=== PATIENT | female | born 1935 ===

== ENCOUNTER 2020-05-07 07:19 | Outpatient (REF) | payer MEDICARE, MEDICAID, SELFPAY ==
[2020-05-07 08:57] LABS: MANUAL DIFF FLAG NO
[2020-05-07 09:05] LABS: Basophils Absolute Auto 0.1 X10*3/uL (0.0-0.2); Basophils Percent Auto 0.7 % (0-2); Eosinophils Absolute Auto 0.3 X10*3/uL (0.0-0.4); Hematocrit 39.9 % (37-47); Hemoglobin 12.2 g/dl (12.0-16.0); Imm Gran Abs Auto 0.01 X10*3/uL (0.00-0.03); Imm Gran Pct Auto 0.1 % (0.0-0.4); Lymphocytes Absolute Auto 1.9 X10*3/uL (1.2-4.9); Lymphocytes Percent Auto 26.8 % (20-40); Mean Corpuscular HGB Conc 30.6 g/dl (31.0-35.0); Mean Corpuscular Hemoglobin 23.4 pg (27.0-33.0); Mean Corpuscular Volume 76.4 fL (80-98); Mean Platelet Volume 12.5 fL (9.4-12.3); Monocytes Absolute Auto 0.7 X10*3/uL (0.1-1.2); Monocytes Percent Auto 9.4 % (2-11); Neutrophils Absolute Auto 4.1 X10*3/uL (2.0-8.3); Platelet Count 226 X10*3/uL (160-400); Red Blood Count 5.22 X10*6/uL (4.20-5.50); White Blood Count 6.9 X10*3/uL (4.8-10.8)
[2020-05-07 09:22] LABS: Alanine Aminotransferase 13 U/L (0-31); Albumin Level 4.1 g/dL (3.5-5.0); Alkaline Phosphatase 85 U/L (39-117); Anion Gap 13 (12-20); Aspartate Amino Transferase 20 U/L (5-31); Bilirubin Total 0.6 mg/dL (0.0-1.0); Blood Urea Nitrogen 18 mg/dL (9-16); Calcium 9.1 mg/dL (8.4-10.2); Carbon Dioxide 27 mmol/L (22-29); Chloride 107 mmol/L (96-108); Cholesterol 169 mg/dL; Estimated Glomerular Filt Rate > 60; Glucose Random 88 mg/dL (60-115); HDL Cholesterol 49 mg/dL; LDL Cholesterol Calculated 104 mg/dl; Potassium 4.6 mmol/L (3.3-5.1); Sodium 142 mmol/L (135-145); Total Protein 6.9 g/dL (6.5-8.0); Triglycerides 83 mg/dL
[2020-05-07 09:46] LABS: Free T4 (Free Thyroxine) 0.88 ng/dL (0.71-1.85); Vitamin D 25-OH Total 19.8 ng/mL (>30)
[2020-05-07 10:10] LABS: Erythrocyte Sedimentation Rate 18 MM/HR (0-20)
[2020-05-08 12:11] LABS: Folate 6.9 ng/mL (> or = 4.0); Vitamin B12 359 pg/mL (200-900)
== END 2020-05-07 07:20 | disposition home or self-care (01) ==
LOC: HO.LAB 07:19
PROVIDERS: PCP Internal Medicine; Visit Provider Internal Medicine
DX: E78.00 Pure hypercholesterolemia, unspecified (principal); M06.09 Rheumatoid arthritis without rheumatoid factor, multiple sites; Z20.822 Contact with and (suspected) exposure to COVID-19
CPT/HCPCS: 36415; 80053; 80061; 82306; 82607; 82746; 84439; 84443; 85025; 85652; U0003; U0005

== ENCOUNTER 2021-02-04 07:24 | Outpatient (REF) | payer MEDICARE, MEDICAID, SELFPAY ==
[2021-02-04 07:33] LABS: MANUAL DIFF FLAG NO
[2021-02-04 08:32] LABS: Basophils Absolute Auto 0.1 X10*3/uL (0.0-0.2); Basophils Percent Auto 0.8 % (0-2); Eosinophils Absolute Auto 0.3 X10*3/uL (0.0-0.4); Eosinophils Percent Auto 3.8 % (0-4); Hematocrit 40.6 % (37.0-47.0); Hemoglobin 12.6 g/dl (12.0-16.0); Imm Gran Abs Auto 0.03 X10*3/uL (0.00-0.03); Imm Gran Pct Auto 0.4 % (0.0-0.4); Immature Retic Fraction 14.2 % (3.0-15.9); Lymphocytes Absolute Auto 2.2 X10*3/uL (1.2-4.9); Lymphocytes Percent Auto 28.6 % (20-40); Mean Corpuscular Hemoglobin 23.8 pg (27.0-33.0); Mean Corpuscular Volume 76.6 fL (80.0-98.0); Mean Platelet Volume 12.2 fL (9.4-12.3); Monocytes Absolute Auto 0.6 X10*3/uL (0.1-1.2); Monocytes Percent Auto 7.8 % (2-11); Neutrophils Absolute Auto 4.4 x10*3/uL (2.0-8.3); Neutrophils Percent Auto 58.6 % (45-73); Platelet Count 215 X10*3/uL (160-400); Red Cell Distribution Width 14.6 % (11.0-16.0); Retic HGB Equivalent 25.9 pg (30.0-35.0); Reticulocyte Percent 1.3 % (0.5-1.8); Reticulocytes Absolute 0.067 X10*6/uL (0.026-0.095); White Blood Count 7.5 X10*3/uL (4.8-10.8)
[2021-02-04 09:08] LABS: Alanine Aminotransferase 22 U/L (0-31); Albumin Level 4.1 g/dL (3.5-5.0); Alkaline Phosphatase 95 U/L (39-117); Anion Gap 12 (12-20); Aspartate Amino Transferase 25 U/L (5-31); Bilirubin Total 0.4 mg/dL (0.0-1.0); Blood Urea Nitrogen 15 mg/dL (9-16); Calcium 9.7 mg/dL (8.4-10.2); Carbon Dioxide 26 mmol/L (22-29); Chloride 107 mmol/L (96-108); Cholesterol 180 mg/dL; Estimated Glomerular Filt Rate > 60; Glucose Random 84 mg/dL (60-115); HDL Cholesterol 55 mg/dL; Iron 105 mcg/dL (30-160); LDL Cholesterol Calculated 112 mg/dl; Percent Iron Saturation 37 % (15-50); Potassium 4.5 mmol/L (3.3-5.1); Sodium 140 mmol/L (135-145); Total Iron Binding Capacity 283 mcg/dL (228-428); Total Protein 7.1 g/dL (6.5-8.0); Triglycerides 66 mg/dL; Unsaturated Iron Binding 178 ug/dL
[2021-02-04 09:16] LABS: Ferritin 120 ng/mL (10-250)
[2021-02-04 10:52] LABS: Folate 8.8 ng/mL (> or = 4.0); Vitamin B12 394 pg/mL (200-900)
== END 2021-02-04 07:25 | disposition home or self-care (01) ==
LOC: HO.LAB 07:24
PROVIDERS: PCP Internal Medicine; Visit Provider Internal Medicine
DX: R71.8 Other abnormality of red blood cells (principal); E78.00 Pure hypercholesterolemia, unspecified
CPT/HCPCS: 36415; 80053; 80061; 82607; 82728; 82746; 83540; 85025; 85045

== ENCOUNTER 2021-06-17 10:04 | Outpatient (REF) | payer MEDICARE, MEDICAID, SELFPAY ==
--- NOTE | ~2021-06-17 | MM_ITS ---
EXAMINATION: BONE DENSITOMETRY CLINICAL INDICATION: Menopausal. COMPARISON: This is the patient's baseline examination. TECHNIQUE: Using a [employer] DXA System (software version: 13.1) manufactured by [employer], dual-energy x-ray absorptiometry was performed of the lumbar spine and left hip. The images are of good technical quality. Summary results are attached. FINDINGS: AP SPINE L1-L4: BMD 1.130 g/cm2, Z-score 1.8, T-score -0.4, normal. LEFT FEMUR, NECK: BMD 0.750 g/cm2, Z-score 0.6, T-score -2.1, osteopenia. LEFT FEMUR, TOTAL: BMD 0.744 g/cm2, Z-score 0.5, T-score -2.1, osteopenia. IDENTIFIED RISK FACTORS: Rheumatoid arthritis, dementia, menopause, hysterectomy, bilateral oophorectomy. HISTORY OF FRACTURE: None listed. MEDICATIONS: Calcium supplements or multivitamin, vitamin D. MM/XR DEXA axial skeleton IMPRESSION: 1. DIAGNOSIS: Osteopenia based on the lowest T-score value of -2.1 in the femoral neck and total femur applying World Health Organization criteria. 2. 10-YEAR FRACTURE RISK PREDICTION, FRAX: Major osteoporotic fracture (clinical spine, forearm, hip or shoulder) 19.7%. Hip fracture 7.1%. 3. Treatment Recommendations: NOF guidelines recommend consideration for treatment in postmenopausal women and men age 50 and older presenting with the following: -A hip or vertebral (clinical or morphometric) fracture. -T-score less than or equal to -2.5 at the femoral neck or spine after appropriate evaluation to exclude secondary causes. -Low bone mass at the hip or spine and a 10-year fracture probability by FRAX of greater than or equal to 3% for hip fracture or greater than or equal to 20% for major osteoporotic fracture based on the [place] adapted WHO algorithm. 4. Other Recommendations: All treatment decisions require clinical judgment and consideration of individual patient factors, including patient preferences, comorbidities, previous drug use, risk factors not captured in the FRAX model (e.g. frailty, falls, vitamin D deficiency, increased bone turnover, interval significant decline in bone density) and possible under or overestimation of fracture risk by FRAX. Additional medical evaluation for secondary cause of low bone mineral density may be appropriate. FUTURE SCAN RECOMMENDATION: People with diagnosed cases of osteoporosis or at high risk for fracture should have regular bone mineral density tests. For patients eligible for Medicare, routine testing is allowed once every 2 years. The testing frequency can be increased to one year for patients who have rapidly progressing disease, those who are receiving or discontinuing medical therapy to restore bone mass, or have additional risk factors.
== END 2021-06-17 10:05 | disposition home or self-care (01) ==
LOC: HO.MAMMO 10:04
PROVIDERS: Visit Provider Nurse Practitioner Family
DX: Z13.820 Encounter for screening for osteoporosis (principal); Z78.0 Asymptomatic menopausal state; M85.80 Other specified disorders of bone density and structure, unspecified site
CPT/HCPCS: 77080

== ENCOUNTER 2021-07-29 07:25 | Outpatient (REF) | payer MEDICARE, MEDICAID, SELFPAY ==
[2021-07-29 08:47] LABS: Influenza A PCR NEGATIVE (Negative); Influenza B PCR NEGATIVE (Negative); Resp Syncy Virus RNA Qual PCR NEGATIVE (Negative); SARS COV2 PCR INHOUSE NEGATIVE (Negative)
== END 2021-07-29 07:26 | disposition home or self-care (01) ==
LOC: HO.LAB 07:25
PROVIDERS: Visit Provider Nurse Practitioner Family
DX: R09.81 Nasal congestion (principal); Z20.822 Contact with and (suspected) exposure to COVID-19
CPT/HCPCS: 0241U

== ENCOUNTER 2021-09-27 07:12 | Outpatient (REF) | payer MEDICARE, MEDICAID, SELFPAY ==
[2021-09-27 07:58] LABS: Alanine Aminotransferase 10 U/L (0-31); Alkaline Phosphatase 79 U/L (39-117); Anion Gap 12 (12-20); Aspartate Amino Transferase 17 U/L (5-31); Bilirubin Total 0.4 mg/dL (0.0-1.0); Blood Urea Nitrogen 14 mg/dL (9-16); Calcium 9.3 mg/dL (8.4-10.2); Carbon Dioxide 25 mmol/L (22-29); Chloride 108 mmol/L (96-108); Cholesterol 249 mg/dL; Estimated Glomerular Filt Rate > 60; Glucose Random 93 mg/dL (60-115); HDL Cholesterol 51 mg/dL; LDL Cholesterol Calculated 177 mg/dl; Potassium 4.4 mmol/L (3.3-5.1); Sodium 141 mmol/L (135-145); Total Protein 7.1 g/dL (6.5-8.0); Triglycerides 107 mg/dL
[2021-09-27 08:11] LABS: Free T4 (Free Thyroxine) 1.38 ng/dL (0.71-1.85); Thyroid Stimulating Hormone 2.27 uIU/mL (0.32-4.0)
== END 2021-09-27 07:13 | disposition home or self-care (01) ==
LOC: HO.LAB 07:12
PROVIDERS: PCP Internal Medicine; Visit Provider Internal Medicine
DX: E78.00 Pure hypercholesterolemia, unspecified (principal)
CPT/HCPCS: 36415; 80053; 80061; 84439; 84443

== ENCOUNTER 2022-04-05 06:35 | Outpatient (REF) | payer MEDICARE, MEDICAID, SELFPAY ==
[2022-04-05 06:41] LABS: MANUAL DIFF FLAG NO
[2022-04-05 07:41] LABS: Basophils Absolute Auto 0.1 X10*3/uL (0.0-0.2); Basophils Percent Auto 0.9 % (0-2); Eosinophils Absolute Auto 0.3 X10*3/uL (0.0-0.4); Eosinophils Percent Auto 3.8 % (0-4); Hematocrit 40.9 % (37.0-47.0); Hemoglobin 12.8 g/dl (12.0-16.0); Imm Gran Abs Auto 0.02 X10*3/uL (0.00-0.03); Imm Gran Pct Auto 0.2 % (0.0-0.4); Immature Retic Fraction 13.9 % (3.0-15.9); Lymphocytes Absolute Auto 2.5 X10*3/uL (1.2-4.9); Lymphocytes Percent Auto 29.4 % (20-40); Mean Corpuscular HGB Conc 31.3 g/dl (31.0-35.0); Mean Corpuscular Hemoglobin 23.8 pg (27.0-33.0); Mean Platelet Volume 11.8 fL (9.4-12.3); Monocytes Absolute Auto 0.9 X10*3/uL (0.1-1.2); Monocytes Percent Auto 10.1 % (2-11); Neutrophils Absolute Auto 4.7 x10*3/uL (2.0-8.3); Neutrophils Percent Auto 55.6 % (45-73); Platelet Count 220 X10*3/uL (160-400); Red Blood Count 5.38 X10*6/uL (4.20-5.50); Red Cell Distribution Width 15.1 % (11.0-16.0); Retic HGB Equivalent 26.9 pg (30.0-35.0); Reticulocyte Percent 1.3 % (0.5-1.8); Reticulocytes Absolute 0.069 X10*6/uL (0.026-0.095); White Blood Count 8.5 X10*3/uL (4.8-10.8)
[2022-04-05 08:12] LABS: Alanine Aminotransferase 13 U/L (0-31); Alkaline Phosphatase 83 U/L (39-117); Anion Gap 17 (12-20); Aspartate Amino Transferase 18 U/L (5-31); Bilirubin Total 0.7 mg/dL (0.0-1.0); Blood Urea Nitrogen 16 mg/dL (9-16); C Reactive Protein 0.25 mg/dL (< or = 0.50); Calcium 9.4 mg/dL (8.4-10.2); Carbon Dioxide 22 mmol/L (22-29); Chloride 105 mmol/L (96-108); Cholesterol 178 mg/dL; Estimated Glomerular Filt Rate > 60; Glucose Random 83 mg/dL (60-115); HDL Cholesterol 61 mg/dL; Iron 82 mcg/dL (30-160); LDL Cholesterol Calculated 103 mg/dl; Percent Iron Saturation 29 % (15-50); Sodium 140 mmol/L (135-145); Total Iron Binding Capacity 285 mcg/dL (228-428); Total Protein 6.9 g/dL (6.5-8.0); Triglycerides 70 mg/dL; Unsaturated Iron Binding 203 ug/dL
[2022-04-05 08:26] LABS: Erythrocyte Sedimentation Rate 19 MM/HR (0-20)
[2022-04-05 08:32] LABS: Ferritin 105 ng/mL (10-250); Folate 9.9 ng/mL (> or = 4.0); Free T4 (Free Thyroxine) 0.85 ng/dL (0.71-1.85); Thyroid Stimulating Hormone 3.16 uIU/mL (0.32-4.0); Vitamin B12 316 pg/mL (200-900); Vitamin D 25-OH Total 11.4 ng/mL (>30)
== END 2022-04-05 06:36 | disposition home or self-care (01) ==
LOC: HO.LAB 06:35
PROVIDERS: PCP Internal Medicine; Visit Provider Internal Medicine
DX: E78.00 Pure hypercholesterolemia, unspecified (principal); R71.8 Other abnormality of red blood cells; M06.09 Rheumatoid arthritis without rheumatoid factor, multiple sites; M85.80 Other specified disorders of bone density and structure, unspecified site; E55.9 Vitamin D deficiency, unspecified
CPT/HCPCS: 36415; 80053; 80061; 82306; 82607; 82728; 82746; 83540; 84439; 84443; 85025; 85045; 85652; 86140

== ENCOUNTER 2022-04-06 09:05 | Outpatient (REF) | payer MEDICARE, MEDICAID, SELFPAY ==
--- NOTE | 2022-04-06 11:32 | MHC.AU.HA1 ---
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 Discussed importance of daily, consistent use. Luna is accompanied by Paz, her friend and healthcare proxy. Per Paz, Luna is showing signs of dementia. She also often has difficulty understanding conversations and requires frequent repetition. Luna and Paz opted for a rechargeable BTE hearing aid due to its durability. Luna wears a veil over her ears. Kendall'ed [id number] portion of hearing aid with the veil and she reported no issues with comfort. Paz reported that hearing aids will be beneficial for Luna once she adjusts to wearing them. Hearing Aid Prescription: Based on the individual?s shared listening needs, communication environments, dexterity, desire for connectivity, and personal preferences, the following prescription for amplification has been made: Right ear: Make, Model, Color: Oticon More 2 miniBTE-R Color: Chroma Beige Battery Size: Rechargeable Type of Earmold/Dome/CShell/SlimTip: Microsonic acrylic canal lock Left ear: Left ear prescription to be same as Right Hearing Aid above: Make, Model, Color: Oticon More 2 miniBTE-R Color: Chroma Beige Battery Size: Rechargeable Type of Earmold/Dome/CShell/SlimTip: Microsonic acrylic canal lock Plan of Care: Patient wishes to purchase hearing aids as prescribed Action Taken/Action Needed: Earmold Impressions Taken. Medical Clearance to be requested from PCP/ENT. Hearing Instrument Fitting to be scheduled when materials arrive Primary Diagnosis: H90.3 Bilateral Sensorineural Hearing Loss Signature: Provider: Dwain Purvis, [facility]
--- NOTE | 2022-04-06 11:33 | MHC.AU.MED ---
Medical Clearance for Hearing Instrumentation Date: 04/06/22 Patient Name: Luna Hoang SR Date of : 1935 Primary Care Provider: Jordon Nelson MD We have seen your patient on 04/06/22 and have determined that they are a candidate for amplification (See accompanying report). Specifically, they would benefit from: Hearing aid use in both ears There is a statute that addresses Medical Evaluation Requirements prior to fitting a patient with a hearing aid. According to [place] statute 265 CMR:6.03(1), (a) General. Except as provided in 265 CMR 6.03(1)(b), a administrative receptionist shall not sell a hearing aid unless the prospective user has presented to the administrative receptionist a written statement signed by a licensed physician that states that the patient's hearing loss has been medically evaluated and the patient may be considered a candidate for a hearing aid. The medical evaluation must have taken place within the preceding six months. Please note: Due to the [place] Statute referenced above, we cannot accept a signature other than that of a licensed physician. SIDING APPLICATOR and PA signatures cannot be accepted. I am in agreement with the above recommendation. There is no medical contraindication for hearing instrumentation. Physician Signature Date Physician Name (Printed)
== END 2022-04-06 09:06 | disposition home or self-care (01) ==
LOC: HO.SH 09:05
PROVIDERS: Visit Provider Internal Medicine
DX: H90.3 Sensorineural hearing loss, bilateral (principal)
CPT/HCPCS: 92557; 92591; V5275

== ENCOUNTER 2022-05-16 13:56 | Outpatient (REF) | payer MEDICARE, MEDICAID, SELFPAY ==
--- NOTE | 2022-05-16 15:10 | MHC.AU.HFA ---
Hearing Instrument Fitting- Adult- Binaural Date of Visit: 05/16/22 Hearing Instruments Dispensed: Right Ear: Oticon More 2 miniBTE-R Chroma Beige [id number] Repair Warranty: 05/14/2025 Loss and Damage Warranty: 05/14/2025 Battery Size: Rechargeable Type of Mold: Microsonic acrylic canal lock, 13 double tubing Left Ear: Oticon More 2 miniBTE-R Chroma Beige [id number] Repair Warranty: 05/14/2025 Loss and Damage Warranty: 05/14/2025 Battery Size: Rechargeable Type of Mold: Microsonic acrylic canal lock, 13 double tubing Summary of Fitting: The patient was here today for a hearing aid fitting, accompanied by her health proxy. Ear molds fit well bilaterally. The tubing that came with the ear molds were loose so I replaced them with thicker 13 double tubing and that secured nicely. Hearing aids were programmed to adaptation level 3. VC and controls are disabled. The low battery visual indicator is enabled. Real ear measurements reveal the hearing aids are functioning and meeting targets appropriately. I did decrease MPO bilaterally by 2 clicks to better meet targets. No feedback noted from either ear. Sister Luna reported a comfortable fit and good volume. We reviewed insertion, removal, charging, cleaning and general hearing aid care. The patient was able to insert/remove the hearing aids after some practice. The patient does have Dementia so her health proxy will assist with hearing aid care. [employer] receipt signed and given to patient. The patient will return in 2-4 weeks for a check. Sister Luna has no other questions at this time. Diagnosis Code(s): Primary Diagnosis: H90.3 Bilateral Sensorineural Hearing Loss Signature: Provider: Karina Robertson, [facility]
== END 2022-05-16 13:57 | disposition home or self-care (01) ==
LOC: HO.HAP 13:56
PROVIDERS: Visit Provider Internal Medicine
DX: Z46.1 Encounter for fitting and adjustment of hearing aid (principal); H90.3 Sensorineural hearing loss, bilateral
CPT/HCPCS: 92595; V5011; V5160; V5261; V5264

== ENCOUNTER 2022-07-13 10:15 | Outpatient (REF) | payer MEDICARE, MEDICAID, SELFPAY ==
--- NOTE | ~2022-07-13 | XR_ITS ---
EXAMINATION: XR CHEST CLINICAL INFORMATION: Atherosclerotic heart disease COMPARISON: None available. TECHNIQUE: 2 views of the chest were obtained. FINDINGS: The cardiac silhouette does not appear enlarged. The thoracic aorta is calcified and tortuous. Hilar and mediastinal contours are otherwise unremarkable. Left subclavian pacemaker. Coronary artery stent. The lungs are clear. No pleural effusion or pneumothorax. Degenerative changes of the spine and scoliosis. XR/XR chest 2V IMPRESSION: No evidence for acute disease in the chest.
--- NOTE | 2022-07-13 10:22 | ECG_ITS ---
Test Reason : ascd Blood Pressure : / mmHG Vent. Rate : 054 BPM Atrial Rate : 054 BPM P-R Int : 188 ms QRS Dur : 130 ms QT Int : 428 ms P-R-T Axes : 057 -47 097 degrees QTc Int : 405 ms Sinus bradycardia Left axis deviation Left bundle branch block Abnormal ECG No previous ECGs available Referred By: Jordon Nelson Electronically Signed By:Pablito Wade
== END 2022-07-13 10:16 | disposition home or self-care (01) ==
LOC: HO.XRAY 10:15
PROVIDERS: PCP Internal Medicine; Visit Provider Internal Medicine
DX: I25.10 Atherosclerotic heart disease of native coronary artery without angina pectoris (principal)
CPT/HCPCS: 71046; 93005

== ENCOUNTER → 2022-08-08 08:57 | Outpatient (REF) | payer MEDICARE, MEDICAID, SELFPAY ==
--- NOTE | ~2022-08-08 | NM_ITS ---
Myocardial perfusion study Indication: Shortness of breath evaluate for myocardial ischemia Technique: The patient was brought in for a Lexiscan perfusion study on 08/08/2022. Patient performed low-level exercise and was injected 0.4 mg of Lexiscan intravenously. Within a minute of injection, 25 mCi of sestamibi was given intravenously. Images were obtained using the SPECT gamma camera interlaced with the gating device. Images were obtained in supine position. Resting perfusion study was performed on 08/10/2022. Patient was administered 25 mCi of sestamibi intravenously at rest. Images were then obtained in supine position. Images obtained with and without CT attenuation. Total DLP 110 mGy-cm. Images were processed with the software and compared side to side in short axis, horizontal long axis and vertical long axis views. Findings: The stress perfusion study showed non attenuated images show mildly reduced uptake in the basal septum and inferoseptal wall of the LV myocardium. Remainder of the LV myocardium is normally perfused. Attenuation corrected images show mildly reduced uptake in the distal septum and anterior wall of the LV myocardium as well as mildly reduced uptake in the apex of the LV myocardium.. The gated study shows normal LV systolic function with calculated LVEF of 69%. LV cavity is normal in size. The gated study shows normal systolic wall thickening and contraction of segments. Resting study shows no change in perfusion pattern compared to stress perfusion study. Gating at rest reveals normal systolic wall motion with ejection fraction at 72%. The findings are consistent with normal myocardial perfusion. NM/NM cardiolite stress test Impression: 1. Myocardial perfusion imaging study shows normal myocardial perfusion 2. Gated LVEF is 69% 3. Transient ischemic dilatation not present EKG is nondiagnostic for ischemia
--- NOTE | 2022-08-08 08:59 | CA_ITS ---
Transthoracic Echocardiogram Patient (Last, First, Middle): Luna Hoang, Gender: Female Date of : 1935 Age: 86 Procedure Date: 08/08/2022 Procedure Type: Transthoracic Echocardiogram Location: OP Height: 152.4 cm Weight: 58.97 kg BSA: 1.55 m2 Heart Rate: bpm BP: 125 / 75 mmHg Drying Machine Operator: ENEDELIA Referring MD: Jordon Nelson MD Marketing And Outreach Coordinator: Luis Garber MD Symptoms: I25.10 - Atherosclerotic heart disease of [place] coronary artery without... Study Quality: Fair, Off axis parasternal views ECG Rhythm: Sinus Conclusions: - 1. Normal LV systolic function with impaired relaxation filling pattern 2. Early mild aortic stenosis 3. Normal RV systolic pressure 4. No gross pericardial effusion Findings Left Ventricle Normal left ventricular size, thickness, and systolic function. The visually estimated ejection fraction is between 60-65%. Spectral Doppler is indicative of an impaired relaxation filling pattern. E/E prime ratio is between 8 and 15 consistent with indeterminate filling pressures. Wall Motion Rest Echo Findings The basal inferior segment is hypokinetic. All other scored wall segments showed normal motion. Right Ventricle Normal right ventricular cavity size and systolic function. There is a pacemaker wire seen in the right ventricle. Atria The left atrium is likely dilated. There is no evidence of interatrial shunt. The right atrium is normal in size. Aortic Valve There is mild calcification of the aortic valve. There is mild aortic valve stenosis. The peak aortic gradient is 19 mmHg.The mean gradient is 11 mmHg. There is trace (trivial) aortic valve regurgitation. Mitral Valve There is mild anterior and posterior mitral leaflet thickening. There is mild mitral annular calcification. There is trace mitral valve regurgitation. There is no mitral valve stenosis. Pulmonic Valve The pulmonic valve was not well visualized. Tricuspid Valve Likely normal tricuspid valve structure and function. There is trace tricuspid valve regurgitation. The right ventricular systolic pressure is normal. The right ventricular systolic pressure is 17 mmHg. Normal right atrial pressure. There is no evidence of pulmonary hypertension. Great Vessels All visible segments of the aorta are normal in size. The pulmonary artery was not well visualized. Venous The inferior vena cava is normal in size and collapses greater than 50% with inspiration. Pericardium/Pleural There is no evidence of pericardial effusion. Prior Study Comparison Changes noted compared to prior study dated: 10/10/2016. Early mild aortic stenosis is present Measurements 2D Linear Measurements IVSd: 1.06 0.6-0.9/0.6-1.0 cm LVIDd: 3.44 3.9-5.3/4.2-5.9 cm LVIDd Index: 2.22 2.4-3.2/2.2-3.1 cm/m2 LVIDs: 1.87 2.0-3.6 cm LVPWd: 1.06 0.7-1.1 cm LA Diam: 3.00 2.7-3.8/3.0-4.0 cm LAIDs Index: 1.94 1.5-2.3 cm/m2 LV Mass: 136.42 67-162/88-224 g LV Mass Index: 88.01 43-95/49-115 g/m2 LVOT Diam: 2.00 3.0+(-)1.3 cm 2D Systolic Function EF 4C: 63.80 >55% EF 2C: 63.90 >55% EF BiP: 62.60 >55% Mitral Valve MV Pk E: 0.68 MV PK A: 0.97 MV Decel Time: 388.00 E/A: 0.70 E'Lateral: 5.66 E'Medial: 5.44 E/E' Med: 12.50 E/E' Lat: 12.00 PHT: 114.00 MVA PHT: 1.93 Decel [place]: 1.76 Aortic Valve AoV Pk Robbi: 2.20 AoV Mn Robbi: 1.61 AoV VTI: 0.42 AoV Pk Grad: 19.00 Aov Mn Grad: 11.00 ROSEMARY Cont.VTI: 2.41 LVOT LVOT Pk Robbi: 1.45 LVOT Mn Robbi: 1.06 LVOT VTI: 0.32 LVOT Pk Grad: 8.00 LVOT Mn Grad: 5.00 LVOT Diam: 2.00 LVOT Area: 3.14 Diastolic Function MV Pk E: 0.68 MV Pk A: 0.97 E/A: 0.70 E'Medial: 5.44 E/E' Med: 12.50 E' Laterial: 5.66 E/E' Lat: 12.00 Right Ventricle TAPSE (mm): 21.00 TVS' Robbi: 13.00 Tricuspid Valve TR Pk Robbi: 1.90 TR Pk Grad: 14.00 RA Press: 3.00 RVSP: 17.00 Great Vessels Aorta Sinus of Valsalva: 3.20 2.0-3.5 cm Ao Asc: 2.60 2.1-3.4 cm Updated in Other Vendor System with Status of Final Luis Garber MD electronically signed on 08/08/2022 12:00:54 PM with status of Final
--- NOTE | 2022-08-08 08:59 | CA_ITS ---
Acquisition Time: 2022-08-08 10:07:42 Total Exercise Time: 00:02:00 Test Indications: SOB, LBBB Medications: SEE H Protocol: LEXISCAN Max HR: 099 BPM 74% of Pred: 133 BPM Max BP: 122/068 mmHG Max Work Load: 1.0 METS Pharmacological stress test with Lexiscxan injection while sitting and kicking her legs, without anginal symptoms, without arrhythmias, with normotensive response to injection, without EKG changes. Aminophylline 75mg IVP given to reverse Lexiscan injection. Nuclear images pending. Test reviewed with Dr. Garber. Referred By: Jordon Nelson Overread By: DEEPAK CLARK
== END ==
LOC: HO.CARD 08:57
PROVIDERS: PCP Internal Medicine; Visit Provider Internal Medicine
DX: R06.02 Shortness of breath (principal); I25.10 Atherosclerotic heart disease of native coronary artery without angina pectoris
CPT/HCPCS: 78452; 93017; 93306; A9500; J0280; J2785

== ENCOUNTER 2022-09-19 12:38 | Outpatient (AMB) | payer MEDICARE, MEDICAID, SELFPAY ==
[2022-09-19 12:42] VITALS: BP 124/72; PULSE 69; O2SAT 98; BMI 27.2
--- NOTE | 2022-09-19 12:42 | MHC.PC.OV ---
Vital Signs 09/19/22 12:42 Height 4 ft 10 in Weight 130 lb BMI 27.2 BP 124/72 Blood Pressure Location Lt brachial Position Sitting Pulse 69 Pulse Source Pulse Oximeter Pulse Oximetry (%) 98 Oxygen Delivery Method Room Air Intake Visit Reasons: Shortness of breath Allergies SEASONAL ALLERGIES Allergy (Mild, Uncoded 09/19/22 12:43) ITCHY EYES seasonal dust, pollen, etc. Allergy (Unknown, Uncoded 09/19/22 12:43) redness, coughing Medication List - Last Reconciled 09/19/22 by Jordon Nelson MD aspirin (Kristie Low Dose Aspirin) 81 mg PO DAILY ezetimibe (Zetia) 10 mg PO DAILY fexofenadine (Manisha Allergy) 180 mg PO DAILY rosuvastatin 40 mg PO DAILY Tobacco use date assessed: 04/04/22 Fall risk assessment: No Falls in past year Last assessed Fall Risk: 09/19/22 Dental Screening Dental Screen Date: 09/19/22 Did you have a dental visit in the last 12 months?: Yes Did you have a dental problem in the last 6 months where you did not have access to dental care?: No Was dental information given to patient?: Patient has dentist HPI Shortness of breath HPI Details 88-year-old sister with hypercholesterolemia rheumatoid arthritis coronary artery disease coming in for follow-up. Patient had some shortness of breath on exertion and workup was started. Patient was last seen in June 2022 echocardiogram ordered normal left ventricular systolic function impaired relaxation, mild aortic stenosis myocardial perfusion imaging normal [facility] Medical History Coronary artery disease Dementia Exposure to COVID-19 virus Hypercholesterolemia Insomnia Osteoarthritis, knee Pacemaker Rheumatoid arthritis Surgical History History of hysterectomy Social History Housing: House Alcohol intake: never Patient Tobacco Use Status: Never used Tobacco e-Cigarette/Vaping Use: Never Used Second Hand Smoke Exposure: No Current occupational status: retired Cognitive needs: Yes Hearing needs: Yes Vision needs: Yes Questionnaire PHQ-9 Over the last 2 weeks, how often have you been bothered by any of the following problems? 1. Little interest or pleasure in doing things: not at all 2. Feeling down, depressed, or hopeless: not at all 3. Trouble falling or staying asleep, or sleeping too much: not at all 4. Feeling tired or having little energy: not at all 5. Poor appetite or overeating: not at all 6. Feeling bad about yourself - or that you are a failure or have let yourself or your family down: not at all 7. Trouble concentrating on things, such as reading the newspaper or watching television: not at all 8. Moving or speaking so slowly that other people could have noticed. Or the opposite - being so fidgety or restless that you have been moving around a lot more than usual: not at all 9. Thoughts that you would be better off or of hurting yourself in some way: not at all Total score: 0 Depression Screening Interpretation: Negative Source: Developed by Drs. Jose Mahmood, Adilene Rader, Chauncey Garcia and colleagues, with an educational yogesh from [employer]. Thrive Questionnaire Date Thrive assessed: 07/04/22 AUDIT C Alcohol Use Questionnaire (AUDIT-C) 1. How often do you have a drink containing alcohol?: Never 3. How often do you have six or more drinks on one occasion?: Never Total Score: 0 Score Reviewed/Action Taken: No OMAR-7 AMB Questionnaire OMAR-7 Date OMAR - 7 assessed: 07/04/22 Source: Developed by Drs. Jose Mahmood, Adilene Rader, Chauncey Garcia and colleagues, with an educational yogesh from [employer] 8. Physical exam (Primary Care) Vital Signs: Last Vital Signs Pulse 69 09/19/22 12:42 BP 124/72 09/19/22 12:42 Pulse Ox 98 09/19/22 12:42 Oxygen Delivery Method Room Air 09/19/22 12:42 BMI result Body Mass Index 27.2 Tobacco/Smoking Status: Tobacco use Status Tobacco use date assessed 04/04/22 09/19/22 12:47 Patient Tobacco Use Status Never used Tobacco 09/19/22 12:47 e-Cigarette/Vaping Use Never Used 09/19/22 12:47 PHQ-9: PHQ-9 Score PHQ-9: Total score 0 09/19/22 12:47 Depression Screening Interpretation: Negative Thrive Assessment: Date of Thrive Assessment Date Thrive assessed 07/04/22 09/19/22 12:47 Const General: alert; No acute distress Eyes Conjunctivae: conjunctivae normal Resp Auscultation: clear to auscultation bilaterally Cardio Rate: regular rate Rhythm: regular rhythm GI Inspection: Yes normal to inspection Extrem General: Yes normal to inspection and No edema Assessment and Plan Assessment & Plan (1) SOB (shortness of breath) on exertion: Code(s): R06.02 - Shortness of breath Plan: So far the cardiac workup has been negative (2) Coronary artery disease: Comment: LAD branch D 1 Code(s): I25.10 - Atherosclerotic heart disease of [place] coronary artery without angina pectoris Qualifiers: Coronary Disease-Associated Artery/Lesion type: [place] artery [place] vs. transplanted heart: [place] heart Associated angina: without angina Qualified Code(s): I25.10 - Atherosclerotic heart disease of [place] coronary artery without angina pectoris Plan: Control the cholesterol, weight, blood pressure (3) Hypercholesterolemia: Code(s): E78.00 - Pure hypercholesterolemia, unspecified Plan: Avoid fried foods, chicken skin, eggs, butter margarine, pastries and meat. Be it pork or beef they have a lot of cholesterol LDL goal of less than 70 and triglyceride of less than 150 patient on rosuvastatin Coding Level of Care Code Est Pt Level 4 (16111) Diagnoses SOB (shortness of breath) on exertion R06.02 Coronary artery disease I25.10 Coronary Disease-Associated Artery/Lesion type: [place] artery [place] vs. transplanted heart: [place] heart Associated angina: without angina Hypercholesterolemia E78.00 Additional Codes PHQ-9 - 57277 - PHQ-9 Billing: Y ([id number])
== END 2022-09-19 13:07 | disposition home or self-care (01) ==
PROVIDERS: PCP Internal Medicine; Visit Provider Internal Medicine
DX: R06.02 Shortness of breath (principal); I25.10 Atherosclerotic heart disease of native coronary artery without angina pectoris; E78.00 Pure hypercholesterolemia, unspecified
CPT/HCPCS: 99214

== ENCOUNTER 2022-10-19 13:13 | Outpatient (AMB) | payer MEDICARE, MEDICAID, SELFPAY ==
[2022-10-19 13:15] VITALS: BP 118/70; PULSE 68; BMI 30.3
--- NOTE | 2022-10-19 13:15 | A.OFFVIS_ITS ---
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 Allergy (Unknown, Uncoded 10/19/22 13:19) redness, coughing Medication List - Last Reconciled 10/19/22 by Amrit Musa MD aspirin (Kristie Low Dose Aspirin) 81 mg PO DAILY ezetimibe (Zetia) 10 mg PO DAILY rosuvastatin 40 mg PO DAILY HPI HPI Comments History of Present Illness Details Patient is here for consultation regarding coronary disease. She really does not know much of details. It seems that she underwent a permanent pacemaker implantation in [facility] around [id number]. At that time, diagnosis was syncope but unknown details. Last seen by Dr. Wells in 2017. At that time, interrogation had shown [employer] pacemaker with a battery life of 5 years or so. However, it seems that she has not returned for follow- up since. Today, we tried to interrogate the device but there is no data and hence most likely at end of life. Otherwise, she has a history of coronary artery disease and drug-eluting stent to D1 branch of LAD in 2014. According to patient, main symptom is some shortness of breath with activity. No anginal-type chest pains. No palpitations. No dizzy spells or syncopal episodes. She is on aspirin and statins. [facility] Medical History Coronary artery disease Dementia Exposure to COVID-19 virus Hypercholesterolemia Insomnia Osteoarthritis, knee Pacemaker Rheumatoid arthritis Surgical History History of hysterectomy Social History Housing: House Alcohol intake: never Patient Tobacco Use Status: Never used Tobacco e-Cigarette/Vaping Use: Never Used Second Hand Smoke Exposure: No Current occupational status: retired Cognitive needs: Yes Hearing needs: Yes Vision needs: Yes Review of Systems Const Denies chills, Denies daytime sleepiness, Denies fatigue, Denies fever(s), Denies frequent falls, Denies night sweats, Denies snoring, Denies weakness, Denies weight gain and Denies weight loss Eyes Denies loss of vision ENT Denies dizziness and Denies hearing loss Card Denies chest pain, Denies chest pain with activity, Denies syncope, Denies rapid heart rate, Denies edema, Denies claudication, Denies leg edema, Denies lightheadedness, Denies palpitations, Denies dyspnea, Denies dyspnea on exertion and Denies orthopnea Resp Denies cough, Denies excessive phlegm production, Denies dyspnea, Denies dyspnea on exertion, Denies snoring and Denies wheezing GI Denies abdominal pain, Denies hematochezia, Denies change in bowel habits, Denies change in stool character, Denies heartburn, Denies nausea and Denies vomiting Denies hematuria, Denies urinary frequency and Denies dysuria Musc Denies arthralgias, Denies muscle weakness, Denies numbness and Denies tingling Skin/Breast Denies nail changes and Denies rash Neuro Denies Abnormal speech present, Denies dizziness, Denies syncope, Denies frequent falls, Denies loss of vision, Denies memory loss, Denies numbness, Denies tingling and Denies weakness Psych Denies depression and Denies memory loss Endo Denies fatigue and Denies palpitations Aller/Immun Denies wheezing Physical Exam Vital Signs: Last Vital Signs Pulse 68 10/19/22 13:15 BP 118/70 10/19/22 13:15 BMI result Body Mass Index 30.3 Const General: comfortable and no acute distress Orientation/consciousness: patient oriented x3 HEENT Other: Unremarkable Head: Yes normal to inspection Neck Neck: Yes normal visual inspection Chest Chest palpation & inspection: normal inspection of the chest Resp Auscultation: clear to auscultation bilaterally Cardio Palpation: normal PMI Heart sounds: S1 normal heart sound present, S2 normal heart sound present, no gallops, Murmur heart sound present systolic II/ and at the right sternal border and no rubs GI Palpation (GI): Soft to palpation Back/Spine/Pelvis Other: unremarkable Skin General skin exam: no rashes or lesions noted Neuro General: patient oriented x3 Speech: No Abnormal speech present Extrem General: Yes normal to inspection Psych Mental Status: mental status grossly normal Assessment & Plan Assessment & Plan (1) Coronary artery disease: Comment: LAD branch D 1 Code(s): I25.10 - Atherosclerotic heart disease of [place] coronary artery without angina pectoris Qualifiers: Coronary Disease-Associated Artery/Lesion type: [place] artery [place] vs. transplanted heart: [place] heart Associated angina: without angina Qualifi ed Code(s): I25.10 - Atherosclerotic heart disease of [place] coronary artery without angina pectoris Plan: Per documentation, history of drug-eluting stent to D1 branch of LAD in 2014. Myocardial perfusion imaging study with normal perfusion. Echocardiogram with normal LVEF, 60-65% and basal inferior hypokinesis. Clinically, she does not have any angina. Continue aspirin and statins. (2) Pacemaker: Comment: 2010, syncope AV block symptomatic bradycardia January 2011 Code(s): Z95.0 - Presence of cardiac pacemaker Plan: Has not been checked since 2017. Patient states she was not aware that this needs to be followed up. Today we tried to interrogate, but there is no data retrievable. Hence most likely, there is no further battery left. Need to see if this needs replacement or not, but she has not had any further syncope >10 years. Baseline EKG shows sinus bradycardia and left bundle-branch block. We can do a 2 week Holter monitor for further evaluation. (3) LBBB (left bundle branch block): Code(s): I44.7 - Left bundle-branch block, unspecified Plan: Plan as above. Plan Can also request records from time of initial pacemaker placement at [place], [place]. Orders: Orders ECG 14 day holter monitor Today R00.2 - Palpitations Coding Level of Care Code New Pt Level 4 (05945) Diagnoses Coronary artery disease I25.10 Coronary Disease-Associated Artery/Lesion type: [place] artery [place] vs. transplanted heart: [place] heart Associated angina: without angina Pacemaker Z95.0 LBBB (left bundle branch block) I44.7
== END 2022-10-19 13:57 | disposition home or self-care (01) ==
PROVIDERS: PCP Internal Medicine; Referring Provider Internal Medicine; Visit Provider Internal Medicine
DX: I25.10 Atherosclerotic heart disease of native coronary artery without angina pectoris (principal); Z95.0 Presence of cardiac pacemaker; I44.7 Left bundle-branch block, unspecified
CPT/HCPCS: 99204

== ENCOUNTER → 2022-10-19 13:13 | Outpatient (BNVA) | payer MEDICARE, MEDICAID, SELFPAY | PROVIDERS: PCP Internal Medicine; Referring Provider Internal Medicine; Visit Provider Internal Medicine | DX: I25.10 Atherosclerotic heart disease of native coronary artery without angina pectoris (principal); I44.7 Left bundle-branch block, unspecified; Z95.0 Presence of cardiac pacemaker | CPT/HCPCS: 99202 ==

== ENCOUNTER → 2022-10-24 09:53 | Outpatient (REF) | payer MEDICARE, MEDICAID, SELFPAY ==
--- NOTE | 2022-10-24 09:56 | HM_ITS ---
* Total monitoring time about 12 days. * Underlying rhythm is sinus. Average ventricular rate 69/Min. Range 50 to 103/Min. * Rare supraventricular ectopy with low burden. Brief runs noted. Longest 22 beats. * Rare ventricular ectopy. Brief runs noted. Longest 9 beats- NSVT. * Intermittent V-pacing. * No significant pauses or AV blocks. * No relevant events in diary. MTDD
== END ==
LOC: HO.CARD 09:53
PROVIDERS: PCP Internal Medicine; Visit Provider Internal Medicine
DX: R00.2 Palpitations (principal)
CPT/HCPCS: 93246

== ENCOUNTER → 2022-10-24 09:56 | Outpatient (BNV) | payer MEDICARE, MEDICAID, SELFPAY | PROVIDERS: PCP Internal Medicine; Visit Provider Internal Medicine | DX: I47.1 Supraventricular tachycardia (principal) | CPT/HCPCS: 93248 ==

== ENCOUNTER 2022-10-27 09:37 | Outpatient (AMB) | payer MEDICARE, MEDICAID, SELFPAY ==
[2022-10-27 09:50] VITALS: BP 116/64; PULSE 77; O2SAT 97; BMI 27.4
--- NOTE | 2022-10-27 09:50 | A.OFFPC_ITS ---
Vital Signs 10/27/22 09:50 Height 4 ft 10 in Weight 131 lb BMI 27.4 BP 116/64 Blood Pressure Location Lt brachial Position Sitting Pulse 77 Pulse Source Pulse Oximeter Pulse Oximetry (%) 97 Oxygen Delivery Method Room Air Intake Visit Reasons: skin irritation Allergies SEASONAL ALLERGIES Allergy (Mild, Uncoded 10/27/22 09:59) ITCHY EYES seasonal dust, pollen, etc. Allergy (Unknown, Uncoded 10/27/22 09:59) redness, coughing Tobacco use date assessed: 04/04/22 Fall risk assessment: No Falls in past year Last assessed Fall Risk: 10/27/22 Dental Screening Dental Screen Date: 10/27/22 Did you have a dental visit in the last 12 months?: Yes Did you have a dental problem in the last 6 months where you did not have access to dental care?: No Was dental information given to patient?: Patient has dentist HPI skin irritation HPI Details 88-year-old sister with coronary artery disease(being followed up by Cardiology patient has pacemaker in place for sick sinus syndrome) hypercholesterolemia coming in for follow-up. Patient was last seen in 3 had problems with shortness of breath and workup was done cardiac workup was negative having echocardiogram with normal ejection fraction myocardial perfusion normal. Cardiology notes in 2016 showing asymptomatic nonsustained ventricular tachycardia sick sinus syndrome with well-functioning cardiac pacemaker. Coronary artery disease with drug-eluting stent lifelong aspirin. Noted March blood work showing an elevated cholesterol patient presently on rosuvastatin and Zetia. complains of R leg swelling soaked in epsom salw which resolved. now doing good. also rash on the L lower back . Discussion with the patient regarding the light lower extremity swelling. Can be blood clot which is triggered by her being moving less and peripheral vascular disease. Discussed to her that no medication in the list causing leg swelling and that her sedentary lifestyle can cause the problem. Renal function in March as well as liver function were within normal limits [facility] Medical History Coronary artery disease Dementia Exposure to COVID-19 virus Hypercholesterolemia Insomnia Osteoarthritis, knee Pacemaker Rheumatoid arthritis Surgical History History of hysterectomy Social History Housing: House Alcohol intake: never Patient Tobacco Use Status: Never used Tobacco e-Cigarette/Vaping Use: Never Used Second Hand Smoke Exposure: No Current occupational status: retired Cognitive needs: Yes Hearing needs: Yes Vision needs: Yes Questionnaire PHQ-9 Over the last 2 weeks, how often have you been bothered by any of the following problems? 1. Little interest or pleasure in doing things: not at all 2. Feeling down, depressed, or hopeless: not at all 3. Trouble falling or staying asleep, or sleeping too much: not at all 4. Feeling tired or having little energy: not at all 5. Poor appetite or overeating: not at all 6. Feeling bad about yourself - or that you are a failure or have let yourself or your family down: not at all 7. Trouble concentrating on things, such as reading the newspaper or watching television: not at all 8. Moving or speaking so slowly that other people could have noticed. Or the opposite - being so fidgety or restless that you have been moving around a lot more than usual: not at all 9. Thoughts that you would be better off or of hurting yourself in some way: not at all Total score: 0 Depression Screening Interpretation: Negative Source: Developed by Drs. Jose Mahmood, Chauncey Santos and colleagues, with an educational yogesh from [employer]. Thrive Questionnaire Date Thrive assessed: 07/04/22 AUDIT C Alcohol Use Questionnaire (AUDIT-C) 1. How often do you have a drink containing alcohol?: Never 3. How often do you have six or more drinks on one occasion?: Never Total Score: 0 Score Reviewed/Action Taken: No OMAR-7 AMB Questionnaire OMAR-7 Date OMAR - 7 assessed: 07/04/22 Source: Developed by Adilene Tidwell Kurt Kroenke and colleagues, with an educational yogesh from [employer]. Physical exam (Primary Care) Vital Signs: Last Vital Signs Pulse 77 10/27/22 09:50 BP 116/64 10/27/22 09:50 Pulse Ox 97 10/27/22 09:50 Oxygen Delivery Method Room Air 10/27/22 09:50 BMI result Body Mass Index 27.4 Tobacco/Smoking Status: Tobacco use Status Tobacco use date assessed 04/04/22 10/27/22 09:53 Patient Tobacco Use Status Never used Tobacco 10/27/22 09:53 e-Cigarette/Vaping Use Never Used 10/27/22 09:53 PHQ-9: PHQ-9 Score PHQ-9: Total score 0 10/27/22 10:02 Depression Screening Interpretation: Negative Thrive Assessment: Date of Thrive Assessment Date Thrive assessed 07/04/22 10/27/22 09:53 Const General: alert; No acute distress Eyes Conjunctivae: conjunctivae normal Resp Auscultation: clear to auscultation bilaterally Cardio Rate: regular rate Rhythm: regular rhythm GI Inspection: Yes normal to inspection Back/Spine/Pelvis Back/spine/pelvis image: 1. Multiple hyperkeratotic slightly pigmented skin rash on the back 2. 3. 4. 5. 6. 7. Skin Other: People 1-2 cm hyperkeratotic skin rash on the back Extrem General: Yes normal to inspection and No edema Assessment and Plan Assessment & Plan (1) Coronary artery disease: Comment: LAD branch D 1 Code(s): I25.10 - Atherosclerotic heart disease of [place] coronary artery without angina pectoris Qualifiers: Coronary Disease-Associated Artery/Lesion type: [place] artery [place] vs. transplanted heart: [place] heart Associated angina: without angina Qualified Code(s): I25.10 - Atherosclerotic heart disease of [place] coronary [place] without angina pectoris Plan: Control the cholesterol, weight, blood pressure, diabetes (2) Hypercholesterolemia: Code(s): E78.00 - Pure hypercholesterolemia, unspecified Plan: Avoid fried foods, chicken skin, eggs, butter margarine, pastries and meat. Be it pork or beef they have a lot of cholesterol LDL goal of less than 70 patient on rosuvastatin and Zetia. Had a long discussion with the patient with regards the LDL test that we did in March that the LDL the lower the number the better it is patient is on 2 medications already for cholesterol. Discussed about diet (3) Pacemaker: Comment: 2010, syncope AV block symptomatic bradycardia January 2011 Code(s): Z95.0 - Presence of cardiac pacemaker Plan: Continue to follow-up with cardiology on a pacemaker (4) Actinic keratosis: Code(s): L57.0 - Actinic keratosis Plan: reassurance and advise to call for changes and will refer to dermatology (5) Peripheral vascular disease: Code(s): I73.9 - Peripheral vascular disease, unspecified Plan: When sitting down elevate the legs, exercise, and support stockings. Presently resolved Coding Level of Care Code Est Pt Level 4 (63294) Diagnoses Coronary artery disease I25.10 Coronary Disease-Associated Artery/Lesion type: [place] artery [place] vs. transplanted heart: [place] heart Associated angina: without angina Hypercholesterolemia E78.00 Pacemaker Z95.0 Actinic keratosis L57.0 Peripheral vascular disease I73.9 Additional Codes PHQ-9 - 60000 - PHQ-9 Billing: Y ([id number])
== END 2022-10-27 10:44 | disposition home or self-care (01) ==
PROVIDERS: PCP Internal Medicine; Visit Provider Internal Medicine
DX: I25.10 Atherosclerotic heart disease of native coronary artery without angina pectoris (principal); E78.00 Pure hypercholesterolemia, unspecified; Z95.0 Presence of cardiac pacemaker; I73.9 Peripheral vascular disease, unspecified; L57.0 Actinic keratosis
CPT/HCPCS: 99214

== ENCOUNTER 2022-11-01 06:30 | Outpatient (REF) | payer MEDICARE, MEDICAID, SELFPAY ==
[2022-11-01 08:00] LABS: Alanine Aminotransferase 13 U/L (0-31); Alkaline Phosphatase 84 U/L (39-117); Anion Gap 11 (12-20); Aspartate Amino Transferase 20 U/L (5-31); Bilirubin Total 0.5 mg/dL (0.0-1.0); Blood Urea Nitrogen 15 mg/dL (9-16); Calcium 9.7 mg/dL (8.4-10.2); Carbon Dioxide 25 mmol/L (22-29); Chloride 107 mmol/L (96-108); Cholesterol 202 mg/dL (<200); Estimated Glomerular Filt Rate > 60; Glucose Random 90 mg/dL (60-115); HDL Cholesterol 50 mg/dL (>40); LDL Cholesterol Calculated 137 mg/dL (<100); Potassium 4.3 mmol/L (3.3-5.1); Sodium 139 mmol/L (135-145); Total Protein 7.5 g/dL (6.5-8.0); Triglycerides 79 mg/dL (<150)
== END 2022-11-01 06:31 | disposition home or self-care (01) ==
LOC: HO.LAB 06:30
PROVIDERS: PCP Internal Medicine; Visit Provider Internal Medicine
DX: E78.00 Pure hypercholesterolemia, unspecified (principal)
CPT/HCPCS: 36415; 80053; 80061

== ENCOUNTER → 2022-11-13 12:46 | Outpatient (BNVA) | payer MEDICARE, MEDICAID, SELFPAY | PROVIDERS: PCP Internal Medicine; Referring Provider Internal Medicine; Visit Provider Internal Medicine | DX: Z45.018 Encounter for adjustment and management of other part of cardiac pacemaker (principal); I25.10 Atherosclerotic heart disease of native coronary artery without angina pectoris; I44.7 Left bundle-branch block, unspecified; Z95.0 Presence of cardiac pacemaker | CPT/HCPCS: 93280; 99212 ==

== ENCOUNTER 2022-11-13 12:47 | Outpatient (AMB) | payer MEDICARE, MEDICAID, SELFPAY ==
--- NOTE | 2022-11-13 13:00 | A.OFFVIS_ITS ---
Intake Vital Signs 11/13/22 13:02 Height 4 ft 10 in Weight 131 lb BMI 27.4 BP 110/60 Blood Pressure Location Lt brachial Position Sitting Pulse 71 Intake Visit Reasons: follow up Intake Note: follow up Lever Tender Required: No Allergies SEASONAL ALLERGIES Allergy (Mild, Uncoded 11/13/22 13:00) ITCHY EYES seasonal dust, pollen, etc. Allergy (Unknown, Uncoded 11/13/22 13:00) redness, coughing Medication List - Last Reconciled 11/13/22 by Amrit Musa MD aspirin (Kristie Low Dose Aspirin) 81 mg PO DAILY ezetimibe (Zetia) 10 mg PO DAILY rosuvastatin 40 mg PO DAILY HPI HPI Comments History of Present Illness Details Luna returns for follow-up regarding coronary disease and pacemaker. Overall, she states she feels fine. No specific complaints. She underwent pacemaker implantation in [place] in [place], around 2011 due to syncope. She also has history of coronary disease and drug-eluting stent to D1 branch of LAD in 2014. Overall, doing well. [facility] Medical History Coronary artery disease Dementia Exposure to COVID-19 virus Hypercholesterolemia Insomnia Osteoarthritis, knee Pacemaker Rheumatoid arthritis Surgical History History of hysterectomy Social History Housing: House Alcohol intake: never Patient Tobacco Use Status: Never used Tobacco e-Cigarette/Vaping Use: Never Used Second Hand Smoke Exposure: No Current occupational status: retired Cognitive needs: Yes Hearing needs: Yes Vision needs: Yes Review of Systems Const Denies weakness ENT Denies dizziness Card Denies chest pain, Denies chest pain with activity, Denies syncope, Denies rapid heart rate, Denies pedal edema, Denies edema, Denies leg edema, Denies lightheadedness, Denies palpitations, Denies dyspnea, Denies dyspnea on exertion and Denies orthopnea Resp Denies cough, Denies dyspnea and Denies dyspnea on exertion GI Denies hematochezia and Denies change in stool character Musc Denies abnormal gait, Denies muscle cramps, Denies muscle weakness, Denies numbness, Denies radiating pain into limb and Denies tingling Neuro Denies abnormal gait, Denies dizziness, Denies syncope, Denies numbness, Denies tingling and Denies weakness Endo Denies palpitations Physical Exam Vital Signs: Last Vital Signs Pulse 71 11/13/22 13:02 BP 110/60 11/13/22 13:02 BMI result Body Mass Index 27.4 Const General: comfortable and no acute distress Orientation/consciousness: patient oriented x3 HEENT Other: Unremarkable Head: Yes normal to inspection Neck Neck: Yes normal visual inspection Chest Chest palpation & inspection: normal inspection of the chest Resp Auscultation: clear to auscultation bilaterally Cardio Palpation: normal PMI Heart sounds: S1 normal heart sound present, S2 normal heart sound present, no gallops, no murmurs and no rubs GI Palpation (GI): Soft to palpation Back/Spine/Pelvis Other: unremarkable Skin General skin exam: no rashes or lesions noted Neuro General: patient oriented x3 Extrem General: Yes normal to inspection Psych Mental Status: mental status grossly normal Office Procedures Cardiac Device Check Cardiac Device Check Details: Pacemaker interrogated today. Programmed VDD-50/120. Battery status 4.5 years. Normal lead parameters. Both atrial and ventricular pacing less than 1%. Overall, normal device function. [id number] Cardiac Device Check, pacemaker dual lead Procedure code (CPT) selection complete Assessment & Plan Assessment & Plan (1) Coronary artery disease: Comment: LAD branch D 1 Code(s): I25.10 - Atherosclerotic heart disease of [place] coronary artery without angina pectoris Qualifiers: Associated angina: without angina Coronary Disease-Associated Artery/Lesion type: [place] artery [place] vs. transplanted heart: [place] heart Qualified Code(s): I25.10 - Atherosclerotic heart disease of [place] coronary artery without angina pectoris Plan: Per documentation, history of drug-eluting stent to D1 branch of LAD in 2015. Myocardial perfusion imaging study with normal perfusion. Echocardiogram with normal LVEF, 60-65% and basal inferior hypokinesis. Clinically, she does not have any angina. Continue aspirin, statins and Zetia. Cholesterol is on the higher side. At her age, probably not suitable for Repatha. As much able, dietary regulation and lifestyle changes. We discussed about this at length today. (2) Pacemaker: Comment: 2010, syncope AV block symptomatic bradycardia January 2011 Code(s): Z95.0 - Presence of cardiac pacemaker Plan: Checked today and with normal function. Battery status 4.5 years. (3) LBBB (left bundle branch block): Code(s): I44.7 - Left bundle-branch block, unspecified Plan: Chronic. Coding Level of Care Code Est Pt Level 4 (78429) Diagnoses Coronary artery disease involving [place] coronary artery of [place] heart without angina pectoris I25.10 Associated angina: without angina Coronary Disease-Associated Artery/Lesion type: [place] artery [place] vs. transplanted heart: [place] heart Pacemaker Z95.0 LBBB (left bundle branch block) I44.7 CPT Codes Cardiac Device Check - Cardiac Device 2: [id number] Cardiac Device Check, pacemaker dual lead ([id number])
[2022-11-13 13:02] VITALS: BP 110/60; PULSE 71; BMI 27.4
== END 2022-11-13 13:34 | disposition home or self-care (01) ==
PROVIDERS: PCP Internal Medicine; Referring Provider Internal Medicine; Visit Provider Internal Medicine
DX: I25.10 Atherosclerotic heart disease of native coronary artery without angina pectoris (principal); I44.7 Left bundle-branch block, unspecified; Z95.0 Presence of cardiac pacemaker
CPT/HCPCS: 93280; 99214

== ENCOUNTER 2023-02-12 09:47 | Outpatient (AMB) | payer MEDICARE, MEDICAID, SELFPAY ==
[2023-02-12 09:49] VITALS: BP 126/78; PULSE 70; O2SAT 100; BMI 27.6
--- NOTE | 2023-02-12 09:49 | MHC.PC.OV ---
Vital Signs 02/12/23 09:49 Height 4 ft 10 in Weight 132 lb 0.2 oz BMI 27.6 BP 126/78 Blood Pressure Location Lt brachial Position Sitting Pulse 70 Pulse Source Pulse Oximeter Pulse Oximetry (%) 100 Oxygen Delivery Method Room Air Intake Visit Reasons: Hypercholesterolemia, Underwriting Specialist Required: No Allergies SEASONAL ALLERGIES Allergy (Mild, Uncoded 02/12/23 09:51) ITCHY EYES seasonal dust, pollen, etc. Allergy (Unknown, Uncoded 02/12/23 09:51) redness, coughing Tobacco use date assessed: 02/12/23 Fall risk assessment: No Falls in past year Last assessed Fall Risk: 02/12/23 Dental Screening Dental Screen Date: 02/12/23 HPI Hypercholesterolemia, HPI Details 87-year-old overweight female with coronary artery disease with hypercholesterolemia pacemaker and peripheral vascular disease last seen in October 2022. Patient is here for follow-up. Review of the notes in October patient was seen by Cardiology patient underwent pacemaker implantation in [place] in [place] 2011 to to [facility] Medical History Coronary artery disease Dementia Exposure to COVID-19 virus Hypercholesterolemia Insomnia Osteoarthritis, knee Pacemaker Rheumatoid arthritis Surgical History History of hysterectomy Social History Housing: House Alcohol intake: never Patient Tobacco Use Status: Never used Tobacco e-Cigarette/Vaping Use: Never Used Second Hand Smoke Exposure: No Current occupational status: retired Cognitive needs: Yes Hearing needs: Yes Vision needs: Yes Questionnaire Thrive Questionnaire Date Thrive assessed: 07/04/22 AUDIT C Alcohol Use Questionnaire (AUDIT-C) 1. How often do you have a drink containing alcohol?: Never 3. How often do you have six or more drinks on one occasion?: Never Total Score: 0 Score Reviewed/Action Taken: No OMAR-7 AMB Questionnaire OMAR-7 Date OMAR - 7 assessed: 07/04/22 Source: Developed by Drs. Jose Mahmood, Adilene Rader, Chauncey Garcia and colleagues, with an educational yogesh from [employer]. Physical exam (Primary Care) Vital Signs: Last Vital Signs Pulse 70 02/12/23 09:49 BP 126/78 02/12/23 09:49 Pulse Ox 100 02/12/23 09:49 Oxygen Delivery Method Room Air 02/12/23 09:49 BMI result Body Mass Index 27.6 Tobacco/Smoking Status: Tobacco use Status Tobacco use date assessed 02/12/23 02/12/23 09:53 Patient Tobacco Use Status Never used Tobacco 02/12/23 09:53 e-Cigarette/Vaping Use Never Used 02/12/23 09:53 Thrive Assessment: Date of Thrive Assessment Date Thrive assessed 07/04/22 02/12/23 09:53 Const General: alert; No acute distress Eyes Conjunctivae: conjunctivae normal Resp Auscultation: clear to auscultation bilaterally Cardio Rate: regular rate Rhythm: regular rhythm GI Inspection: Yes normal to inspection Extrem General: Yes normal to inspection and No edema Office Procedures Flu Questionnaire Does the patient have a severe egg allergy?: No Does the patient have severe life threatening allergies?: No Does the patient have a fever or illness today?: No Has the patient ever had Guillain-Hesston Syndrome?: No Has the patient ever had any past reaction to a flu shot?: No Immunizations flu vacc [id number] 6mos up(PF) 60 mcg(15 mcgx4)/0.5 mL IM syringe Performing Provider: Jordon Nelson MD [facility] Administered by: TERE Orr on 02/12/23 10:24 Dose Route Admin Location Dispensed Lot Number Expiration Date NDC System Safety Engineer 0.5 mL IM Left Deltoid 0.5 mL [id number] 08/26/23 72931-782-54 [employer] VIS Given Date VIS Provided VIS Publication Date 02/12/23 Single Vaccine 20 Eligibility Eligibility Date Funding Source Not VFC Eligible 02/12/23 Private Assessment and Plan Assessment & Plan (1) Pacemaker: Comment: 2010, syncope AV block symptomatic bradycardia January 2011 Code(s): Z95.0 - Presence of cardiac pacemaker Plan: Patient follows up with Cardiology for pacemaker check (2) Coronary artery disease: Comment: LAD branch D 1 Code(s): I25.10 - Atherosclerotic heart disease of [place] coronary artery without angina pectoris Qualifiers: Associated angina: without angina Coronary Disease-Associated Artery/Lesion type: [place] artery [place] vs. transplanted heart: [place] heart Qualified Code(s): I25.10 - Atherosclerotic heart disease of [place] coronary artery without angina pectoris Plan: Control the cholesterol, weight, blood pressure LDL last tested October 2022 presently on Zetia and rosuvastatin. Patient is not a candidate for injectable and has just been advised diet. (3) Hypercholesterolemia: Code(s): E78.00 - Pure hypercholesterolemia, unspecified Plan: Avoid fried foods, chicken skin, eggs, butter margarine, pastries and meat. Be it pork or beef they have a lot of cholesterol LDL goal of less than 70 but patient's on rosuvastatin and Zetia already. Orders: Orders Complete Blood Count Auto Diff Today E78.00 - Pure hypercholesterolemia, unspecified Free T4 (Free Thyroxine) Today E78.00 - Pure hypercholesterolemia, unspecified Thyroid Stimulating Hormone Today E78.00 - Pure hypercholesterolemia, unspecified Vitamin D 25-OH Total Today E78.00 - Pure hypercholesterolemia, unspecified Ferritin Today E78.00 - Pure hypercholesterolemia, unspecified Influenza [id number] Immunization Today Z23 - Encounter for immunization Comprehensive Met. Panel Today E78.00 - Pure hypercholesterolemia, unspecified Vitamin B12 and Folate Today E78.00 - Pure hypercholesterolemia, unspecified Lipid Panel Today E78.00 - Pure hypercholesterolemia, unspecified IRON PROFILE Today E78.00 - Pure hypercholesterolemia, unspecified Reticulocyte Count Today E78.00 - Pure hypercholesterolemia, unspecified Coding Level of Care Code Est Pt Level 4 (83752) Diagnoses Pacemaker Z95.0 Coronary artery disease involving [place] coronary artery of [place] heart without angina pectoris I25.10 Associated angina: without angina Coronary Disease-Associated Artery/Lesion type: [place] artery [place] vs. transplanted heart: [place] heart Hypercholesterolemia E78.00
== END 2023-02-12 10:32 | disposition home or self-care (01) ==
PROVIDERS: PCP Internal Medicine; Visit Provider Internal Medicine
DX: Z95.0 Presence of cardiac pacemaker (principal); I25.10 Atherosclerotic heart disease of native coronary artery without angina pectoris; E78.00 Pure hypercholesterolemia, unspecified; Z23 Encounter for immunization
CPT/HCPCS: 90471; 90686; 99214

== ENCOUNTER 2023-04-02 06:12 | Outpatient (REF) | payer MEDICARE, MEDICAID, SELFPAY ==
[2023-04-02 06:43] LABS: MANUAL DIFF FLAG NO
[2023-04-02 07:46] LABS: Basophils Absolute Auto 0.1 X10*3/uL (0.0-0.2); Basophils Percent Auto 0.7 % (0-2); Eosinophils Absolute Auto 0.3 X10*3/uL (0.0-0.4); Hematocrit 40.3 % (37.0-47.0); Hemoglobin 12.8 g/dl (12.0-16.0); Imm Gran Abs Auto 0.02 X10*3/uL (0.00-0.03); Imm Gran Pct Auto 0.2 % (0.0-0.4); Immature Retic Fraction 15.7 % (3.0-15.9); Lymphocytes Absolute Auto 2.1 X10*3/uL (1.2-4.9); Lymphocytes Percent Auto 24.3 % (20-40); Mean Corpuscular HGB Conc 31.8 g/dl (31.0-35.0); Mean Corpuscular Volume 75.6 fL (80.0-98.0); Mean Platelet Volume 11.6 fL (9.4-12.3); Monocytes Absolute Auto 0.8 X10*3/uL (0.1-1.2); Monocytes Percent Auto 9.5 % (2-11); Neutrophils Absolute Auto 5.3 x10*3/uL (2.0-8.3); Neutrophils Percent Auto 62.3 % (45-73); Platelet Count 248 X10*3/uL (160-400); Red Blood Count 5.33 X10*6/uL (4.20-5.50); Red Cell Distribution Width 15.3 % (11.0-16.0); Retic HGB Equivalent 26.4 pg (30.0-35.0); Reticulocyte Percent 1.4 % (0.5-1.8); Reticulocytes Absolute 0.074 X10*6/uL (0.026-0.095); White Blood Count 8.6 X10*3/uL (4.8-10.8)
[2023-04-02 08:16] LABS: Alanine Aminotransferase 27 U/L (0-31); Albumin Level 3.9 g/dL (3.5-5.0); Alkaline Phosphatase 78 U/L (39-117); Anion Gap 11 (12-20); Aspartate Amino Transferase 25 U/L (5-31); Bilirubin Total 0.4 mg/dL (0.0-1.0); Blood Urea Nitrogen 16 mg/dL (9-16); Calcium 9.6 mg/dL (8.4-10.2); Carbon Dioxide 27 mmol/L (22-29); Chloride 105 mmol/L (96-108); Cholesterol 140 mg/dL (<200); Estimated Glomerular Filt Rate > 60; Glucose Random 82 mg/dL (60-115); HDL Cholesterol 49 mg/dL (>40); Iron 70 mcg/dL (30-160); LDL Cholesterol Calculated 77 mg/dL (<100); Percent Iron Saturation 27 % (15-50); Potassium 4.3 mmol/L (3.3-5.1); Sodium 139 mmol/L (135-145); Total Iron Binding Capacity 256 mcg/dL (228-428); Total Protein 7.6 g/dL (6.5-8.0); Triglycerides 71 mg/dL (<150); Unsaturated Iron Binding 186 ug/dL
[2023-04-02 08:37] LABS: Ferritin 148 ng/mL (10-250); Free T4 (Free Thyroxine) 0.81 ng/dL (0.71-1.85); Thyroid Stimulating Hormone 2.87 uIU/mL (0.32-4.0); Vitamin D 25-OH Total 8.7 ng/mL (>30)
[2023-04-02 08:42] LABS: Folate 6.5 ng/mL (> or = 4.0); Vitamin B12 417 pg/mL (200-900)
== END 2023-04-02 06:13 | disposition home or self-care (01) ==
LOC: HO.LAB 06:12
PROVIDERS: PCP Internal Medicine; Visit Provider Internal Medicine
DX: E78.00 Pure hypercholesterolemia, unspecified (principal)
CPT/HCPCS: 36415; 80053; 80061; 82306; 82607; 82728; 82746; 83540; 84439; 84443; 85025; 85045

== ENCOUNTER 2023-05-14 13:50 | Outpatient (AMB) | payer MEDICARE, MEDICAID, SELFPAY ==
--- NOTE | 2023-05-14 14:13 | MHC.OFFVIS ---
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 Allergy (Unknown, Uncoded 05/14/23 14:14) redness, coughing Medication List - Last Reconciled 05/14/23 by Amrit Musa MD aspirin (Kristie Low Dose Aspirin) 81 mg PO DAILY ezetimibe (Zetia) 10 mg PO DAILY rosuvastatin 40 mg PO DAILY HPI HPI Comments History of Present Illness Details Luna returns for follow-up regarding coronary disease and pacemaker. Overall, she states she feels fine. No specific complaints. She underwent pacemaker implantation in [place] in [place], around 2011 due to syncope. She also has history of coronary disease and drug-eluting stent to D1 branch of LAD in 2014. Since last seen, no specific complaints. No cardiac issues. Some memory concerns per accompanying person. [facility] Medical History Coronary artery disease Dementia Exposure to COVID-19 virus Hypercholesterolemia Insomnia Osteoarthritis, knee Pacemaker Rheumatoid arthritis Surgical History History of hysterectomy Social History Housing: House Alcohol intake: never Patient Tobacco Use Status: Never used Tobacco e-Cigarette/Vaping Use: Never Used Second Hand Smoke Exposure: No Current occupational status: retired Cognitive needs: Yes Hearing needs: Yes Vision needs: Yes Review of Systems Const Denies weakness ENT Denies dizziness Card Denies chest pain, Denies chest pain with activity, Denies syncope, Denies rapid heart rate, Denies pedal edema, Denies edema, Denies leg edema, Denies lightheadedness, Denies palpitations, Denies dyspnea on exertion and Denies orthopnea Resp Denies cough and Denies dyspnea on exertion GI Denies hematochezia and Denies change in stool character Musc Denies abnormal gait, Denies muscle cramps, Denies muscle weakness, Denies numbness, Denies radiating pain into limb and Denies tingling Neuro Denies abnormal gait, Denies dizziness, Denies syncope, Denies numbness, Denies tingling and Denies weakness Endo Denies palpitations Physical Exam Vital Signs: Last Vital Signs Pulse 78 05/14/23 14:14 BP 112/70 05/14/23 14:14 Const General: comfortable and no acute distress Orientation/consciousness: patient oriented x3 HEENT Other: Unremarkable Head: Yes normal to inspection Neck Neck: Yes normal visual inspection Chest Chest palpation & inspection: normal inspection of the chest Resp Auscultation: clear to auscultation bilaterally Cardio Palpation: normal PMI Heart sounds: S1 normal heart sound present, S2 normal heart sound present, no gallops, no murmurs and no rubs GI Palpation (GI): Soft to palpation Back/Spine/Pelvis Other: unremarkable Skin General skin exam: no rashes or lesions noted Neuro General: patient oriented x3 Extrem General: Yes normal to inspection Psych Mental Status: mental status grossly normal Office Procedures Cardiac Device Check Cardiac Device Check Details: Pacemaker interrogated today. Mode VDD, 50-120/Min. Battery status 4.5 years. Normal lead parameters. Atrial pacing 0%. Ventricular pacing less than 1%. Episode of transient NSVT noted November 2022. Overall, normal device function. [id number] Cardiac Device Check, pacemaker dual lead Procedure code (CPT) selection complete Assessment & Plan Assessment & Plan (1) Coronary artery disease: Comment: LAD branch D 1 Code(s): I25.10 - Atherosclerotic heart disease of [place] coronary artery without angina pectoris Qualifiers: Associated angina: without angina Coronary Disease-Associated Artery/Lesion type: [place] artery [place] vs. transplanted heart: [place] heart Qualified Code(s): I25.10 - Atherosclerotic heart disease of [place] coronary artery without angina pectoris Plan: Per documentation, history of drug-eluting stent to D1 branch of LAD in 2015. Myocardial perfusion imaging study with normal perfusion. Echocardiogram with normal LVEF, 60-65% and basal inferior hypokinesis. Clinically, she does not have any angina. Continue aspirin, statins and Zetia. Recent LDL 77 mg/dL. (2) Pacemaker: Code(s): Z95.0 - Presence of cardiac pacemaker Plan: Checked today and with normal function. Pacing rarely. Her pacemaker is not suitable for remote monitoring. (3) LBBB (left bundle branch block): Code(s): I44.7 - Left bundle-branch block, unspecified Plan: Chronic. Coding Level of Care Code Est Pt Level 3 (77323) Diagnoses Coronary artery disease involving [place] coronary artery of [place] heart without angina pectoris I25.10 Associated angina: without angina Coronary Disease-Associated Artery/Lesion type: [place] artery [place] vs. transplanted heart: [place] heart Pacemaker Z95.0 LBBB (left bundle branch block) I44.7 CPT Codes Cardiac Device Check - Cardiac Device 2: [id number] Cardiac Device Check, pacemaker dual lead ([id number])
[2023-05-14 14:14] VITALS: BP 112/70; PULSE 78
== END 2023-05-14 14:37 | disposition home or self-care (01) ==
PROVIDERS: PCP Internal Medicine; Visit Provider Internal Medicine
DX: I25.10 Atherosclerotic heart disease of native coronary artery without angina pectoris (principal); Z95.0 Presence of cardiac pacemaker; I44.7 Left bundle-branch block, unspecified
CPT/HCPCS: 93280; 99213

== ENCOUNTER → 2023-05-14 13:50 | Outpatient (BNVA) | payer MEDICARE, MEDICAID, SELFPAY | PROVIDERS: PCP Internal Medicine; Visit Provider Internal Medicine | DX: I44.7 Left bundle-branch block, unspecified (principal); I25.10 Atherosclerotic heart disease of native coronary artery without angina pectoris; Z95.0 Presence of cardiac pacemaker | CPT/HCPCS: 93280; 99212 ==

== ENCOUNTER 2023-05-16 08:57 | Outpatient (AMB) | payer MEDICARE, MEDICAID, SELFPAY ==
[2023-05-16 08:58] VITALS: BP 114/70; PULSE 69; O2SAT 98; BMI 27.0
--- NOTE | 2023-05-16 08:58 | A.OFFPC_ITS ---
Vital Signs 05/16/23 08:58 Height 4 ft 10 in Weight 129 lb BMI 27.0 BP 114/70 Blood Pressure Location Lt brachial Position Sitting Pulse 69 Pulse Source Pulse Oximeter Pulse Oximetry (%) 98 Oxygen Delivery Method Room Air Intake Visit Reasons: Coronary artery disease Shrimp Header Required: No Allergies SEASONAL ALLERGIES Allergy (Mild, Uncoded 05/16/23 08:58) ITCHY EYES seasonal dust, pollen, etc. Allergy (Unknown, Uncoded 05/16/23 08:58) redness, coughing Medication List - Last Reconciled 05/16/23 by Jordon Nelson MD aspirin (Kristie Low Dose Aspirin) 81 mg PO DAILY cholecalciferol (vitamin D3) 50 mcg PO DAILY 90 days ezetimibe (Zetia) 10 mg PO DAILY fexofenadine (Manisha Allergy) 180 mg PO DAILY rosuvastatin 40 mg PO DAILY Tobacco use date assessed: 05/16/23 Fall risk assessment: No Falls in past year Last assessed Fall Risk: 05/16/23 Dental Screening Dental Screen Date: 05/16/23 HPI Coronary artery disease HPI Details 87-year-old overweight female with coron isidra artery disease hypercholesterolemia and has a pacemaker coming in for follow-up. Last seen in January 2023. Patient's bone density is due next month. Patient does follow- up with cardiology April 2023 last seen pacemaker implantation 2011 to syncope drug-eluting stent LAD 2014 continue with aspirin statin Zetia. [facility] Medical History Coronary artery disease Dementia Exposure to COVID-19 virus Hypercholesterolemia Insomnia Osteoarthritis, knee Pacemaker Rheumatoid arthritis Surgical History History of hysterectomy Social History Housing: House Alcohol intake: never Patient Tobacco Use Status: Never used Tobacco e-Cigarette/Vaping Use: Never Used Second Hand Smoke Exposure: No Current occupational status: retired Cognitive needs: Yes Hearing needs: Yes Vision needs: Yes Questionnaire Thrive Questionnaire Date Thrive assessed: 05/16/23 I am a: Patient What is your living situation today?: I have a steady place to live Within the past 12 months, did the food you bought not last and you didn't have the money to get more?: Never true Within the past 12 months, did you worry whether your food would run out before you got money to buy more?: Never true Do you have trouble paying for medicines?: No Do you have trouble getting transportation to medical appointments?: No Do you have trouble paying your heating and electricity bill?: No Do you have trouble taking care of your child, family member or friend?: No Do you have trouble with day-to-day activities such as bathing, preparing meals, shopping, managing finances, etc.?: No Are you currently unemployed and looking for a job?: No Are you interested in more education?: No Please select the resources that you would like help with: None THRIVE Score: 0 AUDIT C Alcohol Use Questionnaire (AUDIT-C) 1. How often do you have a drink containing alcohol?: Never 3. How often do you have six or more drinks on one occasion?: Never Total Score: 0 Score Reviewed/Action Taken: No OMAR-7 AMB Questionnaire OMAR-7 Date OMAR - 7 assessed: 05/16/23 Source: Developed by Drs. Jose Mahmood, Adilene Rader, Chauncey Garcia and colleagues, with an educational yogesh from [employer]. Physical exam (Primary Care) Vital Signs: Last Vital Signs Pulse 69 05/16/23 08:58 BP 114/70 05/16/23 08:58 Pulse Ox 98 05/16/23 08:58 Oxygen Delivery Method Room Air 05/16/23 08:58 BMI result Body Mass Index 27.0 Tobacco/Smoking Status: Tobacco use Status Tobacco use date assessed 05/16/23 05/16/23 08:59 Patient Tobacco Use Status Never used Tobacco 05/16/23 08:59 e-Cigarette/Vaping Use Never Used 05/16/23 08:59 Thrive Assessment: Date of Thrive Assessment Date Thrive assessed 05/16/23 05/16/23 08:59 Const General: alert; No acute distress Eyes Conjunctivae: conjunctivae normal Resp Auscultation: clear to auscultation bilaterally Cardio Rate: regular rate Rhythm: regular rhythm GI Inspection: Yes normal to inspection Extrem General: Yes normal to inspection and No edema Assessment and Plan Assessment & Plan (1) Hypercholesterolemia: Code(s): E78.00 - Pure hypercholesterolemia, unspecified Plan: Avoid fried foods, chicken skin, eggs, butter margarine, pastries and meat. Be it pork or beef they have a lot of cholesterol LDL goal of less than 70 and triglyceride of less than 150. Patient on rosuvastatin and Zetia (2) Coronary artery disease: Comment: LAD branch D 1 Code(s): I25.10 - Atherosclerotic heart disease of [place] coronary artery without angina pectoris Qualifiers: Coronary Disease-Associated Artery/Lesion type: [place] artery [place] vs. transplanted heart: [place] heart Associated angina: without angina Qualified Code(s): I25.10 - Atherosclerotic heart disease of [place] coronary artery without angina pectoris Plan: Control the cholesterol, weight, blood pressure, diabetes continue with aspirin 81 mg once a day (3) Pacemaker: Code(s): Z95.0 - Presence of cardiac pacemaker Plan: Patient continues to follow-up cardiology and checked for the pacemaker. (4) Osteopenia: Code(s): M85.80 - Other specified disorders of bone density and structure, unspecified site Orders: Orders XR DEXA axial skeleton Today M81.0 - Age-related osteoporosis without current pathological fracture, M85.80 - Other specified disorders of bone density and structure, unspecified site Medications: New cholecalciferol (vitamin D3) 50 mcg PO DAILY 90 caps 3RF 90 days E55.9 - Vitamin D deficiency, unspecified Refilled fexofenadine (Manisha Allergy) 180 mg PO DAILY 90 tabs 1RF J30.2 - Other seasonal allergic rhinitis Coding Level of Care Code Est Pt Level 4 (84904) Diagnoses Hypercholesterolemia E78.00 Coronary artery disease involving [place] coronary artery of [place] heart without angina pectoris I25.10 Coronary Disease-Associated Artery/Lesion type: [place] artery [place] vs. transplanted heart: [place] heart Associated angina: without angina Pacemaker Z95.0 Osteopenia M85.80
== END 2023-05-16 10:17 | disposition home or self-care (01) ==
PROVIDERS: PCP Internal Medicine; Visit Provider Internal Medicine
DX: E78.00 Pure hypercholesterolemia, unspecified (principal); I25.10 Atherosclerotic heart disease of native coronary artery without angina pectoris; Z95.0 Presence of cardiac pacemaker; M85.80 Other specified disorders of bone density and structure, unspecified site
CPT/HCPCS: 99214

== ENCOUNTER 2023-06-20 10:27 | Outpatient (REF) | payer MEDICARE, MEDICAID, SELFPAY ==
--- NOTE | ~2023-06-20 | MM_ITS ---
EXAMINATION: BONE DENSITOMETRY CLINICAL INDICATION: Age-related osteoporosis without current pathological fracture. COMPARISON: Baseline BD dated 06/17/2021. TECHNIQUE: Using a [employer] DXA System (software version: 13.1) manufactured by [employer], dual-energy x-ray absorptiometry was performed of the lumbar spine and left hip. The images are of good technical quality. Summary results are attached. FINDINGS: LEFT FEMUR, NECK: Current: BMD 0.761 g/cm2, Z-score 0.8, T-score -2.0, osteopenia. Baseline: BMD 0.750 g/cm2. LEFT FEMUR, TOTAL: Current: BMD 0.738 g/cm2, Z-score 0.6, T-score -2.1, osteopenia, 0.8% decrease from baseline (<5% change is not significant). Baseline: BMD 0.744 g/cm2. AP SPINE L1-L4: Current: BMD 1.120 g/cm2, Z-score 1.8, T-score -0.5, normal, 0.9% decrease from baseline (<5% change is not significant). Baseline: BMD 1.130 g/cm2. IDENTIFIED RISK FACTORS: Rheumatoid arthritis, dementia, bilateral ovariectomy, hysterectomy, menopause. HISTORY OF FRACTURE: None listed. MEDICATIONS: Vitamin D, multivitamin. MM/XR DEXA axial skeleton IMPRESSION: 1. DIAGNOSIS: Osteopenia based on the lowest T-score value of -2.1 in the total femur applying World Health Organization criteria. 2. 10-YEAR FRACTURE RISK PREDICTION, FRAX: Major osteoporotic fracture (clinical spine, forearm, hip or shoulder) 17.5%. Hip fracture 6.2%. 3. Treatment Recommendations: NOF guidelines recommend consideration for treatment in postmenopausal women and men age 50 and older presenting with the following: -A hip or vertebral (clinical or morphometric) fracture. -T-score less than or equal to -2.5 at the femoral neck or spine after appropriate evaluation to exclude secondary causes. -Low bone mass at the hip or spine and a 10-year fracture probability by FRAX of greater than or equal to 3% for hip fracture or greater than or equal to 20% for major osteoporotic fracture based on the [place] adapted WHO algorithm. 4. Other Recommendations: All treatment decisions require clinical judgment and consideration of individual patient factors, including patient preferences, comorbidities, previous drug use, risk factors not captured in the FRAX model (e.g. frailty, falls, vitamin D deficiency, increased bone turnover, interval significant decline in bone density) and possible under or overestimation of fracture risk by FRAX. Additional medical evaluation for secondary cause of low bone mineral density may be appropriate. FUTURE SCAN RECOMMENDATION: People with diagnosed cases of osteoporosis or at high risk for fracture should have regular bone mineral density tests. For patients eligible for Medicare, routine testing is allowed once every 2 years. The testing frequency can be increased to one year for patients who have rapidly progressing disease, those who are receiving or discontinuing medical therapy to restore bone mass, or have additional risk factors.
== END 2023-06-20 10:28 | disposition home or self-care (01) ==
LOC: HO.MAMMO 10:27
PROVIDERS: PCP Internal Medicine; Visit Provider Internal Medicine
DX: Z13.820 Encounter for screening for osteoporosis (principal); Z78.0 Asymptomatic menopausal state; M81.0 Age-related osteoporosis without current pathological fracture; M85.80 Other specified disorders of bone density and structure, unspecified site
CPT/HCPCS: 77080

== ENCOUNTER 2023-07-10 12:25 | Outpatient (AMB) | payer MEDICARE, MEDICAID, SELFPAY ==
--- NOTE | 2023-07-10 12:30 | A.OFFPC_ITS ---
Intake Visit Reasons: SWV [id number] Allergies SEASONAL ALLERGIES Allergy (Mild, Uncoded 05/16/23 08:58) ITCHY EYES seasonal dust, pollen, etc. Allergy (Unknown, Uncoded 05/16/23 08:58) redness, coughing Tobacco use date assessed: 05/16/23 Dental Screening Dental Screen Date: 05/16/23 [facility] Medical History Coronary artery disease Dementia Exposure to COVID-19 virus Hypercholesterolemia Insomnia Osteoarthritis, knee Pacemaker Rheumatoid arthritis Surgical History History of hysterectomy Social History Housing: House Alcohol intake: never Patient Tobacco Use Status: Never used Tobacco e-Cigarette/Vaping Use: Never Used Second Hand Smoke Exposure: No Current occupational status: retired Cognitive needs: Yes Hearing needs: Yes Vision needs: Yes Questionnaire Thrive Questionnaire Date Thrive assessed: 05/16/23 OMAR-7 AMB Questionnaire OMAR-7 Date OMAR - 7 assessed: 05/16/23 Source: Developed by Drs. Jose Mahmood, Adilene Rader, Chauncey Garcia and colleagues, with an educational yogesh from [employer]. Physical exam (Primary Care) Tobacco/Smoking Status: Tobacco use Status Tobacco use date assessed 05/16/23 05/16/23 08:59 Patient Tobacco Use Status Never used Tobacco 05/16/23 08:59 e-Cigarette/Vaping Use Never Used 05/16/23 08:59 Thrive Assessment: Date of Thrive Assessment Date Thrive assessed 05/16/23 05/16/23 08:59 Coding
[2023-07-10 12:31] VITALS: BP 108/62; PULSE 65; O2SAT 97; BMI 27.2
--- NOTE | 2023-07-10 12:31 | A.OFFVIS_ITS ---
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 Allergy (Unknown, Uncoded 07/10/23 12:31) redness, coughing HPI SWV G0439 HPI Details 87-year-old overweight female with coron isidra artery disease hypercholesterolemia with the pacemaker coming in for an annual well visit last seen in April 2023 bone density is up-to-date May 2023 showing osteopenia no change [facility] Medical History Coronary artery disease Dementia Exposure to COVID-19 virus Hypercholesterolemia Insomnia Osteoarthritis, knee Pacemaker Rheumatoid arthritis Surgical History History of hysterectomy Social History Housing: House Alcohol intake: never Patient Tobacco Use Status: Never used Tobacco e-Cigarette/Vaping Use: Never Used Second Hand Smoke Exposure: No Current occupational status: retired Cognitive needs: Yes Hearing needs: Yes Vision needs: Yes Questionnaire Medicare Wellness Checkup What is your age?: 79 or older What gender do you identify with?: female During the past 4 weeks, how much have you been bothered by emotional problems such as feeling anxious, depressed, irritable, sad or downhearted, and blue?: not at all During the past 4 weeks, has your physical & emotional health limited your social activities with family, friends, neighbors, or groups?: moderately During the past 4 weeks, how much bodily pain have you generally had?: severe pain During the past 4 weeks, was someone available to help you if you needed & wanted help?: yes, as much as I wanted During the past 4 weeks, what was the hardest physical activity you could do for at least 2 minutes?: very heavy Can you get to places out of walking distance without help? (For eg., can you travel alone on buses, taxis or drive your car?): No Can you go shopping for groceries or clothes without someone's help?: No Can you prepare your own meals?: No Can you do your housework without help?: No Because of any health problems, do you need the help of another person with your personal care needs such as eating, bathing, dressing or getting around the house?: Yes During the past 4 weeks, how would you rate your health in general?: fair During the past 4 weeks how have things been going for you?: good & bad parts about equal Are you having difficulties driving your car?: not applicable, I don't use a car Do you always fasten your seat belt when you are in a car?: yes, usually During past 4 weeks, have you been bothered by the following: never: Falling or dizzy when standing up, Sexual problems? and Trouble eating well?, seldom: Problems using the telephone?, sometimes: Teeth or denture problems? and often: Tiredness or fatigue? Have you fallen 2 or more times in the past year?: No Are you afraid of falling?: Yes Are you a smoker?: no During the past 4 weeks, how many drinks of wine, beer, or other alcoholic beverages did you have?: 1 drink or less per week Do you exercise for about 20 minutes 3 or more times a week?: yes, some of the time Have you been given information to help with the following?: no: Hazards in your house that might hurt you? and no: Keeping track of your medications? How often do you have trouble taking medicines the way you have been told to take them?: I always take medicine as prescribed How confident are you that you can control & manage most of your health problems?: not very confident What is your race?: White PHQ-9 Over the last 2 weeks, how often have you been bothered by any of the following problems? 1. Little interest or pleasure in doing things: not at all 2. Feeling down, depressed, or hopeless: not at all 3. Trouble falling or staying asleep, or sleeping too much: not at all 4. Feeling tired or having little energy: not at all 5. Poor appetite or overeating: not at all 6. Feeling bad about yourself - or that you are a failure or have let yourself or your family down: not at all 7. Trouble concentrating on things, such as reading the newspaper or watching television: not at all 8. Moving or speaking so slowly that other people could have noticed. Or the opposite - being so fidgety or restless that you have been moving around a lot more than usual: not at all 9. Thoughts that you would be better off or of hurting yourself in some way: not at all Total score: 0 Depression Screening Interpretation: Negative Depression Screening Done: Yes Source: Developed by Drs. Jose Mahmood, Adilene Rader, Chauncey Garcia and colleagues, with an educational yogesh from [employer]. Review of Systems Const Denies poor appetite and Denies weakness Eyes Denies no additional complaints ENT Reports Normal hearing present, Denies dizziness, Denies nasal congestion, Denies tinnitus and Denies sore throat Card Denies chest pain, Denies syncope, Denies rapid heart rate and Denies dyspnea Resp Denies cough and Denies dyspnea GI Denies change in stool character, Reports constipation, Denies diarrhea, Denies nausea and Denies vomiting Denies urinary frequency, Denies difficulty voiding and Denies dysuria Neuro Reports Normal hearing present, Denies confusion, Denies dizziness, Denies syncope and Denies weakness Psych Denies confusion Physical Exam Vital Signs: Last Vital Signs Pulse 65 07/10/23 12:31 BP 108/62 07/10/23 12:31 Pulse Ox 97 07/10/23 12:31 Oxygen Delivery Method Room Air 07/10/23 12:31 BMI result Body Mass Index 27.2 Const General: No confusion Orientation/consciousness: No confusion HEENT Head: Yes normocephalic Ears: external ears normal and TM's normal bilaterally Face and sinus: Yes normal facial exam Mouth: moist mucous membranes Throat: Yes tonsils normal Eyes Conjunctivae: conjunctivae normal Pupils: Equal, round and reactive pupils present and Pupil accommodation reflex normal Direct Ophthalmoscopy: normal light reflex Neck Neck: No lymphadenopathy Thyroid: Thyroid normal Chest Chest palpation & inspection: normal inspection of the chest Resp Effort & Inspection: normal respiratory effort and no audible wheezes Auscultation: clear to auscultation bilaterally, no crackles, no wheezes and lung sounds not diminished Cardio Rate: regular rate Rhythm: regular rhythm Peripheral pulses: radial pulses present and dorsalis pedis present GI Palpation (GI): no masses Auscultation: normal bowel sounds and normoactive bowel sounds Rectal Exam - Female: deferred Skin General skin exam: no rashes or lesions noted Rashes: no rashes Neuro General: No confusion Cranial nerves: Yes Equal, round and reactive pupils present and Yes Normal hearing present Cognition (Neuro): normal cognition Gait exam (Neuro): Normal gait present Motor exam (neuro): 5/5 motor strength present throughout Deep tendon reflexes (DTR's): Right brachioradialis reflex intensity grade: 2+, Left brachioradialis reflex intensity grade: 2+, Right patellar reflex intensity grade: 2+ and Left patellar reflex intensity grade: 2+ Extrem General: No edema Assessment & Plan Assessment & Plan (1) Medicare annual wellness visit, subsequent: Code(s): Z00.00 - Encounter for general adult medical examination without abnormal findings Plan: Keep active, adequate sleep, eat healthy, keep well hydrated. (2) Coronary artery disease: Comment: LAD branch D 1 Code(s): I25.10 - Atherosclerotic heart disease of [place] coronary artery without angina pectoris Qualifiers: Associated angina: without angina Coronary Disease-Associated Artery/Lesion type: [place] artery [place] vs. transplanted heart: [place] heart Qualified Code(s): I25.10 - Atherosclerotic heart disease of [place] coronary artery without angina pectoris Plan: Control the cholesterol, weight, blood pressure presently on aspirin 81 mg once a day (3) Hypercholesterolemia: Code(s): E78.00 - Pure hypercholesterolemia, unspecified Plan: Avoid fried foods, chicken skin, eggs, butter margarine, pastries and meat. Be it pork or beef they have a lot of cholesterol presently on rosuvastatin 40 mg once a day and Zetia 10 mg once a day LDL goal of less than 70 and triglyceride of less than 150. (4) Rheumatoid arthritis: Code(s): M06.9 - Rheumatoid arthritis, unspecified Qualifiers: Rheumatoid arthritis location: multiple sites Rheumatoid factor presence: without rheumatoid factor Qualified Code(s): M06.09 - Rheumatoid arthritis without rheumatoid factor, multiple sites Plan: Stable (5) Pacemaker: Code(s): Z95.0 - Presence of cardiac pacemaker Plan: Continue to follow up with Cardiology (6) Osteopenia: Comment: May 2023 Code(s): M85.80 - Other specified disorders of bone density and structure, unspecified site Plan: Bone density stable vitamin-D and calcium rich foods. And keep active (7) Impacted cerumen of both ears: Code(s): H61.23 - Impacted cerumen, bilateral Plan: will need irrigation Quality Reporting (2019) Depression/Bipolar (159/160/161/177) PHQ-9: Total score: 0 Coding Level of Care Code Medicare Subsequent (G0439) Diagnoses Medicare annual wellness visit, subsequent Z00.00 Coronary artery disease involving [place] coronary artery of [place] heart without angina pectoris I25.10 Associated angina: without angina Coronary Disease-Associated Artery/Lesion type: [place] artery [place] vs. transplanted heart: [place] heart Hypercholesterolemia E78.00 Rheumatoid arthritis of multiple sites with negative rheumatoid factor M06.09 Rheumatoid arthritis location: multiple sites Rheumatoid factor presence: without rheumatoid factor Pacemaker Z95.0 Osteopenia M85.80 Impacted cerumen of both ears H61.23 Additional Codes PHQ-9 - 20856 - PHQ-9 Billing: ([id number])
== END 2023-07-10 13:05 | disposition home or self-care (01) ==
PROVIDERS: Visit Provider Internal Medicine
DX: Z00.00 Encounter for general adult medical examination without abnormal findings (principal); M06.09 Rheumatoid arthritis without rheumatoid factor, multiple sites; I25.10 Atherosclerotic heart disease of native coronary artery without angina pectoris; E78.00 Pure hypercholesterolemia, unspecified; Z95.0 Presence of cardiac pacemaker; M85.80 Other specified disorders of bone density and structure, unspecified site; H61.23 Impacted cerumen, bilateral
CPT/HCPCS: G0439

== ENCOUNTER 2023-11-14 08:30 | Outpatient (AMB) | payer MEDICARE, MEDICAID, SELFPAY ==
--- NOTE | 2023-11-14 08:35 | A.OFFPC_ITS ---
Vital Signs 11/14/23 08:36 Height 4 ft 10 in Weight 121 lb BMI 25.3 BP 122/62 Blood Pressure Location Lt brachial Position Sitting Pulse 69 Pulse Source Pulse Oximeter Pulse Oximetry (%) 95 Oxygen Delivery Method Room Air Intake Visit Reasons: 6 Month Follow Up Custom Shoemaker Required: No Allergies SEASONAL ALLERGIES Allergy (Mild, Uncoded 11/14/23 08:37) ITCHY EYES seasonal dust, pollen, etc. Allergy (Unknown, Uncoded 11/14/23 08:37) redness, coughing Tobacco use date assessed: 05/16/23 Fall risk assessment: No Falls in past year Last assessed Fall Risk: 11/14/23 Dental Screening Dental Screen Date: 05/16/23 HPI 6 Month Follow Up HPI Details 88-year-old female with coronary artery disease hypercholesterolemia rheumatoid arthritis osteopenia coming in for follow-up. Last seen for annual wellness in June 2023. Patient is up-to-date with bone density in May 2023. HAS BEEN VERY PICKY WITH HER DIET and was told that if it is left over she does not eat it. Also problems with taking a bath that it seems like it is harder to encourage her to take a bath. Discussed with the patient to eat healthy and to take a bath. Otherwise no chest pains no shortness a breath no bowel bladder symptoms. [facility] Medical History Coronary artery disease Dementia Exposure to COVID-19 virus Hypercholesterolemia Insomnia Osteoarthritis, knee Pacemaker Rheumatoid arthritis Surgical History History of hysterectomy Social History Housing: House Alcohol intake: never Patient Tobacco Use Status: Never used Tobacco Tobacco use type: Cigarette e-Cigarette/Vaping Use: Never Used Second Hand Smoke Exposure: No Current occupational status: retired Cognitive needs: Yes Hearing needs: Yes Vision needs: Yes Questionnaire PHQ-9 Over the last 2 weeks, how often have you been bothered by any of the following problems? 1. Little interest or pleasure in doing things: not at all 2. Feeling down, depressed, or hopeless: not at all 3. Trouble falling or staying asleep, or sleeping too much: not at all 4. Feeling tired or having little energy: not at all 5. Poor appetite or overeating: not at all 6. Feeling bad about yourself - or that you are a failure or have let yourself or your family down: not at all 7. Trouble concentrating on things, such as reading the newspaper or watching television: not at all 8. Moving or speaking so slowly that other people could have noticed. Or the opposite - being so fidgety or restless that you have been moving around a lot more than usual: not at all 9. Thoughts that you would be better off or of hurting yourself in some way: not at all Total score: 0 Depression Screening Interpretation: Negative Depression Screening Done: Yes Source: Developed by Drs. Jose Mahmood, Adilene Rader, Chauncey Garcia and colleagues, with an educational yogesh from [employer]. Thrive Questionnaire Date Thrive assessed: 05/16/23 Are you currently unemployed and looking for a job?: Yes AUDIT C Alcohol Use Questionnaire (AUDIT-C) 1. How often do you have a drink containing alcohol?: Never 3. How often do you have six or more drinks on one occasion?: Never Total Score: 0 Score Reviewed/Action Taken: No OMAR-7 AMB Questionnaire OMAR-7 Date OMAR - 7 assessed: 05/16/23 Source: Developed by Drs. Jose Mahmood, Adilene Rader, Chauncey Garcia and colleagues, with an educational yogesh from [employer]. Physical exam (Primary Care) Vital Signs: Last Vital Signs Pulse 69 11/14/23 08:36 BP 122/62 11/14/23 08:36 Pulse Ox 95 11/14/23 08:36 Oxygen Delivery Method Room Air 11/14/23 08:36 BMI result Body Mass Index 25.3 Tobacco/Smoking Status: Tobacco use Status Tobacco use date assessed 05/16/23 05/16/23 08:59 Patient Tobacco Use Status Never used Tobacco 05/16/23 08:59 e-Cigarette/Vaping Use Never Used 05/16/23 08:59 Depression Screening Interpretation: Negative Thrive Assessment: Date of Thrive Assessment Date Thrive assessed 05/16/23 05/16/23 08:59 Const General: alert; No acute distress Eyes Conjunctivae: conjunctivae normal Resp Auscultation: clear to auscultation bilaterally Cardio Rate: regular rate Rhythm: regular rhythm GI Inspection: Yes normal to inspection Extrem General: Yes normal to inspection and No edema Assessment and Plan Assessment & Plan (1) Coronary artery disease: Comment: LAD branch D 1 Code(s): I25.10 - Atherosclerotic heart disease of [place] coronary artery without angina pectoris Qualifiers: Associated angina: without angina Coronary Disease-Associated Artery/Lesion type: [place] artery [place] vs. transplanted heart: [place] heart Qualified Code(s): I25.10 - Atherosclerotic heart disease of [place] coronary [place] without angina pectoris Plan: Control the cholesterol, weight, blood pressure, on aspirin (2) Rheumatoid arthritis: Code(s): M06.9 - Rheumatoid arthritis, unspecified Qualifiers: Rheumatoid arthritis location: multiple sites Rheumatoid factor presence: without rheumatoid factor Qualified Code(s): M06.09 - Rheumatoid arthritis without rheumatoid factor, multiple sites Plan: Stable (3) Hypercholesterolemia: Code(s): E78.00 - Pure hypercholesterolemia, unspecified Plan: Avoid fried foods, chicken skin, eggs, butter margarine, pastries and meat. Be it pork or beef they have a lot of cholesterol LDL goal of less than 70 and triglyceride of less than 150 on rosuvastatin 40 mg once a day and Zetia 10 mg once a day. Orders: Orders Complete Blood Count Auto Diff 5 Months I25.10 - Atherosclerotic heart disease of [place] coronary artery without angina pectoris Free T4 (Free Thyroxine) 5 Months I25.10 - Atherosclerotic heart disease of [place] coronary artery without angina pectoris Lipid Panel 5 Months E78.00 - Pure hypercholesterolemia, unspecified, I25.10 - Atherosclerotic heart disease of [place] coronary artery without angina pectoris Comprehensive Met. Panel 5 Months I25.10 - Atherosclerotic heart disease of [place] coronary artery without angina pectoris Thyroid Stimulating Hormone 5 Months I25.10 - Atherosclerotic heart disease of [place] coronary artery without angina pectoris Vitamin B12 and Folate 5 Months I25.10 - Atherosclerotic heart disease of [place] coronary artery without angina pectoris Vitamin D 25-OH Total 5 Months I25.10 - Atherosclerotic heart disease of [place] coronary artery without angina pectoris Coding Level of Care Code Est Pt Level 4 (05887) Diagnoses Coronary artery disease involving [place] coronary artery of [place] heart without angina pectoris I25.10 Associated angina: without angina Coronary Disease-Associated Artery/Lesion type: [place] artery [place] vs. transplanted heart: [place] heart Rheumatoid arthritis of multiple sites with negative rheumatoid factor M06.09 Rheumatoid arthritis location: multiple sites Rheumatoid factor presence: without rheumatoid factor Hypercholesterolemia E78.00 Additional Codes PHQ-9 - 05302 - PHQ-9 Billing: ([id number])
[2023-11-14 08:36] VITALS: BP 122/62; PULSE 69; O2SAT 95; BMI 25.3
== END 2023-11-14 08:59 | disposition home or self-care (01) ==
PROVIDERS: PCP Internal Medicine; Visit Provider Internal Medicine
DX: I25.10 Atherosclerotic heart disease of native coronary artery without angina pectoris (principal); M06.09 Rheumatoid arthritis without rheumatoid factor, multiple sites; E78.00 Pure hypercholesterolemia, unspecified

== ENCOUNTER → 2023-11-14 08:30 | Outpatient (BNVA) | payer MEDICARE, MEDICAID, SELFPAY | PROVIDERS: PCP Internal Medicine; Visit Provider Internal Medicine | DX: I25.10 Atherosclerotic heart disease of native coronary artery without angina pectoris (principal); E78.00 Pure hypercholesterolemia, unspecified; M06.09 Rheumatoid arthritis without rheumatoid factor, multiple sites | CPT/HCPCS: 99212 ==

== ENCOUNTER 2024-05-12 11:58 | Outpatient (AMB) | payer MEDICARE, MEDICAID, SELFPAY ==
[2024-05-12 12:44] VITALS: BP 118/68; PULSE 71; BMI 25.5
--- NOTE | 2024-05-12 12:44 | MHC.OFFVIS ---
Vital Signs 05/12/24 12:44 Height 4 ft 10 in Weight 122 lb BMI 25.5 BP 118/68 Blood Pressure Location Lt brachial Position Sitting Pulse 71 Pulse Source Monitor Intake Visit Reasons: 1 yr w/ device ck Allergies SEASONAL ALLERGIES Allergy (Mild, Uncoded 11/14/23 08:37) ITCHY EYES seasonal dust, pollen, etc. Allergy (Unknown, Uncoded 11/14/23 08:37) redness, coughing Medication List - Last Reconciled 05/12/24 by Amrit Musa MD aspirin (Kristie Low Dose Aspirin) 81 mg PO DAILY cholecalciferol (vitamin D3) 50 mcg PO DAILY 90 days ezetimibe 10 mg PO DAILY fexofenadine (Manisha Allergy) 180 mg PO DAILY rosuvastatin 40 mg PO DAILY HPI Comments Details: Luna returns for follow-up regarding coronary disease and pacemaker. She underwent pacemaker implantation in [place] in [place], around 2011 due to syncope. She also has history of coronary disease and drug-eluting stent to D1 branch of LAD in 2014. Since last seen, no specific complaints. No cardiac issues. Some memory concerns per accompanying person. [facility] Medical History Coronary artery disease Rheumatoid arthritis Dementia Osteoarthritis, knee Hypercholesterolemia Insomnia Pacemaker Exposure to COVID-19 virus Surgical History History of hysterectomy Family History (Updated 05/12/24 @ 12:52 by Amrit Musa MD) Unknown No problems noted. Social History Housing: House Alcohol intake: never Patient Tobacco Use Status: Never used Tobacco Tobacco use type: Cigarette e-Cigarette/Vaping Use: Never Used Second Hand Smoke Exposure: No Current occupational status: retired Cognitive needs: Yes Hearing needs: Yes Vision needs: Yes Review of Systems Const Denies weakness ENT Denies dizziness Card Denies chest pain, Denies chest pain with activity, Denies syncope, Denies rapid heart rate, Denies pedal edema, Denies edema, Denies leg edema, Denies lightheadedness, Denies palpitations, Denies dyspnea, Denies dyspnea on exertion and Denies orthopnea Resp Denies cough, Denies dyspnea and Denies dyspnea on exertion GI Denies hematochezia and Denies change in stool character Musc Denies abnormal gait, Denies muscle cramps, Denies muscle weakness, Denies numbness, Denies radiating pain into limb and Denies tingling Neuro Denies abnormal gait, Denies dizziness, Denies syncope, Denies numbness, Denies tingling and Denies weakness Endo Denies palpitations Physical Exam Vital Signs: Last Vital Signs Pulse 71 05/12/24 12:44 BP 118/68 05/12/24 12:44 BMI result Body Mass Index 25.5 Const General: comfortable and no acute distress Orientation/consciousness: patient oriented x3 HEENT Other: Unremarkable Head: Yes normal to inspection Neck Neck: Yes normal visual inspection Chest Chest palpation & inspection: normal inspection of the chest Resp Auscultation: clear to auscultation bilaterally Cardio Palpation: normal PMI Heart sounds: S1 normal heart sound present, S2 normal heart sound present, no gallops, Murmur heart sound present systolic II/ and at the right sternal border and no rubs GI Palpation (GI): Soft to palpation Back/Spine/Pelvis Other: unremarkable Skin General skin exam: no rashes or lesions noted Neuro General: patient oriented x3 Extrem General: Yes normal to inspection Psych Mental Status: mental status grossly normal Office Procedures Cardiac Device Check Cardiac Device Check Details: Pacemaker interrogated today. Single-chamber device, programmed DDD. Battery status > 3.5 years. Normal lead parameters. < one% ventricular pacing. Brief NSVT events. Overall, normal device function. [id number] Cardiac Device Check, leadless/single lead pacemaker Procedure code (CPT) selection complete EKG Details: EKG with underlying sinus rhythm at 71/Min; supraventricular ectopy; leftward axis; left bundle-branch block; [place]. [address]-Ixhszybnulqseflvn, Complete Assessment & Plan Assessment & Plan (1) Coronary artery disease: Comment: LAD branch D 1 Code(s): I25.10 - Atherosclerotic heart disease of [place] coronary artery without angina pectoris Category: Medical Qualifiers: Associated angina: without angina Coronary Disease-Associated Artery/Lesion type: [place] artery [place] vs. transplanted heart: [place] heart Qualified Code(s): I25.10 - Atherosclerotic heart disease of [place] coronary artery without angina pectoris Plan: H/O drug-eluting stent to D1 branch of LAD in 2014. Myocardial perfusion imaging study 2022 with normal perfusion. Echocardiogram 2022 with normal LVEF, 60-65% and basal inferior hypokinesis. Clinically, she does not have any angina. Continue aspirin, statins and Zetia. Recent LDL 77 mg/dL. (2) Pacemaker: Code(s): Z95.0 - Presence of cardiac pacemaker Category: Medical Plan: Checked today and with normal function. Pacing rarely. Her pacemaker is not suitable for remote monitoring. (3) LBBB (left bundle branch block): Code(s): I44.7 - Left bundle-branch block, unspecified Category: Medical Plan: Chronic. (4) Non-rheumatic aortic stenosis: Code(s): I35.0 - Nonrheumatic aortic (valve) stenosis Category: Medical Plan: Recheck with next visit. Plan During the consultation, memory issues were discussed as the primary concern, with an understanding that current cognitive impairment does not impede the patient heavily. Plans to maintain current cardiovascular care were conveyed, emphasizing the adequate function and expected battery longevity of her pacemaker. We discussed the upcoming echocardiogram scheduled for one year from now to proactively evaluate heart function. No immediate interventions are required by consensus, and the management plan was agreed upon with the patient, ensuring understanding and consent. Patient Instructions: - Continue to manage medications and daily activities as normal - Return in one year for an echocardiogram and routine cardiac evaluation - Monitor any changes in memory or new symptoms and report them promptly - No changes in current medication or treatment plan unless directed by a healthcare provider - Anticipate pacemaker battery replacement within three to four years Coding Level of Care Code Est Pt Level 4 (63431) Complex EM visit Add On G2211 Diagnoses Coronary artery disease involving [place] coronary artery of [place] heart without angina pectoris I25.10 Associated angina: without angina Coronary Disease-Associated Artery/Lesion type: [place] artery [place] vs. transplanted heart: [place] heart Pacemaker Z95.0 LBBB (left bundle branch block) I44.7 Non-rheumatic aortic stenosis I35.0 CPT Codes Cardiac Device Check - Cardiac Device 1: [id number] Cardiac Device Check, leadless/single lead pacemaker ([id number]) EKG - CPT: 39190-Jhyoohlufzcbigkej, Complete ([id number])
--- OUTSIDE RECORDS SUMMARY | 2024-05-12 14:14 | XMS_ITS | Patient Health Record ---
Author Organization [facility] [employer] [place] Address [address] [place] [address] Care Team Providers Care Graduate Advisor Name Role Phone Jordon Nelson Primary Care Provider Beto Goode Unavailable [phone] Allergies No Known Allergies Reason For Referral No Information Medications Medication SIG (Take, Route, Frequency, Duration) Notes Start Date End Date Status Aspirin 81 MG as directed Orally Active Ezetimibe 10 MG 1 tablet Orally Once a day for 30 day(s) Active Fexofenadine HCl 180 MG 1 tablet Swallow whole with water; do not take with fruit juices. Orally Once a day for 30 day(s) Active Rosuvastatin Calcium 40 MG 1 tablet Oral ly Once a day for 30 day(s) Active Social History Tobacco Use: Social History Observation Description Date Details (start date - stop date) Never Smoker NA - NA Tobacco Use/Smoking Question Answer Notes Are you a: nonsmoker Additional Findings: Tobacco Non-User Current no n-smoker Alcohol Screen Question Answer Notes Did you have a drink containing alcohol in the p ast year? No Points 0 Interpretation Negative Tobacco use other than smoking: Question Answer Notes Are you an other tobacco user? No Problems Problem Type SNOMED Code ICD Code Onset Dates Problem Status W/U Status Risk Notes Problem Acquired hallux valgus (30363223) Hallux valgus (acquired), left foot (M20.12) Active confirmed Problem Acquired hallux valgus (89625900) Hallux valgus (acquired), right foot (M20.11) Active confirmed Problem Acquired hammer toe of right foot ([id number]) Other hammer toe(s) (acquired), right foot (M20.41) Active confirmed Plan Of Treatment No Information Medical (General) History Medical History History ICD Code Arthritis Cataracts Dementia Surgical History Surgery Date(Month/Year)
== END 2024-05-12 12:58 | disposition home or self-care (01) ==
LOC: HO.HCS 11:59
PROVIDERS: PCP Internal Medicine; Visit Provider Internal Medicine
DX: I25.10 Atherosclerotic heart disease of native coronary artery without angina pectoris (principal); Z95.0 Presence of cardiac pacemaker; I44.7 Left bundle-branch block, unspecified; I35.0 Nonrheumatic aortic (valve) stenosis
CPT/HCPCS: 93010; 93279; 99214; G2211

== ENCOUNTER → 2024-05-12 11:58 | Outpatient (BNVA) | payer MEDICARE, MEDICAID, SELFPAY | PROVIDERS: PCP Internal Medicine; Visit Provider Internal Medicine | DX: I25.10 Atherosclerotic heart disease of native coronary artery without angina pectoris (principal); I44.7 Left bundle-branch block, unspecified; I35.0 Nonrheumatic aortic (valve) stenosis; Z45.018 Encounter for adjustment and management of other part of cardiac pacemaker | CPT/HCPCS: 93005; 99212 ==

== ENCOUNTER 2024-05-22 07:48 | Inpatient (IN) | payer MEDICARE, MEDICAID, SELFPAY ==
[2024-05-22] VITALS (27 sets, daily range): BP systolic 66–145; BP diastolic 40–87; PULSE 69–87; RESP 12–26; TEMP 36.1–36.6; O2SAT 95–100; BMI 26.5; BMI 25.8
--- NOTE | 2024-05-22 | ECG_ITS ---
Test Reason : hypotension Blood Pressure : */* mmHG Vent. Rate : 79 BPM Atrial Rate : 79 BPM P-R Int : 176 ms QRS Dur : 128 ms QT Int : 428 ms P-R-T Axes : 63 -43 110 degrees QTcB Int : 490 ms Normal sinus rhythm Left axis deviation Left bundle branch block Abnormal ECG When compared with ECG of 13-Jul-2022 10:28, QT has lengthened Referred By: Brayan Mcgill Electronically Signed By: FLY SHIRLEY MD
--- NOTE | ~2024-05-22 | CT_ITS ---
EXAMINATION: CT ABDOMEN PELVIS WITHOUT THEN WITH IV CONTRAST HISTORY: GIB COMPARISON: None. TECHNIQUE: CT scan of the abdomen and pelvis was performed before and after the intravenous administration of 80 mL Omnipaque 350. Post contrast imaging was obtained in the arterial and delayed phases. Coronal and sagittal reformatted images were generated and reviewed. Oral contrast material was not administered per department protocol. This CT exam was performed with one or more of the following dose reduction techniques: automated exposure control, adjustment of the mA and/or kV according to patient size, use of iterative reconstruction technique. DLP: 1511 mGy-cm ABDOMEN: LOWER CHEST: The visualized lung bases are clear. There is no pleural effusion. CARDIOVASCULATURE: The heart is normal in size. There is no pericardial effusion. LIVER: The liver is normal in size and contour. No liver mass is identified. The hepatic and portal veins are patent. GALLBLADDER / BILE DUCTS: The gallbladder is unremarkable. There is no intra or extrahepatic biliary ductal dilatation. SPLEEN: The spleen is normal in size. No focal splenic lesion is identified. PANCREAS: The pancreas is unremarkable in appearance. ADRENAL GLANDS: Within normal limits. KIDNEYS/RETROPERITONEUM: There is a 3 mm nonobstructing calculus at the upper pole of the left kidney. There is no hydronephrosis. No renal masses are identified. LYMPH NODES: No abdominal or pelvic lymphadenopathy. VASCULATURE: The abdominal aorta demonstrates atherosclerotic calcification, but is normal in caliber. MESENTERY/PERITONEUM: No free fluid. No masses. There is no free intraperitoneal gas. STOMACH: There is a moderate hiatal hernia. The remainder of the stomach is collapsed. SMALL BOWEL: The small bowel is normal in caliber. COLON: The colon is unremarkable. There is no evidence of contrast extravasation to suggest active GI bleeding. APPENDIX: The appendix is not seen, however no inflammatory changes are seen adjacent to the cecum . URINARY BLADDER/PELVIC ORGANS: The urinary bladder is unremarkable. The patient is status post hysterectomy. BONES / SOFT TISSUES: There is severe degenerative disc disease of the spine. CT/CT gi bleed abd pel wo/w IVcon IMPRESSION: 1. No evidence of contrast extravasation in the GI tract to suggest active GI bleeding. 2. Moderate hiatal hernia. Electronically signed by: Jose aLngley MD 05/22/2024 10:18 AM EDT RP
--- NOTE | ~2024-05-22 | CT_ITS ---
EXAMINATION: CT HEAD WITHOUT CONTRAST CLINICAL INFORMATION: Fall one week ago with head strike. COMPARISON: 11/26/2018. TECHNIQUE: Contiguous axial imaging was performed from the skull base to vertex without intravenous administration of contrast. This CT examination was performed using dose optimization techniques as appropriate, variously including the following: *Automated exposure control *Adjustment of mA and/or kV according to patient size (this includes techniques or standardized protocols for targeted exams where dose is matched to indication/reason for exam; i.e. extremities or head) *Use of iterative reconstruction technique FINDINGS: There is no evidence of intracranial hemorrhage or extra-axial fluid collection. There is no mass effect, or edema. No CT evidence of acute territorial infarct. Ventricles, sulci, and cisterns are normal in size and configuration for patient age. No hydrocephalus. No midline shift. Negative hyperdense MCA sign. Negative insular ribbon sign. Old lacunar type infarcts bilateral anterior gangliocapsular regions. Patchy periventricular and deep white matter hypoattenuation is consistent with mild small vessel ischemic changes. Normal pituitary. Mild atheromatous calcification of the bilateral carotid siphons. Globes and orbital contents image normally. There are bilateral lens replacements. No extracranial soft tissue abnormalities. Cerumen impaction right EAC. The paranasal sinuses, mastoid air cells, and tympanic cavities are normally aerated. No suspicious bony abnormalities. There are no acute fractures evident. Mild hyperostosis frontalis internus. CT/CT head/brain wo IV con IMPRESSION: 1. No acute intracranial abnormality. No acute fractures. 2. Chronic changes as discussed Electronically signed by: Tom Dumont MD 05/22/2024 10:16 AM EDT
--- NOTE | ~2024-05-22 | XR_ITS ---
EXAMINATION: XR CHEST CLINICAL INFORMATION: fall COMPARISON: 07/13/2022. TECHNIQUE: AP view of the chest was obtained. FINDINGS: Left-sided single-lead pacer device in place with lead extending into the right ventricle. The cardiac, hilar, and mediastinal contours are normal. Aortic mural calcifications. The lungs are clear bilaterally. No pneumothorax or effusion. No focal osseous or soft tissue abnormality. No acute fractures seen. Degenerative changes in the spine and shoulder joints. Probable bilateral rotator cuff tears. XR/XR chest 1V IMPRESSION: No active pulmonary disease. Electronically signed by: Tom Dumont MD 05/22/2024 10:19 AM EDT
--- NOTE | ~2024-05-22 | CT_ITS ---
EXAMINATION: CT CERVICAL SPINE WITHOUT IV CONTRAST HISTORY: fall. TECHNIQUE: Helical CT of the cervical spine was performed per standard departmental protocol. Coronal and sagittal reformatted images were also evaluated. One or more of the following techniques was used for dose reduction: Automated exposure control, adjustment of the mA and/or kV according to patient size, use of iterative reconstruction technique. DLP: 276 mGy-cm COMPARISON: There are no prior studies for comparison. FINDINGS: CERVICAL SPINE: The vertebral bodies maintain normal height without evidence of fracture. There is slight anterolisthesis of C3 on C4 and T7 on T1, likely related to degenerative change of the facet joints. There is diffuse severe degenerative disc disease with disc space narrowing and osteophyte formation. There is diffuse facet osteoarthritis and uncovertebral joint hypertrophy causing bilateral neural foraminal narrowing. Evaluation for disc pathology is limited by lack of intrathecal contrast material, however. BRAIN: The visualized portion of the brain is unremarkable. SINUSES: The visualized paranasal sinuses, mastoid air cells and middle ear cavities are unremarkable. LUNG APICES: There is biapical pleural and parenchymal scarring. SOFT TISSUES: There is calcification of the bilateral internal carotid arteries. CT/CT cervical spine wo IV con IMPRESSION: No evidence of fracture of the cervical spine. Degenerative changes as described. Electronically signed by: Jose Langley MD 05/22/2024 10:10 AM EDT
[2024-05-22] MEDS: Pantoprazole Sodium 40 MG/10 ML VIAL 80 MG IVPUSH (08:09)
[2024-05-22] MEDS: ondansetron HCL 4 MG/2 ML VIAL IVPUSH ×2 (08:09→16:05)
--- NOTE | 2024-05-22 08:09 | ED_ITS ---
HPI - General Adult General Chief complaint: GI Bleed Stated complaint: Nausea vomitting Time Seen by Provider: 05/22/24 08:01 Source: patient Mode of arrival: ambulatory Limitations: no limitations History of Present Illness HPI narrative: This is an 88-year-old woman with a past medical history of hypercholesterolemia, CAD status post SYED to D1 of LAD in 2014, rheumatoid arthritis, osteopenia, status post pacemaker (2011 due to syncope), dementia who is brought in by EMS for evaluation of hematochezia. EMS states that the patient had a fall about a week ago and hit her head. EMS states that patient was not evaluated at that time. EMS reports patient had onset of bloody vomit this morning with associated blood clots. EMS states that it was also noted bloody stool in the toilet bowl. EMS states that they were not told whether or not this was melena or hematochezia. EMS states no blood thinning medications. EMS reports patient was hypotensive EN route and provided 250 cc IV fluid bolus EN route. EMS states initiating a 2nd bag of fluids providing approximately 50 cc prior to arrival here in the ED. the patient states that she feels terrible. She states no pain. She states no nausea. History is limited due to patient's history of dementia. Related Data Previous Rx's ?Medication ?Instructions ?Recorded aspirin 81 mg tablet,delayed 81 mg PO DAILY #90 tabs 04/06/23 release (Kristie Low Dose Aspirin) cholecalciferol (vitamin D3) 50 50 mcg PO DAILY 90 days #90 caps 05/16/23 mcg (2,000 unit) capsule fexofenadine 180 mg tablet 180 mg PO DAILY #90 tabs 05/16/23 (Manisha Allergy) ezetimibe 10 mg tablet 10 mg PO DAILY #90 tabs 01/25/24 rosuvastatin 40 mg tablet 40 mg PO DAILY #90 tabs 01/25/24 hydroxyzine HCl 25 mg tablet 25 mg PO TID PRN agitation #30 tabs 05/16/24 Allergies Allergy/AdvReac Type Severity Reaction Status Date / Time SEASONAL ALLERGIES Allergy Mild ITCHY EYES Uncoded 05/22/24 07:58 seasonal dust, pollen, etc. Allergy Unknown redness, Uncoded 05/22/24 07:58 coughing Review of Systems 2 Review of Systems: ROS as per HPI [facility] Past Medical History Medical History (Updated 05/22/24 @ 11:52 by Brayan Mcgill MD) Coronary artery disease Rheumatoid arthritis Dementia Osteoarthritis, knee Hypercholesterolemia Insomnia Pacemaker Exposure to COVID-19 virus Surgical History History of hysterectomy Family History Family History (Updated 05/12/24 @ 12:52 by Amrit Musa MD) Unknown No problems noted. Social History Social History Housing: House Alcohol intake: never Patient Tobacco Use Status: Never used Tobacco Tobacco use type: Cigarette e-Cigarette/Vaping Use: Never Used Second Hand Smoke Exposure: No Current occupational status: retired Cognitive needs: Yes Hearing needs: Yes Vision needs: Yes Physical Exam ED Vital Signs: Vital Signs - 24 hr 05/22/24 07:54 05/22/24 08:12 05/22/24 08:15 Temperature 97.3 F Pulse Rate 79 72 77 Respiratory Rate 20 26 H Blood Pressure 80/41 L 68/42 L 66/40 L Pulse Oximetry Oxygen Delivery Method Oxygen Flow Rate 05/22/24 08:23 05/22/24 08:27 05/22/24 08:40 Temperature Pulse Rate 82 83 84 Respiratory Rate 26 H 26 H Blood Pressure 89/55 L 98/59 L 124/87 Pulse Oximetry Oxygen Delivery Method Oxygen Flow Rate 05/22/24 08:48 05/22/24 09:14 05/22/24 09:40 Temperature Pulse Rate 87 80 Respiratory Rate 26 H 16 18 Blood Pressure 114/77 107/64 129/50 L Pulse Oximetry 95 95 100 Oxygen Delivery Method Nasal Cannula Room Air Nasal Cannula Oxygen Flow Rate 2 2 05/22/24 10:20 05/22/24 10:23 05/22/24 10:31 Temperature 97.7 F 97.7 F Pulse Rate 77 75 76 Respiratory Rate 20 20 18 Blood Pressure 89/45 L 89/45 L 99/54 L Pulse Oximetry 100 100 Oxygen Delivery Method Nasal Cannula Nasal Cannula Oxygen Flow Rate 2 2 05/22/24 10:35 05/22/24 10:37 05/22/24 11:08 Temperature 97.5 F 97.7 F Pulse Rate 73 75 69 Respiratory Rate 16 18 18 Blood Pressure 103/48 L 101/45 L 112/51 L Pulse Oximetry 100 Oxygen Delivery Method Nasal Cannula Oxygen Flow Rate 2 05/22/24 11:23 05/22/24 11:28 05/22/24 11:34 Temperature 97.7 F 97.7 F Pulse Rate 73 75 72 Respiratory Rate 16 16 16 Blood Pressure 114/50 L 114/50 L 104/53 L Pulse Oximetry 100 Oxygen Delivery Method Nasal Cannula Oxygen Flow Rate 2 05/22/24 11:43 05/22/24 11:43 Temperature 97.8 F 97.8 F Pulse Rate 69 69 Respiratory Rate 18 18 Blood Pressure 118/61 118/61 Pulse Oximetry 100 Oxygen Delivery Method Nasal Cannula Oxygen Flow Rate 2 BMI result Body Mass Index 26.5 Gen: NAD, ill-appearing, awake, alert, oriented to person and place/Hospital, states that it is February HEENT: NCAT, EOMI, pale conjunctiva CV: RRR Pulm: CTAB, no increased work of breathing GI: Soft, NTND, no rebound, guarding or rigidity Rectal: Light brown stool Neuro: Grossly non focal Medications Administered Generic Name Dose Route Start Last Admin Trade Name Freq PRN Reason Stop Dose Admin Norepinephrine Bitartrate 8 mg in 250 mls @ 0 mls/hr 05/22/24 08:15 05/22/24 08:15 Levophed IVCONT 0.05 mcg/kg/min .Q0M NIHARIKA 5.78 mls/hr Administration Protocol Per Protocol Discontinued Medications Generic Name Dose Route Start Last Admin Trade Name Freq PRN Reason Stop Dose Admin Sodium Chloride 1,000 mls @ 999 mls/hr 05/22/24 08:15 05/22/24 09:00 Ns IV 05/22/24 09:15 Infused .Q1H1M NIHARIKA Infusion Calcium Gluconate 1 gm in 50 mls @ 50 mls/hr 05/22/24 08:28 05/22/24 09:14 Calcium Gluconate IV 05/22/24 09:27 Infused ONCE ONE Infusion Piperacillin Sod/Tazobactam 50 mls @ 100 mls/hr 05/22/24 08:39 05/22/24 09:14 Sod 3.375 gm/ Sodium Chloride IV 05/22/24 09:08 Infused ONCE ONE Infusion Iohexol 100 ml 05/22/24 09:32 05/22/24 09:32 Iohexol 350 Mg/Ml 100 Ml Infus..Btl IV 05/22/24 09:33 80 ml ONCE ONE Administration Ondansetron HCl 4 mg 05/22/24 08:01 05/22/24 08:09 Ondansetron Hcl 4 Mg/2 Ml Vial IVPUSH 05/22/24 08:02 4 mg ONCE ONE Administration Pantoprazole Sodium 80 mg 05/22/24 08:01 05/22/24 08:09 Pantoprazole Sodium 40 Mg/10 Ml Vial IVPUSH 05/22/24 08:02 80 mg ONCE ONE Administration Medical Decision Making Medical Decision Making [place] Narrative: 0814 - patient arrives hypotensive in the setting of hematemesis. Patient is not on blood thinners per chart review and review of external/non-ED paperwork that arrives with EMS. We will provide the patient with 1 L IV fluids, initiate peripheral vasopressors while awaiting fluid responsiveness. We will order 2 units PRBCs at this time, but will plan for emergent blood transfusion if patient remains hypotensive after IV fluid bolus and/or if hemoglobin results less than 7.0. Will obtain screening blood work, EKG and CT imaging. The patient is treated supportively with Zofran and Protonix. Considered octreotide, but patient has no documented history of esophageal varices to suggest variceal bleeding. Considered ceftriaxone empirically, but patient has no documented history of liver disease. 0827 - FAST negative. Patient with MAP >65mmHg on 0.05mcg/kg/min peripheral Levophed. 1L fluid bolus infusing on a pressure bag at 999cc/hr. Given plan for transfusion of 2 units PRBC will provide empiric calcium as well. I have discussed patient's case and management thus far with java developer consultant sales financial analyst, Dr. Gutierrez. Will defer 30cc/kg given clinical picture of acute blood loss, need for pRBC tranfusion and concern for potential fluid overload 0840 - Lactic acid 5.4 and WBC 19.7 and given hypotension will provide empiric broad spectrum antibiotic with Zosyn though clinic suspicion for sepsis is low given overall clinical picture as likely unstable upper GI bleed (leukocytosis is likely reactive in nature and lactic acid is likely type B lactic). Hemoglobin 8.9 (previous 12.8 on 04/02/2023). Platelets 201. 0858 - discussed with Sister Verito at the bedside regarding patient's code status. she states she is not sure, but will reach out to Sister Aleah (patient's proxy) to further discuss. VBG per my interpretation demonstrates no acid-base derangement. Metabolic panel notable for glucose 162 (no history of diabetes, suspect this is stress hyperglycemia), AST and ALT of 39 and 49, respectively, likely secondary to shock liver in the setting of hypotension, Troponin 113.2 likely demand ischemic in setting of hypotension (will trend), stool occult negative. 0912 - I have kept patient NPO and further discussed with Dr. Coe who has additionally requested PPI infusion. She states she will discuss with Anesthesia plan for scope. She requested serial troponin and repeat hemogobin at 1000 (ordered). 0924 - I have discussed patient's case and management with insurance verification representative Dr. Gross 0935 - I have discussed patient's case and management with anesthesiologist, Dr. Michel, who requests additional 3rd unit of pRBC be put on hold. I have requested this from the blood bank and spoken directly to the blood bank staff regarding this. Blood bank staff also states that the first 2 units will be ready in 5 minutes. I discussed plan of care with bedside RN with plan to warm and transfuse 2 units pRBC over 1 hour with anticipation of scope late this morning. 1055 - repeat hemoglobin 8.2. Repeat troponin pending 1120 - repeat lactic acid 5.5. Repeat troponin 117. The patient receiving PRBC transfusion at this time with no change to Levophed GTT 1149 - I have further discussed with insurance verification representative, Dr. Gross, who accepts the patient for ICU admission. Patient has recieved 2U pRBC and continued on same dose of Levophed GTT. Dr. Coe updated on clinical condition as well - she requests repeat CBC which is ordered Critical Care Time: A total of 180 minutes spent in direct patient care with coordinating critical resuscitation, procedures, reviewing records, discussing with consultants, reviewing labs, and/or managing patient. Admission/Observation Consideration of admission/observation: Escalation of care including admission/observation considered Consult Healthcare Provider Management of the patient was discussed with: Hospitalist and Look Out Tower Fire Watcher Lab Data MDM Lab Attestation statement: I reviewed the patient's lab results. 05/22/24 10:33 05/22/24 08:32 Labs: Lab Results 05/22/24 05/22/24 05/22/24 Range/Units 08:06 08:32 08:45 WBC 19.7 H (4.8-10.8) X10*3/uL RBC 3.67 L D (4.20-5.50) X10*6/uL Hgb 8.9 L D (12.0-16.0) g/dl Hct 27.4 L D (37.0-47.0) % MCV 74.7 L (80.0-98.0) fL MCH 24.3 L (27.0-33.0) pg MCHC 32.5 (31.0-35.0) g/dl RDW 14.8 (11.0-16.0) % Plt Count 201 (160-400) X10*3/uL MPV 11.0 (9.4-12.3) fL Immature Gran % (Auto) 0.9 H (0.0-0.4) % Neut % (Auto) 85.3 H (45-73) % Lymph % (Auto) 8.2 L (20-40) % Beaver % (Auto) 5.4 (2-11) % Eos % (Auto) 0.0 (0-4) % Baso % (Auto) 0.2 (0-2) % Lymph # (Auto) 1.6 (1.2-4.9) X10*3/uL Beaver # (Auto) 1.1 (0.1-1.2) X10*3/uL Eos # (Auto) 0.0 (0.0-0.4) X10*3/uL Baso # (Auto) 0.0 (0.0-0.2) X10*3/uL Abs Immat Gran (auto) 0.18 H (0.00-0.03) X10*3/uL Absolute Neuts (auto) 16.8 H (2.0-8.3) x10*3/uL Absolute Nucleated RBC 0.000 (0.0-0.012) X10*3/uL Nucleated RBC % (auto) 0.0 (0.0-0.2) /100WBC PT 12.8 H (10.9-12.4) SEC INR 1.1 (0.9-1.1) APTT 21.6 L (26.0-36.8) SEC VBG pH 7.37 (7.32-7.43) VBG pCO2 26 mmHg VBG pO2 103 mmHg VBG HCO3 15 L (22-26) mmol/L VBG O2 Saturation 99.0 % VBG Base Excess -8.6 mmol/L Sodium 139 (135-145) mmol/L Potassium 4.3 (3.3-5.1) mmol/L Chloride 112 H (96-108) mmol/L Carbon Dioxide 16 L (22-29) mmol/L Anion Gap 15 (12-20) BUN 44 H (9-16) mg/dL Creatinine 0.74 (0.5-1.4) mg/dL Estim Creat Clear Calc 42.2 Estimated GFR > 60 Random Glucose 162 H (60-115) mg/dL Lactic Acid 5.4 H* (0.5-2.0) mmol/L Lactic Acid F/U @ 2Hr (0.5-2.0) mmol/L Calcium 8.2 L D (8.4-10.2) mg/dL Total Bilirubin 0.5 (0.0-1.0) mg/dL Direct Bilirubin 0.2 (0.0-0.5) mg/dL AST 39 H (5-31) U/L ALT 49 H (0-31) U/L Alkaline Phosphatase 53 (39-117) U/L Troponin I High Sens 113.2 H* (<3.5-17.0) ng/L Total Protein 5.3 L (6.5-8.0) g/dL Albumin 2.8 L (3.5-5.0) g/dL Stool Occult Blood NEGATIVE (NEGATIVE) Blood Type Antibody Screen Crossmatch 05/22/24 05/22/24 Range/Units 08:53 10:33 WBC 20.4 H (4.8-10.8) X10*3/uL RBC 3.47 L (4.20-5.50) X10*6/uL Hgb 8.2 L (12.0-16.0) g/dl Hct 26.3 L (37.0-47.0) % MCV 75.8 L (80.0-98.0) fL MCH 23.6 L (27.0-33.0) pg MCHC 31.2 (31.0-35.0) g/dl RDW 14.7 (11.0-16.0) % Plt Count 177 (160-400) X10*3/uL MPV 11.6 (9.4-12.3) fL Immature Gran % (Auto) 0.9 H (0.0-0.4) % Neut % (Auto) 85.6 H (45-73) % Lymph % (Auto) 8.7 L (20-40) % Beaver % (Auto) 4.5 (2-11) % Eos % (Auto) 0.0 (0-4) % Baso % (Auto) 0.3 (0-2) % Lymph # (Auto) 1.8 (1.2-4.9) X10*3/uL Beaver # (Auto) 0.9 (0.1-1.2) X10*3/uL Eos # (Auto) 0.0 (0.0-0.4) X10*3/uL Baso # (Auto) 0.1 (0.0-0.2) X10*3/uL Abs Immat Gran (auto) 0.18 H (0.00-0.03) X10*3/uL Absolute Neuts (auto) 17.5 H (2.0-8.3) x10*3/uL Absolute Nucleated RBC 0.000 (0.0-0.012) X10*3/uL Nucleated RBC % (auto) 0.0 (0.0-0.2) /100WBC PT (10.9-12.4) SEC INR (0.9-1.1) APTT (26.0-36.8) SEC VBG pH (7.32-7.43) VBG pCO2 mmHg VBG pO2 mmHg VBG HCO3 (22-26) mmol/L VBG O2 Saturation % VBG Base Excess mmol/L Sodium (135-145) mmol/L Potassium (3.3-5.1) mmol/L Chloride (96-108) mmol/L Carbon Dioxide (22-29) mmol/L Anion Gap (12-20) BUN (9-16) mg/dL Creatinine (0.5-1.4) mg/dL Estim Creat Clear Calc Estimated GFR Random Glucose (60-115) mg/dL Lactic Acid (0.5-2.0) mmol/L Lactic Acid F/U @ 2Hr 5.5 H* (0.5-2.0) mmol/L Calcium (8.4-10.2) mg/dL Total Bilirubin (0.0-1.0) mg/dL Direct Bilirubin (0.0-0.5) mg/dL AST (5-31) U/L ALT (0-31) U/L Alkaline Phosphatase (39-117) U/L Troponin I High Sens 117.6 H* (<3.5-17.0) ng/L Total Protein (6.5-8.0) g/dL Albumin (3.5-5.0) g/dL Stool Occult Blood (NEGATIVE) Blood Type A Negative Antibody Screen NEGATIVE Crossmatch See Detail Independent Interpretation I performed an independent interpretation of an: EKG and Plain X-Ray Interpretation: EKG shows sinus rhythm at 79 beats per minute, CT 176, QRS 128, left bundle branch block morphology, QTC 490, no STEMI Per my interpretation, chest x-ray shows no pleural effusion, focal consolidation or pneumothorax. Per my interpretation, CT head and cervical spine demonstrate no acute intracranial hemorrhage or cervical spine fracture, respectively. Radiology Impression Discussion of test interpretation with radiology: I have reviewed the radiologist's reading. Radiologist Impression: XR/XR chest 1V IMPRESSION: No active pulmonary disease. Electronically signed by: Tom Dumont MD 05/22/2024 10:19 AM EDT RP Dictated By: Tom Dumont MD Signed By: <Electronically signed by Tom Dumont MD in OV> 05/22/[address]/CT head/brain wo IV con IMPRESSION: 1. No acute intracranial abnormality. No acute fractures. 2. Chronic changes as discussed Electronically signed by: Tom Dumont MD 05/22/2024 10:16 AM EDT RP Dictated By: Tom Dumont MD Signed By: <Electronically signed by Tom Dumont MD in [place]> 05/22/[address]/CT gi bleed abd pel wo/w IVcon IMPRESSION: 1. No evidence of contrast extravasation in the GI tract to suggest active GI bleeding. 2. Moderate hiatal hernia. Electronically signed by: Jose Langley MD 05/22/2024 10:18 AM EDT RP Dictated By: Jose Langley MD Signed By: <Electronically signed by Jose Langley MD in [place]> 05/22/[address]/CT cervical spine wo IV con IMPRESSION: No evidence of fracture of the cervical spine. Degenerative changes as described. Electronically signed by: Jose Langley MD 05/22/2024 10:10 AM EDT RP Dictated By: Jose Langley MD Signed By: <Electronically signed by Jose Langley MD in OV> 05/22/24 1010 Independent Historian Clinical information obtained from an independent historian. History obtained from or confirmed by: Friend Discussed with Sister Verito as above Discharge Plan Discharge Clinical Impression: Hemorrhagic shock, UGIB (upper gastrointestinal bleed), Shock liver, Leukocytosis, Sepsis Patient Disposition: Admitted As Inpatient Prescriptions: No Action aspirin [Kristie Low Dose Aspirin] 81 mg tablet,delayed release (DR/EC) 81 mg PO DAILY Qty: 90 3RF ezetimibe 10 mg tablet 10 mg PO DAILY Qty: 90 1RF rosuvastatin 40 mg tablet 40 mg PO DAILY Qty: 90 1RF hydroxyzine HCl 25 mg tablet 25 mg PO TID PRN (Reason: agitation) Qty: 30 0RF fexofenadine [Manisha Allergy] 180 mg tablet 180 mg PO DAILY Qty: 90 1RF cholecalciferol (vitamin D3) 50 mcg (2,000 unit) capsule 50 mcg PO DAILY 90 Days Qty: 90 3RF Print Language: Danish
[2024-05-22] MEDS: 0.9 % Sodium Chloride 1,000 ML 999 ML IV (08:10)
[2024-05-22 08:13] LABS: MANUAL DIFF FLAG NO
[2024-05-22 08:14] LABS: Basophils Percent Auto 0.2 % (0-2); Hematocrit 27.4 % (37.0-47.0); Hemoglobin 8.9 g/dl (12.0-16.0); Imm Gran Abs Auto 0.18 X10*3/uL (0.00-0.03); Imm Gran Pct Auto 0.9 % (0.0-0.4); Lymphocytes Absolute Auto 1.6 X10*3/uL (1.2-4.9); Lymphocytes Percent Auto 8.2 % (20-40); Mean Corpuscular HGB Conc 32.5 g/dl (31.0-35.0); Mean Corpuscular Hemoglobin 24.3 pg (27.0-33.0); Mean Corpuscular Volume 74.7 fL (80.0-98.0); Monocytes Absolute Auto 1.1 X10*3/uL (0.1-1.2); Monocytes Percent Auto 5.4 % (2-11); Neutrophils Absolute Auto 16.8 x10*3/uL (2.0-8.3); Neutrophils Percent Auto 85.3 % (45-73); Platelet Count 201 X10*3/uL (160-400); Red Blood Count 3.67 X10*6/uL (4.20-5.50); Red Cell Distribution Width 14.8 % (11.0-16.0); White Blood Count 19.7 X10*3/uL (4.8-10.8)
[2024-05-22] MEDS: Norepinephrine Bitartrate/D5W 8 MG/250 ML PLAST..BAG 5.78 MG IVCONT (08:15)
--- NOTE | 2024-05-22 08:24 | PC.NURSE ---
Dr Mcgill at bedside performing FAST exam at this time. BP trending up. Difficulty obtaining 02 at this time and attempting different methods to obtain. Pt cool and pale. Fluids and Norepi infusing as charted. NSR on tele. Pt tachypnic and shallow. Core temp 97.2. Answering questions with yes or no but appears to be oriented x 1 but does follow simple commands.
[2024-05-22 08:36] LABS: Lactic Acid 5.4 mmol/L (0.5-2.0)
[2024-05-22 08:37] LABS: INTERNATIONAL NORM RATIO 1.1 (0.9-1.1); Prothrombin Time 12.8 SEC (10.9-12.4)
[2024-05-22 08:44] LABS: Partial Thromboplastin Time 21.6 SEC (26.0-36.8)
[2024-05-22] MEDS: Calcium Gluconate/NaCl,Iso-Osm 1 GM/50 ML PLAST..BAG IV (08:44)
[2024-05-22 08:47] LABS: OBS Int Ctl Valid YES; OBS1 NEGATIVE (NEGATIVE)
[2024-05-22 08:48] LABS: Troponin-I High Sensitivity 113.2 ng/L (<3.5-17.0)
[2024-05-22 08:49] LABS: Venous Blood Gas Refer to POC result
[2024-05-22] MEDS: Piperacillin Sodium/Tazobactam 3.375 GM in 0.9 % Sodium Chloride 50 ML IV (08:50)
[2024-05-22 08:51] LABS: VBG Base Excess -8.6 mmol/L; VBG HCO3 15 mmol/L (22-26); VBG pCO2 26 mmHg; VBG pH 7.37 (7.32-7.43); VBG pO2 103 mmHg
[2024-05-22 08:53] LABS: Alanine Aminotransferase 49 U/L (0-31); Albumin Level 2.8 g/dL (3.5-5.0); Alkaline Phosphatase 53 U/L (39-117); Anion Gap 15 (12-20); Aspartate Amino Transferase 39 U/L (5-31); Bilirubin Direct 0.2 mg/dL (0.0-0.5); Bilirubin Total 0.5 mg/dL (0.0-1.0); Blood Urea Nitrogen 44 mg/dL (9-16); Calcium 8.2 mg/dL (8.4-10.2); Carbon Dioxide 16 mmol/L (22-29); Chloride 112 mmol/L (96-108); Creatinine Clr Calc Pharmacy 42.2; Estimated Glomerular Filt Rate > 60; Glucose Random 162 mg/dL (60-115); Potassium 4.3 mmol/L (3.3-5.1); Sodium 139 mmol/L (135-145); Total Protein 5.3 g/dL (6.5-8.0)
--- NOTE | 2024-05-22 09:23 | P.CNGI_ITS ---
History of Present Illness Data of Consult Service Date: 05/22/24 Requesting physician: Brayan Mcgill Primary Care Provider: Jordon Nelson MD HPI Reason for consult: UGI bleeding 88 YF with hypercholesterolemia, CAD status post SYED to D1 of LAD in 2014, rheumatoid arthritis, osteopenia, status post pacemaker (2012 due to syncope), dementia who is brought in by EMS for evaluation of hematochezia. EMS states that the patient had a fall about a week ago and hit her head. EMS states that patient was not evaluated at that time. EMS reports patient had onset of bloody vomit this morning with associated blood clots. EMS states that it was also noted bloody stool in the toilet bowl. EMS states that they were not told whether or not this was melena or hematochezia. EMS stated no blood thinning medications and patient was hypotensive EN route and provided 250 cc IV fluid bolus EN route. EMS states initiating a 2nd bag of fluids providing approximately 50 cc prior to arrival in the ED. Pt resides in a [facility] in [place] and I spoke to Sister Leigh Ann who reported pt had an episode of non-bloody vomiting last night. She went to sleep. When the sister saw her this am, she had blood on her mouth and passed some blood per rectum - unsure what time she had the bleeding. Pt has dementia and unable to give a meaningful hx Patient denies abd pain or nausea and states that she feels terrible. Review of Systems 2 Review of Systems: Yes Unobtainable due to mental status PMFSH Past Medical History Medical History (Updated 05/22/24 @ 11:52 by Brayan Mcgill MD) Coronary artery disease Rheumatoid arthritis Dementia Osteoarthritis, knee Hypercholesterolemia Insomnia Pacemaker Exposure to COVID-19 virus Family History Family History (Updated 05/12/24 @ 12:52 by Amrit Musa MD) Unknown No problems noted. Surgical History Surgical History History of hysterectomy Social History Social History Household Members: Unknown / Unable to assess Housing: Unknown / Unable to assess Alcohol intake: never Patient Tobacco Use Status: Never used Tobacco Tobacco use type: Cigarette e-Cigarette/Vaping Use: Never Used Second Hand Smoke Exposure: No Current occupational status: retired Cognitive needs: Yes Hearing needs: Yes Vision needs: Yes Meds Allergies Allergy/AdvReac Type Severity Reaction Status Date / Time SEASONAL ALLERGIES Allergy Mild ITCHY EYES Uncoded 05/22/24 07:58 seasonal dust, pollen, etc. Allergy Unknown redness, Uncoded 05/22/24 07:58 coughing Active Medications: Current Medications Norepinephrine Bitartrate (Levophed) 8 mg in 250 mls @ 0 mls/hr IVCONT .Q0M [facility]; Protocol Last Admin: 05/22/24 08:15 Dose: 0.05 mcg/kg/min, 5.78 mls/hr Calcium Gluconate (Calcium Gluconate) 1 gm in 50 mls @ 50 mls/hr IV ONCE ONE Stop: 05/22/24 09:27 Last Infusion: 05/22/24 09:14 Dose: Infused Pantoprazole Sodium 80 mg/ (Sodium Chloride) 100 mls @ 10 mls/hr IV .Q10H [facility] Physical Exam 2 Vital Signs: Vital Signs: Last Vital Signs Temp 97.3 F 05/22/24 08:12 Pulse 87 05/22/24 09:14 Resp 16 05/22/24 09:14 BP 107/64 05/22/24 09:14 Pulse Ox 95 05/22/24 09:14 O2 Del Method Room Air 05/22/24 09:14 O2 Flow Rate 2 05/22/24 08:48 BMI result Body Mass Index 26.5 Const: General: comfortable and no acute distress O rientation/consciousness: patient oriented x3 HEENT: Other: Unremarkable Head: Yes normal to inspection Neck: Neck: Yes normal visual inspection Chest: Chest palpation & inspection: normal inspection of the chest Resp: Auscultation: clear to auscultation bilaterally Cardio: Palpation: normal PMI Heart sounds: S1 normal heart sound present, S2 normal heart sound present, no gallops, Murmur heart sound present systolic II/ and at the right sternal border and no rubs GI: Palpation (GI): Soft to palpation Back/Spine/Pelvis: Other: unremarkable Skin: General skin exam: no rashes or lesions noted Neuro: General: patient oriented x3 Extrem: General: Yes normal to inspection Psych: Mental Status: mental status grossly normal Results Labs 05/22/24 13:33 05/22/24 08:32 Labs: Short CBC 05/22/24 Range/Units 08:06 WBC 19.7 H (4.8-10.8) X10*3/uL Hgb 8.9 L D (12.0-16.0) g/dl Hct 27.4 L D (37.0-47.0) % Plt Count 201 (160-400) X10*3/uL BMP 05/22/24 08:32 Sodium 139 Potassium 4.3 Chloride 112 H Carbon Dioxide 16 L BUN 44 H Creatinine 0.74 Calcium 8.2 L D Liver Function 05/22/24 Range/Units 08:32 Total Bilirubin 0.5 (0.0-1.0) mg/dL Direct Bilirubin 0.2 (0.0-0.5) mg/dL AST 39 H (5-31) U/L ALT 49 H (0-31) U/L Alkaline Phosphatase 53 (39-117) U/L Albumin 2.8 L (3.5-5.0) g/dL Assessment and Plan (1) UGI bleed: Status: Acute Plan 88 YF with hypercholesterolemia, CAD status post SYED to D1 of LAD in 2014, rheumatoid arthritis, osteopenia, status post pacemaker (2011 due to syncope), dementia who is brought in by EMS for evaluation of hematochezia. Labs showed H & H of 8.9 and 27.4 (decreased from 12.8 & 40.3 in Mar, 2024), elevated BUN Troponin 113 - repeat is pending Pt has UGI bleed most likely due to peptic ulcer disease, erosive esophagitis, Nadya-Faustin tear, upper GI AVM or Dieulafoy's RECOMMENDATIONS: 1. Transfuse 2 units of PRBC and check repeat CBC 2. IV PPI infusion 3. Emergent EGD after patient has been resuscitated with blood products. Pt is unable to give consent due to dementia. Per Sister Leigh Ann pt does not have any HCP and her family is in [place]. Procedure is declared emergent and can proceed without consent (Discussed with Risk Management) Procedures Date of Service Date of Service: 05/22/24
[2024-05-22] MEDS: iohexoL 350 MG/ML 100 ML INFUS..BTL IV (09:32)
--- NOTE | 2024-05-22 09:33 | PC.NURSE ---
Pt out of room for CT scan at this time with another assisting RN. Pt appears more alert and awake, not as weak as on arrival. Awaiting Protonix gtt from pharmacy at this time.
[2024-05-22 10:11] LABS: Reflex Lactate? Lactic Acid Added
--- NOTE | 2024-05-22 10:15 | PC.NURSE ---
Report given to SSS
[2024-05-22 10:40] LABS: MANUAL DIFF FLAG NO
[2024-05-22 10:49] LABS: Basophils Absolute Auto 0.1 X10*3/uL (0.0-0.2); Basophils Percent Auto 0.3 % (0-2); Hematocrit 26.3 % (37.0-47.0); Hemoglobin 8.2 g/dl (12.0-16.0); Imm Gran Abs Auto 0.18 X10*3/uL (0.00-0.03); Imm Gran Pct Auto 0.9 % (0.0-0.4); Lymphocytes Absolute Auto 1.8 X10*3/uL (1.2-4.9); Lymphocytes Percent Auto 8.7 % (20-40); Mean Corpuscular HGB Conc 31.2 g/dl (31.0-35.0); Mean Corpuscular Hemoglobin 23.6 pg (27.0-33.0); Mean Corpuscular Volume 75.8 fL (80.0-98.0); Mean Platelet Volume 11.6 fL (9.4-12.3); Monocytes Absolute Auto 0.9 X10*3/uL (0.1-1.2); Monocytes Percent Auto 4.5 % (2-11); Neutrophils Absolute Auto 17.5 x10*3/uL (2.0-8.3); Neutrophils Percent Auto 85.6 % (45-73); Platelet Count 177 X10*3/uL (160-400); Red Blood Count 3.47 X10*6/uL (4.20-5.50); Red Cell Distribution Width 14.7 % (11.0-16.0); White Blood Count 20.4 X10*3/uL (4.8-10.8)
--- NOTE | 2024-05-22 11:14 | PC.NURSE ---
Report received from LEONARDO Sanchez. Taken over care at this time.
[2024-05-22 11:20] LABS: Troponin-I High Sensitivity 117.6 ng/L (<3.5-17.0); ~Lactic Acid-LAB USE ONLY 5.5 mmol/L (0.5-2.0)
--- NOTE | 2024-05-22 11:36 | PC.NURSE ---
MD Mcgill aware of pt's critical labs of troponin and lactic. No new orders at this time.
--- NOTE | 2024-05-22 11:47 | PC.NURSE ---
SSS taken pt. to procedure, report given at bedside, informed that Protonix drip was not started d/t pt. only having two IV lines and is receiving blood and Levo drip.
--- NOTE | 2024-05-22 12:36 | PC.NURSE ---
Report given to LEONARDO Vázquez @ ext [phone]. Pt. to go to room 262.
[2024-05-22 12:38] LABS: Reflex Lactate? 2 Y
--- NOTE | 2024-05-22 12:56 | P.OP_ITS ---
Operative Note Operative Note Date of Service: 05/22/24 Narrative: Procedure Description: EGD Indication: hemorrhagic shock Anesthesia: GA FLEXIBLE TRANSORAL UPPER GASTROINTESTINAL ENDOSCOPY UPPER ENDOSCOPY Consent: Indications for the procedure and potential complications of bleeding, perforation, reaction to medications and missed diagnosis were discussed with the patient and informed consent was obtained. Instrument: Olympus GIF H 190 J mid size upper endoscope Monitoring: Vital signs and clinical assessment, continuous EKG monitoring, Pulse oximetry, Carbon Dioxide monitoring and blood pressure monitoring were done throughout the procedure. Procedure: The patient was placed in the left lateral decubitis position and pre-procedure medications were administered and a bite block was placed. The endoscope was inserted into the mouth and advanced under direct vision to the third part of duodenum. A careful inspection was made as the upper endoscope was withdrawn including a retroflexed examination of the proximal stomach; Findings and interventions are described below. Findings: Larynx:normal Esophagus: GE junction at 37 cm, diaphragm hiatus at 37 cm, LA grade D erosive esophagitis noted. Stomach: erosive gastritis at antrum . Grade 2 flap valve on retroflexed examination of the cardia. x1 ulcer at cardia noted about 14-16 mm in size with x 2 spots with clot noted. This was injected with ep inephrine and then x 2 ovesco clips were applied. There was persistent oozing noted around the second clip which was in the more proximal location. Hemospray was applied with good effect. Duodenum: Patchy duodenitis Intervention: ovesco clips for control of bleeding, hemospray Impression/Findings: erosive gastritis duodenitis erosive esophagitis ulcer -rod grade IIb PLAN: high dose IV PPI BID for 48 hrs then transition to PO carafate 1 g QID clears tonight if extubated and then advance diet as tolerated GERD precautions hold nsaids incl aspirin for 5 days if ongoing bleeding then IR consult.
[2024-05-22] MEDS: Pantoprazole Sodium 80 MG in 0.9 % Sodium Chloride 80 ML 10 MG IV (13:26)
--- NOTE | 2024-05-22 13:28 | PHA.MEDREC ---
Addendum entered by Darren Beard RPh 05/22/24 13:53: Reviewed by [facility] Original Note: Pharmacy Consult ? Medication Reconciliation Pharmacy has completed the medication reconciliation. Spoke with patients family at bedside and they were able to confirm the patients medications. She confirmed the patient took her medications yesterday.
[2024-05-22 13:38] LABS: MANUAL DIFF FLAG NO
[2024-05-22 13:44] LABS: Basophils Percent Auto 0.2 % (0-2); Hematocrit 33.6 % (37.0-47.0); Hemoglobin 11.2 g/dl (12.0-16.0); Imm Gran Abs Auto 0.09 X10*3/uL (0.00-0.03); Imm Gran Pct Auto 0.5 % (0.0-0.4); Lymphocytes Absolute Auto 1.9 X10*3/uL (1.2-4.9); Lymphocytes Percent Auto 11.2 % (20-40); Mean Corpuscular HGB Conc 33.3 g/dl (31.0-35.0); Mean Corpuscular Hemoglobin 25.7 pg (27.0-33.0); Mean Corpuscular Volume 77.1 fL (80.0-98.0); Monocytes Percent Auto 5.7 % (2-11); Neutrophils Absolute Auto 13.8 x10*3/uL (2.0-8.3); Neutrophils Percent Auto 82.4 % (45-73); Platelet Count 149 X10*3/uL (160-400); Red Blood Count 4.36 X10*6/uL (4.20-5.50); Red Cell Distribution Width 17.6 % (11.0-16.0); White Blood Count 16.7 X10*3/uL (4.8-10.8)
--- NOTE | 2024-05-22 15:03 | P.HPCC_ITS ---
History of Present Illness Date of Service: 05/22/24 Chief Complaint: Upper GI bleed 88-year-old lady, full code, with past medical history of dementia (oriented to self and place) CAD status post PCI-SYED to D1 of LAD in 2014, status post pacemaker placement, RA, osteopenia lives in a convent was brought into the hospital today after she was found to have blood in her bed and in the sink by one of the sisters. According to the proxy patient was okay until yesterday evening, had dinner following which she had a couple of loose bowel movements and was nauseated before going to the bed. Patient is unable to give any further history. In the ED her blood pressures were soft, hemoglobin dropped to 8.9 from 12.8 so was transfused 2 unit of PRBC in preparation for EGD and MICU consulted for admission. Underwent EGD which showed esophageal ulcer that was clipped. Review of Systems 2 Review of Systems: Unable to obtain detailed ROS due to underlying neurological condition PMFSH Past Medical History Medical History (Updated 05/22/24 @ 11:52 by Brayan Mcgill MD) Coronary artery disease Rheumatoid arthritis Dementia Osteoarthritis, knee Hypercholesterolemia Insomnia Pacemaker Exposure to COVID-19 virus Family History Family History (Updated 05/12/24 @ 12:52 by Amrit Musa MD) Unknown No problems noted. Surgical History Surgical History History of hysterectomy Social History Social History Household Members: Unknown / Unable to assess Housing: Unknown / Unable to assess Alcohol intake: never Patient Tobacco Use Status: Never used Tobacco Tobacco use type: Cigarette Smoked in Last 30 Days: No e-Cigarette/Vaping Use: Never Used Second Hand Smoke Exposure: No Use of substances other than those prescribed or required for medical reasons: Unable to respond Advance Directives: No Advance Directives Information Provided: No Do you have a plan to hurt others: No Plan Nutrition Risks: No Nutritional Risk Patient : No Current occupational status: retired Cognitive needs: Yes Hearing needs: Yes Vision needs: Yes Meds Allergies Allergy/AdvReac Type Severity Reaction Status Date / Time SEASONAL ALLERGIES Allergy Mild ITCHY EYES Uncoded 05/22/24 07:58 seasonal dust, pollen, etc. Allergy Unknown redness, Uncoded 05/22/24 07:58 coughing Active Medications: Current Medications Norepinephrine Bitartrate (Levophed) 8 mg in 250 mls @ 0 mls/hr IVCONT .Q0M [facility]; Protocol Last Admin: 05/22/24 08:15 Dose: 0.05 mcg/kg/min, 5.78 mls/hr Pantoprazole Sodium 80 mg/ (Sodium Chloride) 100 mls @ 10 mls/hr IV .Q10H [facility] Last Admin: 05/22/24 13:26 Dose: 8 mg/hr, 10 mls/hr Labetalol HCl (Labetalol Hcl 100 Mg/20 Ml Vial) 20 mg IVPUSH Q10M [facility]; Protocol PRN Reason: SBP > 160 Physical Exam 2 Vital Signs: Vital Signs: Last Vital Signs Temp 97.5 F 05/22/24 13:48 Pulse 72 05/22/24 14:00 Resp 18 05/22/24 14:00 BP 128/60 05/22/24 14:00 Pulse Ox 95 05/22/24 14:00 O2 Del Method Room Air 05/22/24 14:00 O2 Flow Rate 2 05/22/24 11:43 BMI result Body Mass Index 25.8 General: Elderly lady, Not in any acute distress, sitting in the bed calm and pleasant Nutritional Appearance: well nourished and overweight Eyes: appearance normal, both eyes and all related structures; Alignment and Position: alignment normal and position normal Neck: No lymphadenopathy, no thyromegaly Resp: bilateral air entry equal, no added sounds present Cardio: Regular rate, regular rhythm; Heart sounds: S1 normal heart sound present and S2 normal heart sound present GI: soft, nontender, no guarding, no hepatosplenomegaly : bladder normal to inspection, bladder normal to palpation, no renal angle tenderness Skin: no rashes or lesions noted and elasticity normal Neuro: oriented to self, oriented to place, and moves all extremities Results Labs 05/22/24 13:33 05/22/24 08:32 Labs: Laboratory Results - last 24 hr 05/22/24 05/22/24 05/22/24 08:06 08:32 08:45 MCV 74.7 L MCH 24.3 L MCHC 32.5 RDW 14.8 Plt Count 201 MPV 11.0 Immature Gran % (Auto) 0.9 H Neut % (Auto) 85.3 H Lymph % (Auto) 8.2 L [place] % (Auto) 5.4 Eos % (Auto) 0.0 Baso % (Auto) 0.2 Lymph # (Auto) 1.6 [place] # (Auto) 1.1 Eos # (Auto) 0.0 Baso # (Auto) 0.0 Abs Immat Gran (auto) 0.18 H Absolute Neuts (auto) 16.8 H Absolute Nucleated RBC 0.000 Nucleated RBC % (auto) 0.0 PT 12.8 H INR 1.1 APTT 21.6 L VBG pH 7.37 VBG pCO2 26 VBG pO2 103 VBG HCO3 15 L VBG O2 Saturation 99.0 VBG Base Excess -8.6 Anion Gap 15 Estim Creat Clear Calc 42.2 Estimated GFR > 60 Random Glucose 162 H Lactic Acid 5.4 H* Lactic Acid F/U @ 2Hr Lactic Acid F/U @ 4Hr Calcium 8.2 L D Total Bilirubin 0.5 Direct Bilirubin 0.2 AST 39 H ALT 49 H Alkaline Phosphatase 53 Total Protein 5.3 L Albumin 2.8 L Stool Occult Blood NEGATIVE Blood Type Antibody Screen Crossmatch 05/22/24 05/22/24 05/22/24 08:53 10:33 13:33 MCV 75.8 L Cancelled MCH 23.6 L MCHC 31.2 RDW 14.7 Plt Count 177 MPV 11.6 Immature Gran % (Auto) 0.9 H Neut % (Auto) 85.6 H Lymph % (Auto) 8.7 L [place] % (Auto) 4.5 Eos % (Auto) 0.0 Baso % (Auto) 0.3 Lymph # (Auto) 1.8 [place] # (Auto) 0.9 Eos # (Auto) 0.0 Baso # (Auto) 0.1 Abs Immat Gran (auto) 0.18 H Absolute Neuts (auto) 17.5 H Absolute Nucleated RBC 0.000 Nucleated RBC % (auto) 0.0 PT INR APTT VBG pH VBG pCO2 VBG pO2 VBG HCO3 VBG O2 Saturation VBG Base Excess Anion Gap Estim Creat Clear Calc Estimated GFR Random Glucose Lactic Acid Lactic Acid F/U @ 2Hr 5.5 H* Lactic Acid F/U @ 4Hr Calcium Total Bilirubin Direct Bilirubin AST ALT Alkaline Phosphatase Total Protein Albumin Stool Occult Blood Blood Type A Negative Antibody Screen NEGATIVE Crossmatch See Detail 05/22/24 05/22/24 05/22/24 13:33 13:33 13:33 MCV 77.1 L MCH Cancelled 25.7 L MCHC Cancelled 33.3 RDW Cancelled Plt Count MPV Immature Gran % (Auto) Neut % (Auto) Lymph % (Auto) [place] % (Auto) Eos % (Auto) Baso % (Auto) Lymph # (Auto) [place] # (Auto) Eos # (Auto) Baso # (Auto) Abs Immat Gran (auto) Absolute Neuts (auto) Absolute Nucleated RBC Nucleated RBC % (auto) PT INR APTT VBG pH VBG pCO2 VBG pO2 VBG HCO3 VBG O2 Saturation VBG Base Excess Anion Gap Estim Creat Clear Calc Estimated GFR Random Glucose Lactic Acid Lactic Acid F/U @ 2Hr Lactic Acid F/U @ 4Hr Calcium Total Bilirubin Direct Bilirubin AST ALT Alkaline Phosphatase Total Protein Albumin Stool Occult Blood Blood Type Antibody Screen Crossmatch 05/22/24 05/22/24 05/22/24 13:33 13:33 13:33 MCV MCH MCHC RDW 17.6 H Plt Count Cancelled 149 L MPV Cancelled 11.0 Immature Gran % (Auto) 0.5 H Neut % (Auto) 82.4 H Lymph % (Auto) 11.2 L [place] % (Auto) 5.7 Eos % (Auto) 0.0 Baso % (Auto) 0.2 Lymph # (Auto) 1.9 [place] # (Auto) 1.0 Eos # (Auto) 0.0 Baso # (Auto) 0.0 Abs Immat Gran (auto) 0.09 H Absolute Neuts (auto) 13.8 H Absolute Nucleated RBC Cancelled Nucleated RBC % (auto) PT INR APTT VBG pH VBG pCO2 VBG pO2 VBG HCO3 VBG O2 Saturation VBG Base Excess Anion Gap Estim Creat Clear Calc Estimated GFR Random Glucose Lactic Acid Lactic Acid F/U @ 2Hr Lactic Acid F/U @ 4Hr Calcium Total Bilirubin Direct Bilirubin AST ALT Alkaline Phosphatase Total Protein Albumin Stool Occult Blood Blood Type Antibody Screen Crossmatch 05/22/24 05/22/24 13:33 13:33 MCV MCH MCHC RDW Plt Count MPV Immature Gran % (Auto) Neut % (Auto) Lymph % (Auto) [place] % (Auto) Eos % (Auto) Baso % (Auto) Lymph # (Auto) [place] # (Auto) Eos # (Auto) Baso # (Auto) Abs Immat Gran (auto) Absolute Neuts (auto) Absolute Nucleated RBC 0.000 Nucleated RBC % (auto) Cancelled 0.0 PT INR APTT VBG pH VBG pCO2 VBG pO2 VBG HCO3 VBG O2 Saturation VBG Base Excess Anion Gap Estim Creat Clear Calc Estimated GFR Random Glucose Lactic Acid Lactic Acid F/U @ 2Hr Lactic Acid F/U @ 4Hr 3.0 H* Calcium Total Bilirubin Direct Bilirubin AST ALT Alkaline Phosphatase Total Protein Albumin Stool Occult Blood Blood Type Antibody Screen Crossmatch Imaging Radiologist's Impressions: Impressions Chest X-Ray 05/22/24 08:10 IMPRESSION: No active pulmonary disease. Electronically signed by: Tom Dumont MD 05/22/2024 10:19 AM EDT RP Abdomen/Pelvis CT 05/22/24 09:24 IMPRESSION: 1. No evidence of contrast extravasation in the GI tract to suggest active GI bleeding. 2. Moderate hiatal hernia. Electronically signed by: Jose Langley MD 05/22/2024 10:18 AM EDT RP Cervical Spine CT 05/22/24 09:24 IMPRESSION: No evidence of fracture of the cervical spine. Degenerative changes as described. Electronically signed by: Jose Langley MD 05/22/2024 10:10 AM EDT RP Head CT 05/22/24 09:24 IMPRESSION: 1. No acute intracranial abnormality. No acute fractures. 2. Chronic changes as discussed Electronically signed by: Tom Dumont MD 05/22/2024 10:16 AM EDT RP Assessment and Plan (1) Non-rheumatic aortic stenosis: Status: Acute (2) Coronary artery disease: Qualifiers: Coronary Disease-Associated Artery/Lesion type: [place] artery [place] vs. transplanted heart: [place] heart Associated angina: without angina Q ualified Code(s): I25.10 - Atherosclerotic heart disease of [place] coronary artery without angina pectoris Status: Acute (3) LBBB (left bundle branch block): Status: Acute (4) Peripheral vascular disease: Status: Acute (5) Hemorrhagic shock: Status: Acute (6) Hypercholesterolemia: Status: Acute (7) UGI bleed: Status: Acute (8) UGIB (upper gastrointestinal bleed): Status: Acute Plan Upper GI bleed: Underwent upper GI endoscopy which showed lower esophageal ulcers which was clipped Continue IV pantoprazole for 48 hours We will add oral sucralfate Okay to start on clear liquids as per Gastroenterology CT abdomen did not show any active contrast extravasation Acute blood loss anemia: Baseline hemoglobin around 12.8, presented with a hemoglobin of 8.9 Received 2 units of PRBC due to hypotension Continue monitoring CBC Q 8 for 24 hours Leukocytosis: Possibly reactionary to upper GI bleed, improving Acute Lactic acidosis: Secondary to upper GI bleed Lactate trending down with a resuscitation, down to 3 CAD: Status post PCI in 2014 to D1 branch of LAD Not on any antiplatelets at home Dementia: Currently at her baseline CT head and cervical spine upon admission did not show any acute intracranial pathology Lines: Peripheral PureWick Prophylaxis: SCD, pantoprazole Total time managing care of this patient today: 60 minutes.
[2024-05-22] MEDS: Sucralfate Oral Suspension 1 GM/10 ML ORAL.SUSP PO ×2 (16:05→20:49)
[2024-05-22 20:07] LABS: Hemoglobin 11.1 g/dl (12.0-16.0); PLT CLUMP 1
[2024-05-22 20:09] LABS: Hematocrit 32.7 % (37.0-47.0); Mean Corpuscular HGB Conc 33.9 g/dl (31.0-35.0); Mean Corpuscular Hemoglobin 26.4 pg (27.0-33.0); Mean Corpuscular Volume 77.7 fL (80.0-98.0); Mean Platelet Volume 11.3 fL (9.4-12.3); Red Blood Count 4.21 X10*6/uL (4.20-5.50); Red Cell Distribution Width 17.5 % (11.0-16.0)
[2024-05-22 20:18] LABS: White Blood Count 18.7 X10*3/uL (4.8-10.8)
[2024-05-22 20:49] LABS: Platelet Count 136 X10*3/uL (160-400)
[2024-05-22 21:57] LABS: Glucose, Whole Blood 98 mg/dL (60-115)
--- NOTE | 2024-05-23 00:21 | PC.NURSE ---
[id number] notified of pt pulling out both IV's, refused to allow IV to be reinserted at this time. Pt agitated, removed potline monitor. Unable to redirect due to confusion. Camera placed in room, pt continues to climb out of bed and attempt to ambulate in room. Sitter placed in room will continue to monitor.
[2024-05-23 02:50] VITALS: BP 138/64; PULSE 68; RESP 18; TEMP 36.5; O2SAT 97
[2024-05-23] MEDS: Pantoprazole Sodium 80 MG in 0.9 % Sodium Chloride 80 ML 10 MG IV ×2 (05:00→15:22)
[2024-05-23 06:00] VITALS: BMI 25.6
[2024-05-23 07:04] VITALS: BP 108/51; PULSE 75; RESP 18; TEMP 36.8; O2SAT 98
[2024-05-23] MEDS: Cholecalciferol (Vitamin D3) 25 MCG TABLET 50 MCG PO (08:30)
[2024-05-23] MEDS: Sucralfate Oral Suspension 1 GM/10 ML ORAL.SUSP PO ×4 (08:30→21:08)
[2024-05-23] MEDS: Ezetimibe 10 MG TABLET PO (08:30)
--- NOTE | 2024-05-23 09:22 | HO.POSTANES ---
Post Anesthesia Evaluation Post Anesthesia Evaluation Date of Service: 05/23/24 Vital Signs: Vital Signs Temp Pulse Resp BP Pulse Ox O2 Del Method 05/23/24 07:04 98.2 F 75 18 108/51 L 98 Room Air 05/23/24 02:50 97.7 F 68 18 138/64 97 Room Air Anesthesia: General Mental Status: Awake Pain Control: Satisfactory Nausea/Vomiting: None Hydration: Adequate Anesthesia-Related Issues: No Anes. Related Issues
--- NOTE | 2024-05-23 09:48 | HO.PM.IMPN ---
Subjective Subjective Date of Service: 05/23/24 Interval History: no complaints Physical Exam Vital Signs: Vital Signs: Last Vital Signs Temp 98.2 F 05/23/24 07:04 Pulse 75 05/23/24 07:04 Resp 18 05/23/24 07:04 BP 108/51 L 05/23/24 07:04 Pulse Ox 98 05/23/24 07:04 O2 Del Method Room Air 05/23/24 07:04 O2 Flow Rate 2 05/22/24 11:43 BMI result Body Mass Index 25.6 General: alert, no acute distress Resp: CTA bilateral, no accessory muscles used CVS: S1,S2,RRR GI: soft, non tender, non distended Neuro: motor grossly intact, alert Psych: appropriate affect, appropriate insight Objective Data Active Medications Ezetimibe (Ezetimibe 10 Mg Tablet) 10 mg PO DAILY [facility] Last Admin: 05/23/24 08:30 Dose: 10 mg Documented By: MERON Pantoprazole Sodium 80 mg/ (Sodium Chloride) 100 mls @ 10 mls/hr IV .Q10H [facility] Last Admin: 05/23/24 05:00 Dose: 8 mg/hr, 10 mls/hr Documented By: KAILEE Ondansetron HCl (Ondansetron Hcl 4 Mg/2 Ml Vial) 4 mg IVPUSH Q4H PRN PRN Reason: Nausea and Vomiting Last Admin: 05/22/24 16:05 Dose: 4 mg Documented By: ANTONY Sucralfate (Sucralfate Oral Suspension 1 Gm/10 Ml Oral.Susp) 1 gm PO QIDACHS [facility] Last Admin: 05/23/24 08:30 Dose: 1 gm Documented By: MERON Vitamin D (Cholecalciferol (Vitamin D3) 25 Mcg Tablet) 50 mcg PO DAILY [facility] Last Admin: 05/23/24 08:30 Dose: 50 mcg Documented By: MERON Labs 05/22/24 19:35 05/22/24 08:32 Labs: Laboratory Results - last 24 hr 05/22/24 05/22/24 05/22/24 08:53 10:33 13:33 MCV 75.8 L Cancelled MCH 23.6 L MCHC 31.2 RDW 14.7 Plt Count 177 MPV 11.6 Immature Gran % (Auto) 0.9 H Neut % (Auto) 85.6 H Lymph % (Auto) 8.7 L Navarro % (Auto) 4.5 Eos % (Auto) 0.0 Baso % (Auto) 0.3 Lymph # (Auto) 1.8 Navarro # (Auto) 0.9 Eos # (Auto) 0.0 Baso # (Auto) 0.1 Abs Immat Gran (auto) 0.18 H Absolute Neuts (auto) 17.5 H Absolute Nucleated RBC 0.000 Nucleated RBC % (auto) 0.0 POC Glucose Lactic Acid F/U @ 2Hr 5.5 H* Lactic Acid F/U @ 4Hr Blood Type A Negative Antibody Screen NEGATIVE Crossmatch See Detail 05/22/24 05/22/24 05/22/24 13:33 13:33 13:33 MCV 77.1 L MCH Cancelled 25.7 L MCHC Cancelled 33.3 RDW Cancelled Plt Count MPV Immature Gran % (Auto) Neut % (Auto) Lymph % (Auto) Navarro % (Auto) Eos % (Auto) Baso % (Auto) Lymph # (Auto) Navarro # (Auto) Eos # (Auto) Baso # (Auto) Abs Immat Gran (auto) Absolute Neuts (auto) Absolute Nucleated RBC Nucleated RBC % (auto) POC Glucose Lactic Acid F/U @ 2Hr Lactic Acid F/U @ 4Hr Blood Type Antibody Screen Crossmatch 05/22/24 05/22/24 05/22/24 13:33 13:33 13:33 MCV MCH MCHC RDW 17.6 H Plt Count Cancelled 149 L MPV Cancelled 11.0 Immature Gran % (Auto) 0.5 H Neut % (Auto) 82.4 H Lymph % (Auto) 11.2 L Navarro % (Auto) 5.7 Eos % (Auto) 0.0 Baso % (Auto) 0.2 Lymph # (Auto) 1.9 Navarro # (Auto) 1.0 Eos # (Auto) 0.0 Baso # (Auto) 0.0 Abs Immat Gran (auto) 0.09 H Absolute Neuts (auto) 13.8 H Absolute Nucleated RBC Cancelled Nucleated RBC % (auto) POC Glucose Lactic Acid F/U @ 2Hr Lactic Acid F/U @ 4Hr Blood Type Antibody Screen Crossmatch 05/22/24 05/22/2425 13:33 13:33 19:35 MCV 77.7 L MCH 26.4 L MCHC 33.9 RDW 17.5 H Plt Count 136 L MPV 11.3 Immature Gran % (Auto) Neut % (Auto) Lymph % (Auto) Navarro % (Auto) Eos % (Auto) Baso % (Auto) Lymph # (Auto) Navarro # (Auto) Eos # (Auto) Baso # (Auto) Abs Immat Gran (auto) Absolute Neuts (auto) Absolute Nucleated RBC 0.000 0.000 Nucleated RBC % (auto) Cancelled 0.0 0.0 POC Glucose Lactic Acid F/U @ 2Hr Lactic Acid F/U @ 4Hr 3.0 H* Blood Type Antibody Screen Crossmatch 05/22/24 21:16 MCV MCH MCHC RDW Plt Count MPV Immature Gran % (Auto) Neut % (Auto) Lymph % (Auto) Navarro % (Auto) Eos % (Auto) Baso % (Auto) Lymph # (Auto) Navarro # (Auto) Eos # (Auto) Baso # (Auto) Abs Immat Gran (auto) Absolute Neuts (auto) Absolute Nucleated RBC Nucleated RBC % (auto) POC Glucose 98 Lactic Acid F/U @ 2Hr Lactic Acid F/U @ 4Hr Blood Type Antibody Screen Crossmatch Assessment and Plan (1) Coronary artery disease: Status: Acute Plan 88F PMH coronary disease status post drug-eluting stent in 2014, status post pacer, rheumatoid arthritis presented with hematochezia. Noted to be anemic in ED and had low blood pressures so was admitted to ICU, underwent EGD that showed bleeding esophageal ulcer which was clipped. Patient had downgraded to medical floor. Acute blood loss anemia due to esophageal ulcer Status post EGD and clipping on 05/22/2024 Hemoglobin stable, continue PPI and monitor Holding aspirin History of coronary disease Holding aspirin, continue statin DVT prophylaxis-mechanical due to GI bleed Full Code reason for continued hospitalization: Monitoring post high-risk bleed Quality Stroke Does the patient have a stroke diagnosis?: No VTE Prior VTE?: No VTE Risk Level:: Medical - low VTE Device Contraindication: N/A - Device Ordered VTE Drug Contraindication: Treatment Not Tolerated
[2024-05-23 10:50] VITALS: BP 101/57; PULSE 67; RESP 18; TEMP 36.7; O2SAT 99
--- NOTE | 2024-05-23 11:44 | MHC.CM.PN ---
PT RESIDES AT THE [facility] ON [facility] IN [place] WHERE OTHER SISTERS PROVIDE ALL OF HER CARE. SISTER SONIDO, WAS BEDSIDE TODAY EXPRESSING CONCERNS ABOUT HER ABILITY TO CARE FOR THE PT IN HER CURRENT CONDITIONS SHE REPORTS THE PT FREQUENTLY REFUSES CARE, WHICH SHE CAN MANAGE, BUT ALSO NOTES THE PT FELL RECENTLY AT LEAST ONCE AND POSSIBLE MORE. PER DISCUSSION, SHE HOPES FOR A PSYCH CONSULT FOR MED RECOMMENDATIONS, A PT EVAL TO DETERMINE IF PT WOULD BE APPROPRIATE FOR STR, AND HOME SERVICES FOR NURSING AND PT IF STR IS NOT AN OPTION. SISTER SONIDO: [phone] PCP: DAYANARA HU IMM DELIVERED
--- NOTE | 2024-05-23 14:43 | HO.WOUND ---
Wound Consult: Initial 88yr old?female admitted to [facility] [place] [place] on [place] - See progress notes and H&P for detailed history.? Wound consult placed for Wound discussed with nurse unaware of wounds - chart review completed appears some concern for redness to coccyx and Scalp abrasion. Patient agreeable to assessment and photo documentation.? Scalp assessed no injury noted - there was dried bloody drainage to the right ear area - cleaned and removed dried drainage no wound or abrasion able to be observed. no topical dressings needed at this time given unable to see wound at this time. The coccyx was assessed for mild pink tissue remains intact and blanchable tissue. Patient denies incontinence at this time - may use barrier cream preventative.
[2024-05-23 15:31] VITALS: BP 114/75; PULSE 71; RESP 16; TEMP 36.6; O2SAT 99
[2024-05-23 19:56] VITALS: BP 156/69; PULSE 74; RESP 16; TEMP 36.8; O2SAT 97
[2024-05-23] MEDS: QUEtiapine Fumarate 25 MG TABLET PO (21:08)
[2024-05-23 23:38] VITALS: BP 150/131; PULSE 77; RESP 18; TEMP 37.1; O2SAT 97
[2024-05-24] MEDS: Pantoprazole Sodium 80 MG in 0.9 % Sodium Chloride 80 ML 10 MG IV ×3 (00:42→22:11)
[2024-05-24 04:00] VITALS: BP 147/66; PULSE 80; RESP 18; TEMP 36.8; O2SAT 98
[2024-05-24 05:58] VITALS: BMI 25.1
[2024-05-24 07:02] VITALS: BP 116/58; PULSE 55; RESP 17; TEMP 36.2; O2SAT 96
[2024-05-24 08:02] LABS: Hematocrit 27.4 % (37.0-47.0); Mean Corpuscular HGB Conc 32.8 g/dl (31.0-35.0); Mean Corpuscular Hemoglobin 25.7 pg (27.0-33.0); Mean Corpuscular Volume 78.3 fL (80.0-98.0); Mean Platelet Volume 11.2 fL (9.4-12.3); Platelet Count 159 X10*3/uL (160-400); Red Cell Distribution Width 17.8 % (11.0-16.0); White Blood Count 9.2 X10*3/uL (4.8-10.8)
[2024-05-24 08:26] LABS: Anion Gap 8 (12-20); Blood Urea Nitrogen 15 mg/dL (9-16); Calcium 8.3 mg/dL (8.4-10.2); Carbon Dioxide 26 mmol/L (22-29); Chloride 110 mmol/L (96-108); Creatinine Clr Calc Pharmacy 44.1; Estimated Glomerular Filt Rate > 60; Glucose Random 89 mg/dL (60-115); Potassium 3.7 mmol/L (3.3-5.1); Sodium 140 mmol/L (135-145)
--- NOTE | 2024-05-24 09:56 | P.PNIM_ITS ---
Subjective Subjective Date of Service: 05/24/24 Interval History: no complaints Physical Exam 2 Vital Signs: Vital Signs: Last Vital Signs Temp 97.2 F 05/24/24 07:02 Pulse 55 05/24/24 07:02 Resp 17 05/24/24 07:02 BP 116/58 L 05/24/24 07:02 Pulse Ox 96 05/24/24 07:02 O2 Del Method Room Air 05/24/24 07:02 O2 Flow Rate 2 05/22/24 11:43 BMI result Body Mass Index 25.1 General: alert, no acute distress Resp: CTA bilateral, no accessory muscles used CVS: S1,S2,RRR GI: soft, non tender, non distended Neuro: motor grossly intact, alert Psych: appropriate affect, appropriate insight Objective Data Active Medications Ezetimibe (Ezetimibe 10 Mg Tablet) 10 mg PO DAILY [facility] Last Admin: 05/23/24 08:30 Dose: 10 mg Documented By: MERON Pantoprazole Sodium 80 mg/ (Sodium Chloride) 100 mls @ 10 mls/hr IV .Q10H [facility] Last Admin: 05/24/24 00:42 Dose: 8 mg/hr, 10 mls/hr Documented By: ANASTACIA Ondansetron HCl (Ondansetron Hcl 4 Mg/2 Ml Vial) 4 mg IVPUSH Q4H PRN PRN Reason: Nausea and Vomiting Last Admin: 05/22/24 16:05 Dose: 4 mg Documented By: ANTONY Quetiapine Fumarate (Quetiapine Fumarate 25 Mg Tablet) 25 mg PO BEDTIME [facility] Last Admin: 05/23/24 21:08 Dose: 25 mg Documented By: KAILEE Sucralfate (Sucralfate Oral Suspension 1 Gm/10 Ml Oral.Susp) 1 gm PO QIDACHS [facility] Last Admin: 05/23/24 21:08 Dose: 1 gm Documented By: KAILEE Vitamin D (Cholecalciferol (Vitamin D3) 25 Mcg Tablet) 50 mcg PO DAILY [facility] Last Admin: 05/23/24 08:30 Dose: 50 mcg Documented By: MERON Labs 05/24/24 07:10 05/24/24 07:10 Labs: Laboratory Results - last 24 hr 05/24/24 07:10 MCV 78.3 L MCH 25.7 L MCHC 32.8 RDW 17.8 H Plt Count 159 L MPV 11.2 Absolute Nucleated RBC 0.000 Nucleated RBC % (auto) 0.0 Anion Gap 8 L Estim Creat Clear Calc 44.1 Estimated GFR > 60 Random Glucose 89 Calcium 8.3 L Microbiology Microbiology Results: Microbiology 05/22/24 08:32 Blood Culture - Preliminary Blood - Venous No growth after 24 hours. 05/22/24 08:06 Blood Culture - Preliminary Blood - Venous No growth after 24 hours. Assessment and Plan (1) Coronary artery disease: Status: Acute Plan 88F PMH coronary disease status post drug-eluting stent in 2014, status post pacer, rheumatoid arthritis presented with hematochezia. Noted to be anemic in ED and had low blood pressures so was admitted to ICU, underwent EGD that showed bleeding esophageal ulcer which was clipped. Patient had downgraded to medical floor. Acute blood loss anemia due to esophageal ulcer Status post EGD and clipping on 05/22/2024 Hemoglobin dropped form 11 to 9 today, continue PPI - change to po tomorrow, and monitor Holding aspirin History of coronary disease Holding aspirin, continue statin DVT prophylaxis-mechanical due to GI bleed Full Code reason for continued hospitalization: Monitoring post high-risk bleed Quality Stroke Does the patient have a stroke diagnosis?: No VTE Prior VTE?: No VTE Risk Level:: Medical - low VTE Device Contraindication: N/A - Device Ordered VTE Drug Contraindication: Treatment Not Tolerated
[2024-05-24] MEDS: Cholecalciferol (Vitamin D3) 25 MCG TABLET 50 MCG PO (10:24)
[2024-05-24] MEDS: Ezetimibe 10 MG TABLET PO (10:24)
[2024-05-24] MEDS: Sucralfate Oral Suspension 1 GM/10 ML ORAL.SUSP PO ×3 (10:24→21:38)
[2024-05-24 11:06] VITALS: BP 123/59; PULSE 64; RESP 18; TEMP 36.6; O2SAT 95
[2024-05-24 15:27] VITALS: BP 118/55; PULSE 63; RESP 19; TEMP 36.5; O2SAT 98
[2024-05-24 20:00] VITALS: BP 134/60; PULSE 79; RESP 16; TEMP 36.8; O2SAT 97
[2024-05-24] MEDS: QUEtiapine Fumarate 25 MG TABLET PO (21:38)
[2024-05-24 23:44] VITALS: BP 137/63; PULSE 80; RESP 17; TEMP 37.1; O2SAT 99
[2024-05-25 03:55] VITALS: BP 142/74; PULSE 78; RESP 18; TEMP 36.8; O2SAT 97
[2024-05-25 06:00] VITALS: BMI 25.4
[2024-05-25] MEDS: Omeprazole 40 MG CAPSULE.DR PO ×3 (06:18→17:31)
[2024-05-25 07:42] VITALS: BP 109/55; PULSE 68; RESP 12; TEMP 36.6; O2SAT 97
[2024-05-25 08:18] LABS: Hematocrit 29.7 % (37.0-47.0); Hemoglobin 9.9 g/dl (12.0-16.0); Mean Corpuscular HGB Conc 33.3 g/dl (31.0-35.0); Mean Corpuscular Hemoglobin 26.4 pg (27.0-33.0); Mean Corpuscular Volume 79.2 fL (80.0-98.0); Mean Platelet Volume 10.6 fL (9.4-12.3); Platelet Count 169 X10*3/uL (160-400); Red Blood Count 3.75 X10*6/uL (4.20-5.50); Red Cell Distribution Width 17.8 % (11.0-16.0); White Blood Count 10.2 X10*3/uL (4.8-10.8)
[2024-05-25] MEDS: Sucralfate Oral Suspension 1 GM/10 ML ORAL.SUSP PO ×4 (08:21→20:34)
[2024-05-25] MEDS: Ezetimibe 10 MG TABLET PO (08:21)
[2024-05-25] MEDS: Cholecalciferol (Vitamin D3) 25 MCG TABLET 50 MCG PO (08:21)
[2024-05-25 08:31] LABS: Anion Gap 11 (12-20); Blood Urea Nitrogen 16 mg/dL (9-16); Calcium 8.5 mg/dL (8.4-10.2); Carbon Dioxide 25 mmol/L (22-29); Chloride 107 mmol/L (96-108); Creatinine Clr Calc Pharmacy 44.4; Estimated Glomerular Filt Rate > 60; Glucose Random 90 mg/dL (60-115); Potassium 3.5 mmol/L (3.3-5.1); Sodium 139 mmol/L (135-145)
--- NOTE | 2024-05-25 08:57 | P.PNIM_ITS ---
Subjective Subjective Date of Service: 05/25/24 Interval History: no complaints Physical Exam 2 Vital Signs: Vital Signs: Last Vital Signs Temp 97.8 F 05/25/24 07:42 Pulse 68 05/25/24 07:42 Resp 12 05/25/24 07:42 BP 109/55 L 05/25/24 07:42 Pulse Ox 97 05/25/24 07:42 O2 Del Method Room Air 05/25/24 07:42 O2 Flow Rate 2 05/22/24 11:43 BMI result Body Mass Index 25.4 General: alert, no acute distress Resp: CTA bilateral, no accessory muscles used CVS: S1,S2,RRR GI: soft, non tender, non distended Neuro: motor grossly intact, alert Psych: appropriate affect, appropriate insight Objective Data Active Medications Ezetimibe (Ezetimibe 10 Mg Tablet) 10 mg PO DAILY [facility] Last Admin: 05/25/24 08:21 Dose: 10 mg Documented By: CHYNA Omeprazole (Omeprazole 40 Mg Capsule.Dr) 40 mg PO BID@0630,1630 [facility] Last Admin: 05/25/24 06:27 Dose: 40 mg Documented By: GOOD Ondansetron HCl (Ondansetron Hcl 4 Mg/2 Ml Vial) 4 mg IVPUSH Q4H PRN PRN Reason: Nausea and Vomiting Last Admin: 05/22/24 16:05 Dose: 4 mg Documented By: ANTONY Quetiapine Fumarate (Quetiapine Fumarate 25 Mg Tablet) 25 mg PO BEDTIME [facility] Last Admin: 05/24/24 21:38 Dose: 25 mg Documented By: GOOD Sucralfate (Sucralfate Oral Suspension 1 Gm/10 Ml Oral.Susp) 1 gm PO QIDACHS [facility] Last Admin: 05/25/24 08:21 Dose: 1 gm Documented By: CHYNA Vitamin D (Cholecalciferol (Vitamin D3) 25 Mcg Tablet) 50 mcg PO DAILY [facility] Last Admin: 05/25/24 08:21 Dose: 50 mcg Documented By: CHYNA Labs 05/25/24 07:14 05/25/24 07:14 Labs: Laboratory Results - last 24 hr 05/25/24 07:14 MCV 79.2 L MCH 26.4 L MCHC 33.3 RDW 17.8 H Plt Count 169 MPV 10.6 Absolute Nucleated RBC 0.000 Nucleated RBC % (auto) 0.0 Anion Gap 11 L Estim Creat Clear Calc 44.4 Estimated GFR > 60 Random Glucose 90 Calcium 8.5 Microbiology Microbiology Results: Microbiology 05/22/24 08:32 Blood Culture - Preliminary Blood - Venous No growth after 48 hours. 05/22/24 08:06 Blood Culture - Preliminary Blood - Venous No growth after 48 hours. Assessment and Plan (1) Coronary artery disease: Status: Acute Plan 88F PM coronary disease status post drug-eluting stent in 2014, status post pacer, rheumatoid arthritis presented with hematochezia. Noted to be anemic in ED and had low blood pressures so was admitted to ICU, underwent EGD that showed bleeding esophageal ulcer which was clipped. Patient had downgraded to medical floor. Acute blood loss anemia due to esophageal ulcer Status post EGD and clipping on 05/22/2024 Hemoglobin dropped from 11 to 9, but has remained stable since, continue PPI - changed to po Holding aspirin until 05/28/24 History of coronary disease Holding aspirin, continue statin DVT prophylaxis-mechanical due to GI bleed Full Code reason for continued hospitalization: Monitoring post high-risk bleed Quality Stroke Does the patient have a stroke diagnosis?: No VTE Prior VTE?: No VTE Risk Level:: Medical - low VTE Device Contraindication: N/A - Device Ordered VTE Drug Contraindication: Treatment Not Tolerated
[2024-05-25 11:40] VITALS: BP 123/60; PULSE 74; RESP 16; TEMP 36.7; O2SAT 97
[2024-05-25 15:11] VITALS: BP 101/66; PULSE 68; RESP 12; TEMP 36.6; O2SAT 97
[2024-05-25 19:53] VITALS: BP 102/50; PULSE 76; RESP 16; TEMP 36.8; O2SAT 96
[2024-05-25] MEDS: QUEtiapine Fumarate 25 MG TABLET PO (20:34)
[2024-05-25 23:17] VITALS: BP 94/44; PULSE 83; RESP 16; TEMP 36.6; O2SAT 95
[2024-05-26 05:00] VITALS: PULSE 72; RESP 17; O2SAT 97
[2024-05-26] MEDS: Omeprazole 40 MG CAPSULE.DR PO (05:49)
[2024-05-26 06:00] VITALS: BMI 25.5
[2024-05-26 06:48] VITALS: BP 117/58; PULSE 67; RESP 18; TEMP 36.9; O2SAT 98
[2024-05-26 08:25] VITALS: PULSE 78
[2024-05-26] MEDS: Ezetimibe 10 MG TABLET PO (09:13)
[2024-05-26] MEDS: Cholecalciferol (Vitamin D3) 25 MCG TABLET 50 MCG PO (09:13)
[2024-05-26] MEDS: Sucralfate Oral Suspension 1 GM/10 ML ORAL.SUSP PO ×2 (09:14→11:54)
--- NOTE | 2024-05-26 10:36 | PM.DS ---
DS: Providers Provider Date of Service: 05/26/24 Date of admission: 05/22/24 11:16 Date of discharge: 05/26/24 Primary care physician: Jordon Nelson MD Consults: 05/22/24 15:14 Consult to Wound Care Routine Reason for consultation: wound DS: Diagnosis Discharge Diagnosis (1) Coronary artery disease: Status: Acute DS: Summary Hospital Course Hospital Course: from initial hpi: 88-year-old lady, full code, with past medical history of dementia (oriented to self and place) CAD status post PCI-SYED to D1 of LAD in 2014, status post pacemaker placement, RA, osteopenia [facility] [place] [facility] was brought into the hospital today after she was found to have blood in her bed and in the sink by one of the sisters. According to the proxy patient was okay until yesterday evening, had dinner following which she had a couple of loose bowel movements and was nauseated before going to the bed. Patient is unable to give any further history. In the ED her blood pressures were soft, hemoglobin dropped to 8.9 from 12.8 so was transfused 2 unit of PRBC in preparation for EGD and MICU consulted for admission. Underwent EGD which showed esophageal ulcer that was clipped. hospital course: Patient was admitted for acute blood loss anemia due to esophageal ulcer. Underwent EGD with clipping on 05/22/2024. Hemoglobin need year was 8.2. Received 2 units PRBC, hemoglobin stabilized between 9 and 10. Had no further bleeding. Was started on PPI and Carafate. Was seen by physical therapy recommended short-term rehab to which patient will be discharged. She was expected require less than 30 days. She will follow up with Gastroenterology as outpatient. Will restart aspirin on 05/29/2024. For history of coronary artery disease was continued on statin. Aspirin to be restarted as mentioned. Time Attestation Discharge Coordination Time (in mins): 37 Quality: Safe Use of Opioids Does Pt have an Active Cancer Diagnosis on the Problem List?: No Quality: Stroke Does the patient have a stroke diagnosis?: No Physical Exam Vital Signs: Vital Signs: Last Vital Signs Temp 98.4 F 05/26/24 06:48 Pulse 78 05/26/24 08:25 Resp 18 05/26/24 06:48 BP 117/58 L 05/26/24 06:48 Pulse Ox 98 05/26/24 06:48 O2 Del Method Room Air 05/26/24 06:48 O2 Flow Rate 2 05/22/24 11:43 BMI result Body Mass Index 25.5 General: alert, no acute distress Resp: CTA bilateral, no accessory muscles used CVS: S1,S2,RRR GI: soft, non tender, non distended Neuro: motor grossly intact, alert Psych: appropriate affect, appropriate insight DS: Data Data Completed and Pending Labs on day of discharge: Preliminary micro results at discharge 05/22/24 08:32 Blood Culture - Preliminary Blood - Venous No growth after 48 hours. 05/22/24 08:06 Blood Culture - Preliminary Blood - Venous No growth after 48 hours. Discharge Plan Discharge Anticipated Discharge Date/Time: 05/26/24 10:18 Patient Disposition: Xfer [facility] Discharge Diagnosis: Esophageal ulcer Referrals: Shandra Meza MD [Physician] - 1 Week Po,Jordon Reyes MD [Primary Care Provider] - 1 Week Discharge Medications: New quetiapine 25 mg Tablet 25 mg PO BEDTIME Qty: 0 0RF sucralfate 100 mg/mL Suspension 1 g PO QIDACHS Qty: 0 0RF omeprazole 40 mg Capsule,Delayed Release(Dr/Ec) 40 mg PO BID@0630,1630 Qty: 0 0RF Continued ezetimibe 10 mg tablet 10 mg PO DAILY Qty: 90 1RF rosuvastatin 40 mg tablet 40 mg PO DAILY Qty: 90 1RF cholecalciferol (vitamin D3) 50 mcg (2,000 unit) capsule 50 mcg PO DAILY 90 Days Qty: 90 3RF Held aspirin [Kristie Low Dose Aspirin] 81 mg tablet,delayed release (DR/EC) 81 mg PO DAILY Qty: 90 3RF Hold Instructions: Resume on 04/28/24. Discharge Orders: Discharge Order (Routine); Ordered 05/26/24 Ordered By: Alcides Daly Diet: Advance to usual diet Activity on Discharge: As tolerated Stand Alone Forms: Patient Portal Discharge page Print Language: [place]de[place] Care Plan Goals: Avoid further bleeding Health Concerns: Esophageal ulcer Plan of Treatment: Continue omeprazole and Carafate. Follow up with Gastroenterology, restart aspirin on 05/29/2024 Assessment: See above
[2024-05-26 10:50] VITALS: BP 130/60; PULSE 64; RESP 18; TEMP 36.9; O2SAT 97
--- NOTE | 2024-05-26 11:40 | MHC.CM.PN ---
PT RECOMMENDING [facility] OFFERING CM SPOKE TO SISTER SONIDO [phone], SHE HAS ACCEPTED BED OFFER SHE WILL BRING IN CLOTHES AND A HCP FOR PT BLS TRANSPORT BOOKED WITH [facility] FOR 1430 HOURS
[2024-05-26 15:17] VITALS: BP 97/48; PULSE 75; RESP 16; TEMP 36.5; O2SAT 97
--- NOTE | 2024-06-05 07:03 | P.CDIM_ITS ---
PROVIDER RESPONSE TEXT: To clarify, the appropriate diagnosis supported by the clinical indicators: Hemorrhagic shock: possible QUERY TEXT: PHYSICIAN'S DOCUMENTATION REQUEST Date of Query: 06/03/2024 05:46 AM EDT Patient Name: Luna Hoang Admit Date: 05/22/2024 Dear Alcides Daly MD, RETROSPECTIVE QUERY A review of the medical record indicates additional documentation may be needed. Please review below and update the documentation accordingly. Clinical Indicators: ED dated 05/22/24 - N/V - EMS reports patient had onset of bloody vomit with associated blood clots. Noted bloody stool, hypotensive EN route and provided 250 cc IV fluid bolus. EMS states indicating a 2nd bag of fluids providing approximately 50 cc prior to arrival to ED. BP 89/55 L H/H 8.9/27.4 Clinical impression - Hemorrhagic shock, UGIB. ICU 05/22 - In the Ed her blood pressures were soft, hemoglobin dropped to 8.9 from 12.8 so was transf used 2 units PRBC in preparation for EGD. EGD showed esophageal ulcer that was clipped. Continue monitoring CBC Q 8 for 25 hours. Please clarify which of the following is the most likely etiology of the above symptoms and treatment rendered: Hemorrhagic shock possible, probable, suspected, resolved etc. Other specified Other (explain) Clinically unable to determine (explain) Thank you, Елена Fuller, CCS, CDIS Use of terms such as suspected, likely, concern for, or probable (associated with a specific diagnosi s that is being evaluated, monitored, or treated as if it exists) are acceptable and can be coded in the inpatient se tting, when documented at the time of discharge. Please use your independent medical judgment in providing your response. THIS QUERY IS PART OF THE PERMANENT MEDICAL RECORD
== END 2024-05-26 15:00 | disposition skilled nursing facility (03) | DRG 380 ==
LOC: HO.ED 11:52 → HO.EDOVER 12:06 → HO.ICU 12:13 → HO.IMC 18:27
PROVIDERS: Internal Medicine Gastroenterology; Admitting Provider Internal Medicine Critical Care Medicine; Emergency Provider Emergency Medicine; PCP Internal Medicine; Visit Provider Internal Medicine
PROC: 0DJ08ZZ Inspection of Upper Intestinal Tract, Via Natural or Artificial Opening Endoscopic (ICD-10-PCS; CPT 43235; principal; 2024-05-22 11:30)
DX: K22.11 Ulcer of esophagus with bleeding (principal); R57.8 Other shock; D62 Acute posthemorrhagic anemia; E87.21 Acute metabolic acidosis; K29.80 Duodenitis without bleeding; I25.10 Atherosclerotic heart disease of native coronary artery without angina pectoris; K29.70 Gastritis, unspecified, without bleeding; F03.90 Unspecified dementia, unspecified severity, without behavioral disturbance, psychotic disturbance, mood disturbance, and anxiety; M06.9 Rheumatoid arthritis, unspecified; Z95.5 Presence of coronary angioplasty implant and graft; Z95.0 Presence of cardiac pacemaker; Z79.82 Long term (current) use of aspirin; Z79.899 Other long term (current) drug therapy
CPT/HCPCS: 36415; 70450; 71045; 72125; 74178; 80048; 80076; 82272; 82803; 82947; 83605; 84484; 85025; 85027; 85610; 85730; 86850; 86900; 86901; 86923; 87040; 93005; 97162; 99285; C1889; J0171; J0613; J2371; J2405; J2470; J2543; J3010; P9016; Q9967

== ENCOUNTER → 2024-05-22 08:02 | Outpatient (BNV) | payer MEDICARE, MEDICAID, SELFPAY | PROVIDERS: Emergency Provider Emergency Medicine; PCP Internal Medicine; Visit Provider Radiology Diagnostic Radiology | DX: K92.2 Gastrointestinal hemorrhage, unspecified (principal); S19.9XXA Unspecified injury of neck, initial encounter; S09.90XA Unspecified injury of head, initial encounter; S29.9XXA Unspecified injury of thorax, initial encounter | CPT/HCPCS: 70450; 71045 ==

== ENCOUNTER → 2024-05-22 08:17 | Outpatient (BNV) | payer MEDICARE, MEDICAID, SELFPAY | PROVIDERS: Admitting Provider Internal Medicine Critical Care Medicine; Emergency Provider Emergency Medicine; PCP Internal Medicine; Visit Provider Internal Medicine Cardiovascular Disease | DX: I44.7 Left bundle-branch block, unspecified (principal) | CPT/HCPCS: 93010 ==

== ENCOUNTER → 2024-05-22 11:16 | Outpatient (BNV) | payer MEDICARE, MEDICAID, SELFPAY | PROVIDERS: Admitting Provider Internal Medicine Critical Care Medicine; Emergency Provider Emergency Medicine; PCP Internal Medicine; Visit Provider Internal Medicine Critical Care Medicine | DX: I35.0 Nonrheumatic aortic (valve) stenosis (principal); I25.10 Atherosclerotic heart disease of native coronary artery without angina pectoris; I44.7 Left bundle-branch block, unspecified; I73.9 Peripheral vascular disease, unspecified; R57.8 Other shock; E78.00 Pure hypercholesterolemia, unspecified; K92.2 Gastrointestinal hemorrhage, unspecified | CPT/HCPCS: 99223 ==

== ENCOUNTER → 2024-05-22 11:16 | Outpatient (BNV) | payer MEDICARE, MEDICAID, SELFPAY | PROVIDERS: Admitting Provider Internal Medicine Critical Care Medicine; Emergency Provider Emergency Medicine; PCP Internal Medicine; Visit Provider Internal Medicine Gastroenterology | DX: K92.2 Gastrointestinal hemorrhage, unspecified (principal); K25.0 Acute gastric ulcer with hemorrhage; K20.90 Esophagitis, unspecified without bleeding; K29.70 Gastritis, unspecified, without bleeding | CPT/HCPCS: 43236; 43255; 99221 ==

== ENCOUNTER → 2024-05-22 11:16 | Outpatient (BNV) | payer MEDICARE, MEDICAID, SELFPAY | PROVIDERS: Admitting Provider Internal Medicine Critical Care Medicine; Emergency Provider Emergency Medicine; PCP Internal Medicine; Visit Provider Internal Medicine | DX: I25.10 Atherosclerotic heart disease of native coronary artery without angina pectoris (principal) | CPT/HCPCS: 99232; 99233 ==